=== PATIENT | male | born 1950 | race Caucasian/White ===

== ENCOUNTER → 2018-03-18 07:10 | Outpatient (CLI) | payer MEDICARE, BC, SELFPAY ==
[2018-03-18 10:27] LABS: Alanine Aminotransferase 23 IU/L (21-72); Albumin 3.9 g/dL (3.5-5.0); Albumin Globulin Ratio 1.5 (1.0-2.8); Alkaline Phosphatase 91 U/L (38-126); Aspartate Aminotransferase 20 IU/L (17-59); BUN Creatinine Ratio 17.5 (6-22); Bilirubin Total 1.1 mg/dL (0.2-1.3); Blood Urea Nitrogen 14 mg/dL (9-20); Calcium 9.3 mg/dL (8.4-10.2); Carbon Dioxide 28 mmol/L (22-32); Chloride 104 mmol/L (98-107); Cholesterol 218 mg/dL (140-199); Estimated Glomerular Filt Rate > 60.0 mL/min (>60); Globulin 2.6 g/dL (1.7-4.1); Glucose 94 mg/dL (80-110); HDL Cholesterol 44 mg/dL (40-60); HEMOLYSIS < 15 (0-50); LDL Cholesterol Calculated 147 mg/dL (<100); Potassium 4.1 mmol/L (3.4-5.1); Sodium 143 mmol/L (137-145); Total Protein 6.5 g/dL (6.3-8.2); Triglycerides 137 mg/dL (35-150)
[2018-03-18 10:48] LABS: Prostate Specific Antigen Scrn 0.628 ng/mL (0.1-4.0)
== END ==
PROVIDERS: PCP Family Medicine; Visit Provider Family Medicine
DX: Z12.5 Encounter for screening for malignant neoplasm of prostate (principal); I25.10 Atherosclerotic heart disease of native coronary artery without angina pectoris
CPT/HCPCS: 36415; 80053; 80061; 84153; G0103

== ENCOUNTER 2018-07-21 06:38 | Day surgery (SDC) | payer MEDICARE, BC, SELFPAY ==
--- NOTE | 2018-07-21 | PATH_ITS ---
[facility] Accession Number: [id number] . 01 Material submitted: . PART A: SIGMOID COLON POLYP AT 30CM X2 PART B: CECAL POLYP (COLON) PART C: ASCENDING COLON POLYP PART D: COLON POLYP AT 65CM . 02 Diagnosis: A. Biopsy Sigmoid Colon Polyp at 30 cm: Tubular adenoma involving single biopsy fragment. Single polypoid-shaped fragment of normal appearing colon mucosa consistent with mucosal polypoid redundancy (negative for evidence of neoplasm and/or hyperplasia on multiple sections). . B. Biopsy Cecal Polyp: Tubular adenoma involving all three biopsy fragments. . C. Biopsy Ascending Colon Polyp: Tubular adenoma involving single biopsy fragment. . D. Biopsy Colon Polyp at 65 cm: Polypoid-shaped fragment of normal appearing colon mucosa consistent with mucosal polypoid redundancy. Negative for evidence of neoplasm on multiple histologic sections. MRV/07/23/2018 . 02 Electronically signed: . Horacio Madison MD, Pathologist NPI- [id number] . 01 Gross description: . Part A: SIGMOID COLON POLYP AT 30CM X2: Received in formalin are 2 fragment(s) of kelly, soft tissue measuring 0.5 x 0.3 x 0.2 cm to 0.3 x 0.3 x 0.2 cm submitted entirely in 1 cassette(s) Part B: CECAL POLYP (COLON): Received in formalin are 3 fragment(s) of kelly, soft tissue measuring 0.4 x 0.3 x 0.3 cm to 0.3 x 0.2 x 0.1 cm submitted entirely in 1 cassette(s) Part C: ASCENDING COLON POLYP: Received in formalin are 3 fragment(s) of kelly, soft tissue measuring 0.4 x 0.4 x 0.3 cm to 0.3 x 0.3 x 0.1 cm submitted entirely in 1 cassette(s) Part D: COLON POLYP AT 65CM: Received in formalin is 1 fragment(s) of kelly, soft tissue measuring 0.3 x 0.3 x 0.2 cm submitted entirely in 1 cassette(s) /CKI /CKI . 02 Pathologist provided ICD-10: D12.0 . 02 CPT . 276926, 512829, 564521, 334917 Specimen Comment: A duplicate report has been generated due to demographic updates. Performed at: 01 [facility] [address] [address], [place], [place] [id number] MD Boom Collado MD Phone: [phone] Performed at: [facility] [address] [place] [id number] MD Diego Dillon MD Phone: [phone]
[2018-07-21] MEDS: SODIUM CHLORIDE 0.9% 1,000 ML 100 ML IV (07:18)
[2018-07-21 07:19] VITALS: BP 126/78; PULSE 57; RESP 24; TEMP 36.3; O2SAT 97; BMI 32.5
--- NOTE | 2018-07-21 08:06 | PM.HP.1 ---
History of Present Illness Chief complaint: Colonoscopy; [address] Narrative: Patient is a gentleman whose had polyps removed in the past and 2 sisters with colon cancer. Both her older than he. His been about 7 years since his last colonoscopy and he is here for a colonoscopy. Patient History Family & Social History Social History: household members spouse Tobacco & Substance use: Smoking Status Former smoker alcohol intake current Meds Home Medications Medication Instructions Recorded Confirmed Type aspirin 81 mg PO QDAY #0 01/21/18 03/31/18 History simvastatin 40 mg PO HS #30 tab 01/21/18 03/31/18 Rx varicella-zoster glycoE [id number] 0.5 ml IM ONCE #1 each 03/31/18 03/31/18 Rx adj(PF) 50 mcg/0.5 mL IM susp, kit Allergies Allergy/AdvReac Type Severity Reaction Status Date / Time No Known Allergies Allergy Uncoded 03/31/18 09:12 Review of Systems Review of Systems All systems reviewed & are unremarkable except as noted in HPI and below Cardiovascular Comments: No cardiac symptoms since his last stent. He sees a clinical project coordinator regularly and is told that he is doing fine Exam Vital Signs (past 8 hours): - 07/21/18 07:19 Temperature 97.4 F L Pulse Rate 57 L Respiratory Rate 24 Blood Pressure 126/78 Pulse Oximetry 97 Oxygen Delivery Method Room Air Narrative Exam Narrative: Operative no apparent distress. Eyes are nonicteric. Lungs are clear to auscultation no rales or rhonchi. Heart regular rate and rhythm without murmur gallop. Abdomen is protuberant soft nontender without mass. Alert and oriented x3. Assessment & Plan Plan: Assessment/Plan Narrative: Will proceed to colonoscopy. I have discussed the procedure and the rationale with the patient including risks of bleeding, perforation which would necessitate a major operation, failure to find remove all lesions and the potential to tattoo. They appeared to understand and wished to proceed.
--- NOTE | 2018-07-21 08:08 | PM.PREOP ---
Pre-operative Note Interval Note Pre-op Check: Yes History & Physical exam performed today by Physician Changes: No ASA Class (for procedural sedation): III
[2018-07-21] MEDS: MIDAZOLAM 5 MG/5 ML VIAL IV (08:38)
[2018-07-21] MEDS: fentaNYL 250 MCG/5 ML INJ IV (08:39)
--- NOTE | 2018-07-21 08:50 | PM.OP.ENDO ---
Operative Date/Time/Diagnoses Date of procedure: 07/21/18 Time of procedure: 08:50 Pre-op diagnosis: Screening exam. History of polyps. Family history of colon cancer. Last colonoscopy 7 years ago. Post-op diagnosis: same (Diverticulosis principally of the sigmoid colon, internal hemorrhoids, multiple polyps all small.) Procedure & Clinicians Study performed: Colonoscopy with cold biopsy Same procedure as scheduled: Yes Indications: Screening Surgeon: Brenton Vargas Procedure Notes SCOAP/Timeout: Performed Procedure in detail: The patient was placed in the left lateral decubitus position and underwent IV sedation directed by the surgeon consisting of fentanyl and Versed. Digital exam was unremarkable though I could not feel is prostate well. The scope was inserted and advanced through the rectum into the sigmoid, descending, transverse, and ascending colon. Under did extensive sigmoid diverticulosis coming into the colon and I biopsied a small lesion at approximately 30 cm from the anal verge and removed it. The cecum was reached identified by the ileocecal valve and the appendiceal opening. The ileocecal valve was[] cannulated. The scope was gradually brought out. Additional Polyps were found at cecum, ascending colon and at 65 cm from the anal verge. An additional polyp was found at 20 cm and placed in the 1st container with vial polyp at 30 cm. The scope ultimately was retroflexed in the rectum. The appearance was remarkable for prominent veins and hemorrhoids without ulceration.. The scope was removed and the patient tolerated the procedure well Scope withdrawal time: 14 min Sedation minutes: 29 Findings: diverticulosis (Principal in the sigmoid but scattered elsewhere throughout the colon.), internal hemorrhoids and polyp (Multiple. All under a cm.) Specimen(s): other (Polyps) Complications: none Recommendations: Colonscopy in 5 years Follow up: as needed Disposition: PACU
[2018-07-21 08:53] VITALS: BP 126/74; PULSE 60; RESP 12; TEMP 36.8; O2SAT 99
[2018-07-21 09:01] VITALS: BP 114/69; PULSE 58; RESP 16; O2SAT 94
[2018-07-21 09:06] VITALS: BP 122/78; PULSE 54; RESP 12; O2SAT 96
[2018-07-21 09:10] VITALS: BP 132/70; PULSE 55; RESP 14; TEMP 37.3; O2SAT 96
[2018-07-21 09:20] VITALS: BP 118/76; PULSE 54; RESP 16; TEMP 36.4; O2SAT 97
== END 2018-07-21 09:30 | disposition home or self-care (01) ==
PROVIDERS: PCP Family Medicine; Visit Provider Specialist
PROC: 0DJD8ZZ Inspection of Lower Intestinal Tract, Via Natural or Artificial Opening Endoscopic (ICD-10-PCS; CPT 45378; principal; 2018-07-21 07:45)
DX: Z86.010 Personal history of colon polyps (principal); Z80.0 Family history of malignant neoplasm of digestive organs; K57.30 Diverticulosis of large intestine without perforation or abscess without bleeding; K64.8 Other hemorrhoids; Z87.891 Personal history of nicotine dependence; D12.0 Benign neoplasm of cecum
CPT/HCPCS: 45380; 88305; 99152; 99153; J2250; J3010

== ENCOUNTER → 2019-01-13 06:48 | Outpatient (CLI) | payer MEDICARE, BC, SELFPAY ==
[2019-01-13 08:29] LABS: Add Manual Diff / Slide Review NO; Basophils Absolute Auto 100 /uL (0-100); Basophils Percent Auto 1.3 % (0-2); Eosinophils Absolute Auto 100 /uL (0-450); Eosinophils Percent Auto 2.8 % (2-4); Hematocrit 49.3 % (41-53); Hemoglobin 16.6 g/dL (13.5-17.5); Lymphocytes Absolute Auto 900 /uL (1100-4500); Lymphocytes Percent Auto 20.1 % (25-40); Mean Corpuscular HGB Conc 33.7 % (30-36); Mean Corpuscular Hemoglobin 29.7 PG (26-34); Mean Corpuscular Volume 87.9 fL (80-100); Monocytes Absolute Auto 400 /uL (0-900); Monocytes Percent Auto 8.9 % (3-14); Neutrophils Absolute Auto 3100 /uL (1500-7000); Neutrophils Percent Auto 66.9 % (50-75); Platelet Count 148 X10^3/uL (150-400); Red Blood Cell Count 5.61 X10^6/uL (4.5-5.9); Red Cell Distribution Width 14.8 % (11.6-14.8); White Blood Cell Count 4.6 X10^3/uL (4.5-11.0)
[2019-01-13 08:56] LABS: Alanine Aminotransferase 24 IU/L (21-72); Albumin 4.5 g/dL (3.5-5.0); Albumin Globulin Ratio 1.7 (1.0-2.8); Alkaline Phosphatase 93 U/L (38-126); Amylase 64 U/L (30-110); Aspartate Aminotransferase 22 IU/L (17-59); BUN Creatinine Ratio 17.8 (6-22); Bilirubin Total 1.6 mg/dL (0.2-1.3); Blood Urea Nitrogen 16 mg/dL (9-20); Calcium 9.5 mg/dL (8.4-10.2); Carbon Dioxide 27 mmol/L (22-32); Chloride 107 mmol/L (98-107); Estimated Glomerular Filt Rate > 60.0 mL/min (>60); Globulin 2.6 g/dL (1.7-4.1); Glucose 97 mg/dL (80-110); Lipase 54 U/L (23-300); Potassium 3.9 mmol/L (3.4-5.1); Sodium 142 mmol/L (137-145); Total Protein 7.1 g/dL (6.3-8.2)
[2019-01-13 09:17] LABS: C-Reactive Protein Quant 0.8 mg/dL (<1.0); HEMOLYSIS < 15 (0-50)
== END ==
PROVIDERS: PCP Family Medicine; Visit Provider Family Medicine
DX: R10.32 Left lower quadrant pain (principal)
CPT/HCPCS: 36415; 80053; 82150; 83690; 85025; 86140

== ENCOUNTER → 2019-01-21 10:01 | Outpatient (CLI) | payer MEDICARE, BC, SELFPAY ==
--- NOTE | 2019-01-21 11:12 | DI.CT.S_ITS ---
PROCEDURE: CT ABDOMEN PELVIS W CON INDICATIONS: left lower abdominal pain TECHNIQUE: After the administration of oral and intravenous contrast, 5 mm thick sections acquired from the diaphragms to the symphysis. 5 mm thick coronal and sagittal reformats were performed. For radiation dose reduction, the following was used: automated exposure control, adjustment of mA and/or kV according to patient size. COMPARISON: [facility], CT, ANGIO CHEST ABDOMEN PELVIS, 03/25/2017, 7:00. FINDINGS: Image quality: Excellent. ABDOMEN: Lung bases: Lung bases are clear. Heart size is normal. Moderate hiatal hernia containing stomach. Solid organs: There is mild hepatic steatosis. No focal liver masses. Gallbladder contains multiple small gallstones. Biliary system is non-dilated. Pancreas enhances normally. Spleen is normal in size and enhancement. No adrenal nodules. Kidneys are normal in size and enhancement, without hydronephrosis. Peritoneum and bowel: There is diffuse thickening of the sigmoid wall with multiple sigmoid diverticuli. No evidence acute diverticulitis. The appearance is similar to the prior CT of 03/25/17. Nodes and vessels: No retroperitoneal or mesenteric adenopathy. Aorta and inferior vena cava are normal in caliber. Miscellaneous: No ventral hernias. PELVIS: Genitourinary: Bladder wall thickness is normal. Miscellaneous: Left inguinal hernia containing fat. Bones: No suspicious bony lesions. No vertebral body compression fractures. IMPRESSION: 1. Moderate hiatal hernia. 2. Hepatic steatosis. 3. Gallstones. 4. Extensive sigmoid diverticulosis with a diffusely thickened wall of the sigmoid. Comment: It is noted that the patient has had previous colonoscopy in July,. Dictated by: Kermit Farris M.D. on 01/21/2019 at 13:36 Approved by: Kermit Farris M.D. on 01/21/2019 at 14:03
== END ==
PROVIDERS: PCP Family Medicine; Visit Provider Family Medicine
DX: R10.32 Left lower quadrant pain (principal); K44.9 Diaphragmatic hernia without obstruction or gangrene; K76.0 Fatty (change of) liver, not elsewhere classified; K57.30 Diverticulosis of large intestine without perforation or abscess without bleeding; K40.90 Unilateral inguinal hernia, without obstruction or gangrene, not specified as recurrent; K80.20 Calculus of gallbladder without cholecystitis without obstruction
CPT/HCPCS: 74177; Q9967

== ENCOUNTER → 2019-08-05 10:42 | Outpatient (CLI) | payer MEDICARE, BC, SELFPAY ==
--- NOTE | 2019-08-05 10:43 | DI.US.S_ITS ---
PROCEDURE: US EXTREMITY NONVASC UPPER LT INDICATIONS: LUMPS IN LEFT UPPER ARM TECHNIQUE: Real-time scanning was performed of the area of interest, with image documentation. COMPARISON: None. FINDINGS: In the lateral aspect of the left upper arm level of mid humerus, there is a 7 x 6 x 7 mm hyperechoic nodule within the subcutaneous tissue, correlating with the palpable abnormality. On Doppler ultrasound, there is no vascularity. In the medial aspect of the left upper arm, there is a hypo-to isoechoic nodule measuring 9 x 6 x 7 mm, correlating with the palpable abnormality. On Doppler ultrasound, there is no ascularity. IMPRESSION: 1. A 7 x 6 x 7 mm hyperechoic, avascular subcutaneous nodule in the lateral aspect of the left arm at the level of mid humerus, most likely a lipoma. 2. A 9 x 6 x 7 mm damj-[id number]-rzeajzhxy, avascular nodule in the medial aspect of the left arm level of mid humerus, uncertain etiology. This may represent a fibroma, granuloma or lipoma, or lymph node. If there is rapid growth, MRI with and without contrast is recommended for further evaluation. Otherwise recommend clinical followup and ultrasound followup if clinically indicated. Dictated by: Nieves Steiner M.D. on 08/05/2019 at 14:56 Approved by: Nieves Steiner M.D. on 08/05/2019 at 15:10
== END ==
PROVIDERS: PCP Family Medicine; Visit Provider Nurse Practitioner
DX: R22.32 Localized swelling, mass and lump, left upper limb (principal)
CPT/HCPCS: 76882

== ENCOUNTER → 2019-09-07 09:17 | Outpatient (CLI) | payer MEDICARE, BC, SELFPAY ==
[2019-09-07 11:36] LABS: Alanine Aminotransferase 23 IU/L (<50); Albumin 4.4 g/dL (3.5-5.0); Albumin Globulin Ratio 1.8 (1.0-2.8); Alkaline Phosphatase 86 U/L (38-126); Aspartate Aminotransferase 26 IU/L (17-59); Blood Urea Nitrogen 17 mg/dL (9-20); Calcium 9.7 mg/dL (8.4-10.2); Carbon Dioxide 28 mmol/L (22-32); Chloride 104 mmol/L (98-107); Cholesterol 261 mg/dL (140-199); Estimated Glomerular Filt Rate > 60.0 mL/min (>60); Globulin 2.4 g/dL (1.7-4.1); Glucose 87 mg/dL (80-110); HDL Cholesterol 44 mg/dL (40-60); HEMOLYSIS < 15 (0-50); LDL Cholesterol Calculated 175 mg/dL (<100); Potassium 4.6 mmol/L (3.4-5.1); Sodium 139 mmol/L (137-145); Total Protein 6.8 g/dL (6.3-8.2); Triglycerides 209 mg/dL (35-150)
== END ==
PROVIDERS: PCP Family Medicine; Visit Provider Family Medicine
DX: E78.5 Hyperlipidemia, unspecified (principal); I25.10 Atherosclerotic heart disease of native coronary artery without angina pectoris
CPT/HCPCS: 36415; 80053; 80061

== ENCOUNTER → 2020-08-28 09:44 | Outpatient (CLI) | payer MEDICARE, BC, SELFPAY ==
--- NOTE | 2020-08-28 09:46 | DI.RAD.S_ITS ---
PROCEDURE: XR RIBS RT MIN 3V W CXR 1V INDICATIONS: low t spine on the right side over rib 12 posteriorly TECHNIQUE: 2 views of the right ribs were acquired, along with a single view chest. COMPARISON: None. FINDINGS: Surgical changes and devices: None. Bones and chest wall: No fractures or dislocations. No suspicious bony lesions. Overlying soft tissues appear unremarkable. Lungs and pleura: No pleural effusions or pneumothorax. Lungs appear clear. Mediastinum: Mediastinal contours appear normal. Heart size is normal. A large hiatal hernia appears superimposed on the lower heart. IMPRESSION: No trauma found. Apparent large hiatal hernia superimposed on the lower heart at the chest midline. Dictated by: Markie Amos M.D. on 08/28/2020 at 10:12 Approved by: Markie Amos M.D. on 08/28/2020 at 10:20
--- NOTE | 2020-08-28 09:46 | DI.RAD.S_ITS ---
PROCEDURE: XR THORACIC SPINE 3V INDICATIONS: low t spine on the right side over rib 12 posteriorly TECHNIQUE: 3 views of the thoracic spine were acquired. COMPARISON: None. FINDINGS: Bones: No fractures or dislocations. No suspicious bony lesions. Twelve pairs of ribs are noted, and appear intact where visualized. Soft tissues: No paravertebral stripe thickening. IMPRESSION: No trauma found. Source of current pain is not seen. Mild degenerative disc disease incidentally noted over the lower half of the thoracic spine. Please note that if there is clinical concern for presence of spine infection MR scanning with contrast should be obtained. Dictated by: Markie Amos M.D. on 08/28/2020 at 10:20 Approved by: Markie Amos M.D. on 08/28/2020 at 10:21
== END ==
PROVIDERS: PCP Family Medicine; Referring Provider Physician Assistant; Visit Provider Physician Assistant
DX: M54.5 Low back pain (principal)
CPT/HCPCS: 71101; 72072

== ENCOUNTER → 2020-10-10 07:35 | Outpatient (CLI) | payer MEDICARE, BC, SELFPAY ==
[2020-10-10 09:01] LABS: Add Manual Diff / Slide Review NO; Basophils Absolute Auto 100 /uL (0-100); Eosinophils Absolute Auto 100 /uL (0-450); Eosinophils Percent Auto 2.3 % (2-4); Hemoglobin 15.5 g/dL (13.5-17.5); Lymphocytes Absolute Auto 1000 /uL (1100-4500); Lymphocytes Percent Auto 16.5 % (25-40); Mean Corpuscular HGB Conc 33.6 % (30-36); Mean Corpuscular Hemoglobin 28.5 PG (26-34); Mean Corpuscular Volume 84.9 fL (80-100); Monocytes Absolute Auto 400 /uL (0-900); Monocytes Percent Auto 7.4 % (3-14); Neutrophils Absolute Auto 4300 /uL (1500-7000); Neutrophils Percent Auto 72.8 % (50-75); Platelet Count 122 X10^3/uL (150-400); Red Blood Cell Count 5.42 X10^6/uL (4.5-5.9); Red Cell Distribution Width 16.4 % (11.6-14.8); White Blood Cell Count 5.9 X10^3/uL (4.5-11.0)
[2020-10-10 09:17] LABS: Alanine Aminotransferase 20 IU/L (<50); Albumin 3.9 g/dL (3.5-5.0); Albumin Globulin Ratio 1.9 (1.0-2.8); Alkaline Phosphatase 101 U/L (38-126); Aspartate Aminotransferase 22 IU/L (17-59); BUN Creatinine Ratio 18.4 (6-22); Bilirubin Total 1.2 mg/dL (0.2-1.3); Blood Urea Nitrogen 16 mg/dL (9-20); Calcium 9.2 mg/dL (8.4-10.2); Carbon Dioxide 28 mmol/L (22-32); Chloride 107 mmol/L (98-107); Cholesterol 130 mg/dL (140-199); Estimated Glomerular Filt Rate > 60.0 mL/min (>60); Globulin 2.1 g/dL (1.7-4.1); Glucose 106 mg/dL (80-110); HDL Cholesterol 38 mg/dL (40-60); HEMOLYSIS < 15 (0-50); LDL Cholesterol Calculated 61 mg/dL (<100); Potassium 4.2 mmol/L (3.4-5.1); Sodium 138 mmol/L (137-145); Triglycerides 155 mg/dL (35-150)
[2020-10-10 09:31] LABS: Prostate Specific Antigen Scrn 0.643 ng/mL (0.1-4.0)
== END ==
PROVIDERS: PCP Family Medicine; Referring Provider Family Medicine; Visit Provider Family Medicine
DX: I25.10 Atherosclerotic heart disease of native coronary artery without angina pectoris (principal); Z12.5 Encounter for screening for malignant neoplasm of prostate
CPT/HCPCS: 36415; 80053; 80061; 85025; G0103

== ENCOUNTER → 2020-11-20 11:05 | Outpatient (CLI) | payer MEDICARE, BC, SELFPAY ==
[2020-11-20 11:45] LABS: COVID19 -Nasal RAPID Negative (Negative)
== END ==
PROVIDERS: PCP Family Medicine; Visit Provider Nurse Practitioner
DX: Z20.822 Contact with and (suspected) exposure to COVID-19 (principal); Z01.812 Encounter for preprocedural laboratory examination
CPT/HCPCS: 87635; C9803

== ENCOUNTER 2020-11-21 06:23 | Day surgery (SDC) | payer MEDICARE, BC, SELFPAY ==
[2020-11-21 07:00] VITALS: BP 142/80; PULSE 56; RESP 16; TEMP 36.8; O2SAT 97; BMI 33.2
[2020-11-21] MEDS: PROPARACAINE 0.5% OPHTH SOL 2 DROPS EYE-OP (07:02)
[2020-11-21] MEDS: CATARACT EYE COMPOUND (10 DROPS/SYRINGE) 3 DROPS EYE-OP (07:13)
--- NOTE | 2020-11-21 07:33 | P.OP_ITS ---
Operative Date/Time/Diagnoses Pre-op diagnosis: Nuclear cataract right eye Procedure & Clinicians Procedure: Cataract Surgery Same procedure as scheduled: Yes Surgeon: Rene Carvalho Anesthesia Type: MAC +/- and Sedation Operative Notes Procedure in detail: Patient brought to the operating suite. Tetracaine drops placed in the right eye. The marking instrument was used to farheen the vertical and horizontal meridian. Patient was prepped and draped in sterile manner. Wire lid speculum was placed in the eye. The marking instrument was used to farheen the 10 degree meridian. Betadine drops were placed on the eye. This was irrigated. Lidocaine jelly was placed on the eye. A paracentesis port was created with a side-port blade. 0.1 mL 1% preservative free lidocaine was injected into the anterior chamber. The anterior chamber was deepened with viscoelastic. 2.6 mm keratome was used to create a temporal clear corneal incision. Cystotome and Utrata forceps were used to create continuous tear capsulorrhexis. Balanced salt solution was used to hydro dissect the nucleus. The phacoemulsification handpiece was inserted and the nucleus was removed using the stop and chop technique. The irrigation aspiration handpiece was inserted and the remaining cortex was removed. Anterior chamber was deepened with viscoelastic. An Montiel [id number] intraocular lens with a power of 17.5 was injected into the capsular bag. Irrigation aspiration handpiece was inserted and the remaining viscoelastic was removed. The lens was rotated to the 10 degree m eridian. Incision was hydrated with balanced salt solution and found to be leak free with pressure with Weck-Jody sponges. 0.1 mL Vigamox injected anterior chamber. 0.3 mL Kenalog 10 mg was injected subconjunctivally. Lid speculum was removed. The patient left the operating room in excellent condition. Complications: none Post-operative Condition: stable Disposition: same day surgery
--- NOTE | 2020-11-21 07:33 | PM.PREOP ---
Pre-operative Note Interval Note History & Physical reviewed/Exam performed by Physician: Yes Changes to H&P: No
[2020-11-21] MEDS: CHONDROIDTIN/SOD HYALURONATE 1.05 ML SYRINGE INTRAOCULA (07:54)
[2020-11-21] MEDS: LIDOCAINE JELLY 2% 5 ML 1 APPLIC TOP (07:54)
[2020-11-21] MEDS: MOXIFLOXACIN INJ 5 MG/ML VIAL EYE-OP (07:55)
[2020-11-21] MEDS: TRIAMCINOLONE 50 MG/5 ML VIAL INJ (07:55)
[2020-11-21] MEDS: TETRACAINE 0.5% OPHTH DROPS 4 ML 2 DROPS EYE-OP (07:55)
[2020-11-21] MEDS: PHENYLEPHRINE/LIDOCAINE VIAL (OR) 0.2 ML EYE-OP (07:55)
[2020-11-21] MEDS: BALANCED SALT IRRIG SOLN NO.2 500 ML, EPINEPHrine 1 MG IRR (07:56)
[2020-11-21 08:05] VITALS: BP 112/73; PULSE 54; RESP 16; TEMP 36.2; O2SAT 97
== END 2020-11-21 08:19 | disposition home or self-care (01) ==
PROVIDERS: PCP Family Medicine; Referring Provider Ophthalmology; Visit Provider Ophthalmology
PROC: (CPT 66984; principal; 2020-11-21 07:45)
DX: H25.11 Age-related nuclear cataract, right eye (principal); I25.2 Old myocardial infarction
CPT/HCPCS: 66984; J0171; J2250; J3010; J3301; V2787

== ENCOUNTER → 2020-12-04 15:16 | Outpatient (CLI) | payer MEDICARE, SELFPAY ==
[2020-12-04 16:50] LABS: COVID19 -Nasal RAPID Negative (Negative)
== END ==
PROVIDERS: PCP Family Medicine; Visit Provider Nurse Practitioner
DX: Z01.812 Encounter for preprocedural laboratory examination (principal); Z20.822 Contact with and (suspected) exposure to COVID-19
CPT/HCPCS: 87635; C9803

== ENCOUNTER 2020-12-05 06:51 | Day surgery (SDC) | payer MEDICARE, OTHER, SELFPAY ==
[2020-12-05 07:20] VITALS: BP 148/83; PULSE 56; RESP 18; TEMP 35.8; O2SAT 97; BMI 33.2
[2020-12-05] MEDS: PROPARACAINE 0.5% OPHTH SOL 2 DROPS EYE-OP (07:25)
[2020-12-05] MEDS: CATARACT EYE COMPOUND (10 DROPS/SYRINGE) 3 DROPS EYE-OP (07:33)
--- NOTE | 2020-12-05 08:00 | P.OP_ITS ---
Operative Date/Time/Diagnoses Pre-op diagnosis: Nuclear Cataract Left eye Post-op diagnosis: same Procedure & Clinicians Same procedure as scheduled: Yes Surgeon: Rene Carvalho Anesthesia Type: MAC +/- and Sedation Operative Notes Procedure in detail: Patient brought to the operating suite. Tetracaine drops placed in the left eye. marking instrument was used to farheen vertical and horizontal meridians. Patient was prepped and draped in sterile manner. Wire lid speculum was placed in the eye. Marking instrument was used to farheen 175 degree meridian. Betadine drops were placed on the eye. This was irrigated. Lidocaine jelly was placed on the eye. A paracentesis port was created with a side-port blade. 0.1 mL 1% preservative free lidocaine was injected into the anterior chamber. The anterior chamber was deepened with viscoelastic. 2.6 mm keratome was used to create a temporal clear corneal incision. Cystotome and Utrata forceps were used to create continuous tear capsulorrhexis. Balanced salt solution was used to hydro dissect the nucleus. The phacoemulsification handpiece was inserted and the nucleus was removed using the stop and chop technique. The irrigation aspiration handpiece was inserted and the remaining cortex was removed. Anterior chamber was deepened with viscoelastic. An Montiel [id number] intraocular lens with a power of 17.5 was injected into the capsular bag. Irrigation aspiration handpiece was inserted and the remaining viscoelastic was removed. The lens was rotated to the 175 degree meridian. Incision was hydrated with balanced salt solution and found to be leak free with pressure with Weck- Jody sponges. 0.1 mL Vigamox injected anterior chamber. 0.3 mL Kenalog 10 mg was injected subconjunctivally. Lid speculum was removed. The patient left the operating room in excellent condition. Complications: none Post-operative Condition: stable Disposition: same day surgery
--- NOTE | 2020-12-05 08:00 | PM.PREOP ---
Pre-operative Note Interval Note History & Physical reviewed/Exam performed by Physician: Yes Changes to H&P: No
[2020-12-05] MEDS: LIDOCAINE JELLY 2% 5 ML 1 APPLIC TOP (08:19)
[2020-12-05] MEDS: CHONDROIDTIN/SOD HYALURONATE 1.05 ML SYRINGE INTRAOCULA (08:19)
[2020-12-05] MEDS: MOXIFLOXACIN INJ 5 MG/ML VIAL EYE-OP (08:20)
[2020-12-05] MEDS: PHENYLEPHRINE/LIDOCAINE VIAL (OR) 0.2 ML EYE-OP (08:20)
[2020-12-05] MEDS: BALANCED SALT IRRIG SOLN NO.2 500 ML, EPINEPHrine 1 MG IRR (08:21)
[2020-12-05] MEDS: TRIAMCINOLONE 50 MG/5 ML VIAL INJ (08:21)
[2020-12-05 08:40] VITALS: BP 139/84; PULSE 56; RESP 16; TEMP 36.2; O2SAT 95
== END 2020-12-05 08:41 | disposition home or self-care (01) ==
PROVIDERS: PCP Family Medicine; Referring Provider Family Medicine; Visit Provider Ophthalmology
PROC: (CPT 66984; principal; 2020-12-05 08:15)
DX: H25.12 Age-related nuclear cataract, left eye (principal); I25.2 Old myocardial infarction; E78.5 Hyperlipidemia, unspecified
CPT/HCPCS: 66984; J0171; J2250; J3010; J3301; V2787

== ENCOUNTER → 2021-03-27 06:29 | Outpatient (CLI) | payer MEDICARE, OTHER, SELFPAY ==
--- NOTE | 2021-03-27 | DI.MRI.S_ITS ---
PROCEDURE: MR LUMBAR SPINE WO CON INDICATIONS: Spinal stenosis, lumbar region with neurogenic cla TECHNIQUE: Noncontrast sagittal T1 spin echo and T2 fast echo, sagittal STIR, axial T1 and T2 fast spin echo through the lumbar spine. In cases with scoliosis, additional coronal T2 fast spin echo may be performed. COMPARISON: [facility], CR, XR LUMBAR SPINE WITH OLBIQUES PLUS FLEXION EXTENSION, 03/19/2021, 8:56. FINDINGS: Image quality: Excellent. Alignment and Curvature: There is trace retrolithesis of L1 on L2, L2 on L3, L3 on L4 and L5 on S1. Bone Marrow: Marrow is of normal overall signal. No acute vertebral body compression fractures. Spinal Cord: Conus medullaris terminates at the L1 level. Visualized cord demonstrates normal signal and size. Paraspinous Soft Tissues: No paravertebral masses. Left renal cyst is noted. Discs: Moderate to severe desiccation is present throughout the lumbar spine most severe at L3-4, L5-S1. L1-L2: Minimal disc bulge without spinal stenosis. No foraminal narrowing. Facet and ligamentum flavum hypertrophy is present. L2-L3: Minimal disc bulge without spinal stenosis. Mild to moderate right and mild left foraminal narrowing. Facet and ligamentum flavum hypertrophy is present. L3-L4: Mild disc bulge with minimal canal narrowing. Mild left and severe right foraminal narrowing with particular narrowing and nerve root flattening through the subarticular recess. Facet and ligamentum flavum hypertrophy are present. L4-L5: Mild disc bulge with minimal canal narrowing. Moderate to severe left and mild right foraminal narrowing with facet and ligamentum flavum hypertrophy. L5-S1: Mild disc bulge without spinal stenosis. No foraminal narrowing. Facet and ligamentum flavum hypertrophy are present. IMPRESSION: 1. Multilevel degenerative changes. 2. Multilevel foraminal narrowing most severe at L3-4 and L4-5 secondary to facet/ligamentum flavum arthropathy. Dictated by: Sherry Owen M.D. on 03/27/2021 at 9:19 Approved by: Sherry Owen M.D. on 03/27/2021 at 9:48
== END ==
PROVIDERS: PCP Family Medicine; Referring Provider Physical Medicine & Rehabilitation Pain Medicine; Visit Provider Physical Medicine & Rehabilitation Pain Medicine
DX: M48.062 Spinal stenosis, lumbar region with neurogenic claudication (principal); M47.816 Spondylosis without myelopathy or radiculopathy, lumbar region; M47.817 Spondylosis without myelopathy or radiculopathy, lumbosacral region
CPT/HCPCS: 72148

== ENCOUNTER → 2021-08-09 07:48 | Outpatient (CLI) | payer MEDICARE, OTHER, SELFPAY ==
[2021-08-09 08:45] LABS: Add Manual Diff / Slide Review NO; Basophils Absolute Auto 100 /uL (0-100); Basophils Percent Auto 1.7 % (0-2); Eosinophils Absolute Auto 200 /uL (0-450); Eosinophils Percent Auto 4.2 % (2-4); Hematocrit 45.6 % (41-53); Hemoglobin 15.1 g/dL (13.5-17.5); Lymphocytes Absolute Auto 1200 /uL (1100-4500); Lymphocytes Percent Auto 20.5 % (25-40); Mean Corpuscular HGB Conc 33.2 % (30-36); Mean Corpuscular Hemoglobin 27.8 PG (26-34); Mean Corpuscular Volume 83.6 fL (80-100); Monocytes Absolute Auto 500 /uL (0-900); Monocytes Percent Auto 7.9 % (3-14); Neutrophils Absolute Auto 3800 /uL (1500-7000); Neutrophils Percent Auto 65.7 % (50-75); Platelet Count 139 X10^3/uL (150-400); Red Blood Cell Count 5.45 X10^6/uL (4.5-5.9); Red Cell Distribution Width 16.2 % (11.6-14.8); White Blood Cell Count 5.8 X10^3/uL (4.5-11.0)
[2021-08-09 08:59] LABS: Alanine Aminotransferase 24 IU/L (<50); Albumin 4.2 g/dL (3.5-5.0); Albumin Globulin Ratio 1.8 (1.0-2.8); Alkaline Phosphatase 94 U/L (38-126); Aspartate Aminotransferase 24 IU/L (17-59); BUN Creatinine Ratio 13.6 (6-22); Bilirubin Total 1.3 mg/dL (0.2-1.3); Blood Urea Nitrogen 14 mg/dL (9-20); Calcium 9.3 mg/dL (8.4-10.2); Carbon Dioxide 29 mmol/L (22-32); Chloride 106 mmol/L (98-107); Cholesterol 135 mg/dL (140-199); Estimated Glomerular Filt Rate > 60.0 mL/min (>60); Globulin 2.3 g/dL (1.7-4.1); Glucose 103 mg/dL (80-110); HDL Cholesterol 40 mg/dL (40-60); HEMOLYSIS < 15 (0-50); LDL Cholesterol Calculated 67 mg/dL (<100); Potassium 4.2 mmol/L (3.4-5.1); Sodium 142 mmol/L (137-145); Total Protein 6.5 g/dL (6.3-8.2); Triglycerides 141 mg/dL (35-150)
== END ==
PROVIDERS: PCP Family Medicine; Referring Provider Internal Medicine Cardiovascular Disease; Visit Provider Internal Medicine Cardiovascular Disease
DX: I25.10 Atherosclerotic heart disease of native coronary artery without angina pectoris (principal)
CPT/HCPCS: 36415; 80053; 80061; 85025

== ENCOUNTER → 2021-09-26 07:53 | Outpatient (CLI) | payer MEDICARE, OTHER, SELFPAY ==
[2021-09-26 08:58] LABS: Hemoglobin A1C% w Est Avg Glu 5.5 % (4.0-6.0)
[2021-09-26 09:27] LABS: Alanine Aminotransferase 20 IU/L (<50); Albumin 3.9 g/dL (3.5-5.0); Albumin Globulin Ratio 1.8 (1.0-2.8); Alkaline Phosphatase 91 U/L (38-126); Aspartate Aminotransferase 23 IU/L (17-59); BUN Creatinine Ratio 13.6 (6-22); Blood Urea Nitrogen 16 mg/dL (9-20); Calcium 9.7 mg/dL (8.4-10.2); Carbon Dioxide 30 mmol/L (22-32); Chloride 107 mmol/L (98-107); Estimated Glomerular Filt Rate > 60.0 mL/min (>60); Globulin 2.2 g/dL (1.7-4.1); Glucose 110 mg/dL (80-110); HEMOLYSIS < 15 (0-50); Potassium 4.3 mmol/L (3.4-5.1); Sodium 142 mmol/L (137-145); Total Protein 6.1 g/dL (6.3-8.2)
== END ==
PROVIDERS: PCP Family Medicine; Referring Provider Physician Assistant; Visit Provider Physician Assistant
DX: I25.10 Atherosclerotic heart disease of native coronary artery without angina pectoris (principal); R73.01 Impaired fasting glucose; E66.9 Obesity, unspecified
CPT/HCPCS: 36415; 80053; 83036

== ENCOUNTER → 2021-10-18 08:03 | Outpatient (CLI) | payer MEDICARE, OTHER, SELFPAY ==
[2021-10-18 09:11] LABS: Add Manual Diff / Slide Review NO; Basophils Absolute Auto 100 /uL (0-100); Basophils Percent Auto 1.4 % (0-2); Eosinophils Absolute Auto 300 /uL (0-450); Eosinophils Percent Auto 4.6 % (2-4); Hematocrit 41.2 % (41-53); Hemoglobin 13.4 g/dL (13.5-17.5); Lymphocytes Absolute Auto 1100 /uL (1100-4500); Lymphocytes Percent Auto 17.9 % (25-40); Mean Corpuscular HGB Conc 32.5 % (30-36); Mean Corpuscular Hemoglobin 26.5 PG (26-34); Mean Corpuscular Volume 81.7 fL (80-100); Monocytes Absolute Auto 500 /uL (0-900); Neutrophils Absolute Auto 4000 /uL (1500-7000); Neutrophils Percent Auto 68.1 % (50-75); Platelet Count 157 X10^3/uL (150-400); Red Blood Cell Count 5.05 X10^6/uL (4.5-5.9); Red Cell Distribution Width 15.9 % (11.6-14.8); White Blood Cell Count 5.9 X10^3/uL (4.5-11.0)
== END ==
PROVIDERS: PCP Family Medicine; Referring Provider Physician Assistant; Visit Provider Physician Assistant
DX: I25.10 Atherosclerotic heart disease of native coronary artery without angina pectoris (principal)
CPT/HCPCS: 36415; 85025

== ENCOUNTER → 2022-06-26 07:10 | Outpatient (CLI) | payer MEDICARE, OTHER, SELFPAY ==
[2022-06-26 09:29] LABS: Alanine Aminotransferase 16 IU/L (<50); Albumin 4.2 g/dL (3.5-5.0); Albumin Globulin Ratio 1.8 (1.0-2.8); Alkaline Phosphatase 95 U/L (38-126); Aspartate Aminotransferase 16 IU/L (17-59); BUN Creatinine Ratio 20.2 (6-22); Bilirubin Total 0.9 mg/dL (0.2-1.3); Blood Urea Nitrogen 18 mg/dL (9-20); Calcium 9.7 mg/dL (8.4-10.2); Carbon Dioxide 27 mmol/L (22-32); Chloride 105 mmol/L (98-107); Cholesterol 127 mg/dL (140-199); Estimated Glomerular Filt Rate > 60 mL/min (>60); Globulin 2.3 g/dL (1.7-4.1); Glucose 96 mg/dL (80-110); HDL Cholesterol 55 mg/dL (40-60); HEMOLYSIS < 15 (0-50); LDL Cholesterol Calculated 57 mg/dL (<100); Potassium 4.2 mmol/L (3.4-5.1); Sodium 141 mmol/L (137-145); Total Protein 6.5 g/dL (6.3-8.2); Triglycerides 73 mg/dL (35-150)
== END ==
PROVIDERS: PCP Family Medicine; Referring Provider Internal Medicine Cardiovascular Disease; Visit Provider Internal Medicine Cardiovascular Disease
DX: I25.10 Atherosclerotic heart disease of native coronary artery without angina pectoris (principal)
CPT/HCPCS: 36415; 80053; 80061

== ENCOUNTER → 2022-08-06 12:37 | Outpatient (CLI) | payer MEDICARE, OTHER, SELFPAY ==
[2022-08-06 13:50] LABS: Basophils Absolute Auto 100 /uL (0-100); Eosinophils Absolute Auto 100 /uL (0-450); Hematocrit 37.6 % (41-53); Hemoglobin 11.4 g/dL (13.5-17.5); Lymphocytes Absolute Auto 1000 /uL (1100-4500); Lymphocytes Percent Auto 13.8 % (25-40); Mean Corpuscular HGB Conc 30.3 % (30-36); Monocytes Absolute Auto 500 /uL (0-900); Monocytes Percent Auto 6.8 % (3-14); Neutrophils Absolute Auto 5300 /uL (1500-7000); Neutrophils Percent Auto 76.4 % (50-75); Platelet Count 170 X10^3/uL (150-400); Red Blood Cell Count 5.43 X10^6/uL (4.5-5.9); Red Cell Distribution Width 19.8 % (11.6-14.8); White Blood Cell Count 6.9 X10^3/uL (4.5-11.0)
[2022-08-06 13:54] LABS: Mean Corpuscular Volume 69.4 fL (80-100)
[2022-08-06 13:55] LABS: Add Manual Diff / Slide Review SLIDE REVIEW
[2022-08-06 13:57] LABS: Hemoglobin A1C% w Est Avg Glu 5.5 % (4.0-6.0)
[2022-08-06 14:35] LABS: INR 1.1 (0.9-1.3)
[2022-08-06 14:38] LABS: PTT Partial Thromboplastin Tim 31 SECONDS (26-36)
[2022-08-06 14:40] LABS: Anisocytosis 1+
[2022-08-06 14:41] LABS: Ovalocytes 1+
[2022-08-06 14:42] LABS: Microcytosis 2+
[2022-08-06 14:51] LABS: Alanine Aminotransferase 20 IU/L (<50); Albumin 4.4 g/dL (3.5-5.0); Albumin Globulin Ratio 1.9 (1.0-2.8); Alkaline Phosphatase 104 U/L (38-126); Aspartate Aminotransferase 18 IU/L (17-59); BUN Creatinine Ratio 16.8 (6-22); Blood Urea Nitrogen 16 mg/dL (9-20); Calcium 9.3 mg/dL (8.4-10.2); Carbon Dioxide 26 mmol/L (22-32); Chloride 108 mmol/L (98-107); Estimated Glomerular Filt Rate > 60 mL/min (>60); Globulin 2.3 g/dL (1.7-4.1); Glucose 96 mg/dL (80-110); HEMOLYSIS < 15 (0-50); Sodium 143 mmol/L (137-145); Total Protein 6.7 g/dL (6.3-8.2)
[2022-08-06 16:58] LABS: Ferritin 7 ng/mL (18-464)
[2022-08-06 20:54] LABS: HEMOLYSIS < 15 (0-50); Iron 36 ug/dL (49-181)
[2022-08-06 21:05] LABS: Percent Iron Saturation 8 % (20-50); Total Iron Binding Capacity 444 ug/dL (261-462); Transferrin 360 mg/dL (206-381)
== END ==
PROVIDERS: PCP Family Medicine; Referring Provider Family Medicine; Visit Provider Family Medicine
DX: Z01.818 Encounter for other preprocedural examination (principal); D64.9 Anemia, unspecified
CPT/HCPCS: 36415; 80053; 82728; 83036; 83540; 83550; 85025; 85610; 85730

== ENCOUNTER → 2022-09-06 10:13 | Outpatient (CLI) | payer MEDICARE, OTHER, SELFPAY ==
[2022-09-06 11:59] LABS: Add Manual Diff / Slide Review NO; Basophils Absolute Auto 100 /uL (0-100); Basophils Percent Auto 1.1 % (0-2); Eosinophils Absolute Auto 200 /uL (0-450); Eosinophils Percent Auto 3.3 % (2-4); Hematocrit 37.5 % (41-53); Hemoglobin 11.5 g/dL (13.5-17.5); Lymphocytes Absolute Auto 700 /uL (1100-4500); Lymphocytes Percent Auto 15.3 % (25-40); Mean Corpuscular HGB Conc 30.6 % (30-36); Mean Corpuscular Hemoglobin 21.7 PG (26-34); Mean Corpuscular Volume 70.9 fL (80-100); Monocytes Absolute Auto 300 /uL (0-900); Monocytes Percent Auto 5.9 % (3-14); Neutrophils Absolute Auto 3500 /uL (1500-7000); Neutrophils Percent Auto 74.4 % (50-75); Platelet Count 133 X10^3/uL (150-400); Red Blood Cell Count 5.28 X10^6/uL (4.5-5.9); Red Cell Distribution Width 22.4 % (11.6-14.8); White Blood Cell Count 4.7 X10^3/uL (4.5-11.0)
[2022-09-06 12:34] LABS: Anisocytosis 1+; Ovalocytes 1+; Poikilocytosis 1+
[2022-09-06 12:40] LABS: C-Reactive Protein Quant 0.8 mg/dL (<1.0)
[2022-09-06 13:57] LABS: Neutrophils Absolute Manual 3666 /uL (3000-5900); Total Cells Counted 100
== END ==
PROVIDERS: PCP Family Medicine; Referring Provider Family Medicine; Visit Provider Family Medicine
DX: R53.83 Other fatigue (principal)
CPT/HCPCS: 36415; 85007; 85025; 86140

== ENCOUNTER → 2022-09-09 12:36 | Outpatient (CLI) | payer MEDICARE, OTHER, SELFPAY ==
[2022-09-09 17:34] LABS: TSH w/ Reflex to FT4 1.49 uIU/mL (0.47-4.68)
== END ==
PROVIDERS: PCP Family Medicine; Referring Provider Family Medicine; Visit Provider Family Medicine
DX: R68.89 Other general symptoms and signs (principal); D64.9 Anemia, unspecified
CPT/HCPCS: 36415; 84443

== ENCOUNTER 2022-10-11 06:43 | Day surgery (SDC) | payer MEDICARE, OTHER, SELFPAY ==
[2022-10-11] VITALS (7 sets, daily range): BP systolic 84–132; BP diastolic 51–73; PULSE 56–68; RESP 14–22; TEMP 36.3–36.7; O2SAT 94–98; BMI 31.0
--- NOTE | 2022-10-11 | PATH_ITS ---
[facility] Accession Number: [id number] . 01 Material submitted: . PART A: cecum - RECAL POLYP PART B: rectum - RECTAL POLYP . 01 Diagnosis: A. Rectum, Polyp, Biopsy: Tubular adenoma. . B. Rectum, Polyp, Biopsy: Hyperplastic polyp. [facility] 10/14/2022 1146 Local . 01 Electronically signed: . Aleena Mccormack MD, Pathologist NPI- [id number] . 01 Gross description: . Part A: RECAL POLYP: Received in formalin are 2 fragment(s) of kelly, soft tissue measuring 0.5 x 0.1 x 0.1 cm to 0.2 x 0.2 x 0.1 cm submitted entirely in 1 cassette(s) Part B: RECTAL POLYP: Received in formalin are 2 fragment(s) of kelly, soft tissue measuring 0.3 x 0.2 x 0.1 cm to 0.3 x 0.1 x 0.1 cm submitted entirely in 1 cassette(s) /CPE 10/12/2022 0907 Local . 01 Pathologist provided ICD-10: D12.8 . 01 CPT . 010981, 284234 Specimen Comment: A courtesy copy of this report has been sent to [facility]ology Performed at: 01 [facility] [address], [place], [place] [id number] MD Boom Collado MD Phone: [phone]
[2022-10-11] MEDS: LACTATED RINGERS 1,000 ML 42 ML IV (07:18)
--- NOTE | 2022-10-11 07:43 | PM.PREOP ---
Pre-operative Note COVID-19 COVID-19 status: Negative Interval Note History & Physical reviewed/Exam performed by Physician: Yes Changes to H&P: No
--- NOTE | 2022-10-11 13:03 | P.OP.COLON_ITS ---
Operative Date/Time/Diagnoses Pre-op diagnosis: Screening for colon cancer Post-op diagnosis: same Procedure & Clinicians Study performed: Colonoscopy and biopsy Same procedure as scheduled: Yes Indications: Screening, anemia. Surgeon: Zeina Glasgow Procedure Notes Procedure in detail: Patient was taken to the endoscopy suite and placed in a left lateral decubitus position. A time-out was performed. Conscious sedation was provided by an anesthesia provider. Digital rectal exam was performed there were no masses or strictures. The colonoscope was introduced into the anal canal and advanced through to the cecum. A photograph was taken of the appendiceal orifice the bowel prep was very good [place] bowel prep score of 3. The scope was withdrawn for a total withdrawal time of 20 minutes. Two polyps were seen and biopsied. There was 1 in the cecal area which was removed and biopsied with forceps and a there were a few very small and hyperplastic appearing in the rectal area which was again biopsied with forceps. There were large number of diverticula throughout the sigmoid colon. There is a family history of colon cancer and likely recommendation will be for a 5 year follow-up exam. Final pathology will be reviewed. Specimen(s): other (1. Cecal polyp 2. Rectal polyp)
== END 2022-10-11 09:10 | disposition home or self-care (01) ==
PROVIDERS: Surgery; PCP Family Medicine; Referring Provider Surgery; Visit Provider Surgery
PROC: 0DJD8ZZ Inspection of Lower Intestinal Tract, Via Natural or Artificial Opening Endoscopic (ICD-10-PCS; CPT 45378; principal; 2022-10-11 07:45)
DX: D50.9 Iron deficiency anemia, unspecified (principal); Z80.0 Family history of malignant neoplasm of digestive organs; Z86.010 Personal history of colon polyps; K57.30 Diverticulosis of large intestine without perforation or abscess without bleeding; D12.8 Benign neoplasm of rectum
CPT/HCPCS: 45380; J2704

== ENCOUNTER → 2022-10-15 14:23 | Outpatient (CLI) | payer MEDICARE, OTHER, SELFPAY ==
[2022-10-15 15:42] LABS: Add Manual Diff / Slide Review NO; Basophils Absolute Auto 100 /uL (0-100); Basophils Percent Auto 1.2 % (0-2); Eosinophils Absolute Auto 200 /uL (0-450); Eosinophils Percent Auto 3.1 % (2-4); Hematocrit 39.6 % (41-53); Hemoglobin 12.6 g/dL (13.5-17.5); Lymphocytes Absolute Auto 1000 /uL (1100-4500); Lymphocytes Percent Auto 15.4 % (25-40); Mean Corpuscular HGB Conc 31.8 % (30-36); Mean Corpuscular Volume 78.5 fL (80-100); Monocytes Absolute Auto 500 /uL (0-900); Monocytes Percent Auto 8.3 % (3-14); Neutrophils Absolute Auto 4700 /uL (1500-7000); Platelet Count 162 X10^3/uL (150-400); Red Blood Cell Count 5.05 X10^6/uL (4.5-5.9); Red Cell Distribution Width 23.6 % (11.6-14.8); White Blood Cell Count 6.5 X10^3/uL (4.5-11.0)
[2022-10-15 15:55] LABS: Anisocytosis 2+; Microcytosis 1+; Ovalocytes 1+; Poikilocytosis 1+
[2022-10-15 15:56] LABS: Alanine Aminotransferase 16 IU/L (<50); Albumin Globulin Ratio 1.7 (1.0-2.8); Alkaline Phosphatase 96 U/L (38-126); Aspartate Aminotransferase 19 IU/L (17-59); BUN Creatinine Ratio 15.1 (6-22); Bilirubin Total 0.7 mg/dL (0.2-1.3); Blood Urea Nitrogen 14 mg/dL (9-20); Calcium 9.1 mg/dL (8.4-10.2); Carbon Dioxide 28 mmol/L (22-32); Chloride 107 mmol/L (98-107); Estimated Glomerular Filt Rate > 60 mL/min (>60); Globulin 2.4 g/dL (1.7-4.1); Glucose 91 mg/dL (80-110); HEMOLYSIS < 15 (0-50); Potassium 4.3 mmol/L (3.4-5.1); Sodium 142 mmol/L (137-145); Total Protein 6.4 g/dL (6.3-8.2)
== END ==
PROVIDERS: PCP Family Medicine; Referring Provider Family Medicine; Visit Provider Family Medicine
DX: D64.9 Anemia, unspecified (principal)
CPT/HCPCS: 36415; 80053; 85025

== ENCOUNTER → 2023-01-06 07:57 | Outpatient (CLI) | payer MEDICARE, OTHER, SELFPAY ==
[2023-01-06 09:16] LABS: Add Manual Diff / Slide Review NO; Basophils Absolute Auto 100 /uL (0-100); Basophils Percent Auto 1.2 % (0-2); Eosinophils Absolute Auto 200 /uL (0-450); Eosinophils Percent Auto 3.1 % (2-4); Hematocrit 45.8 % (41-53); Lymphocytes Absolute Auto 1000 /uL (1100-4500); Lymphocytes Percent Auto 18.5 % (25-40); Mean Corpuscular HGB Conc 32.8 % (30-36); Mean Corpuscular Hemoglobin 28.5 PG (26-34); Mean Corpuscular Volume 86.9 fL (80-100); Monocytes Absolute Auto 400 /uL (0-900); Monocytes Percent Auto 8.1 % (3-14); Neutrophils Absolute Auto 3800 /uL (1500-7000); Neutrophils Percent Auto 69.1 % (50-75); Platelet Count 132 X10^3/uL (150-400); Red Blood Cell Count 5.28 X10^6/uL (4.5-5.9); Red Cell Distribution Width 19.8 % (11.6-14.8); White Blood Cell Count 5.5 X10^3/uL (4.5-11.0)
[2023-01-06 09:51] LABS: Alanine Aminotransferase 24 IU/L (<50); Albumin 4.2 g/dL (3.5-5.0); Alkaline Phosphatase 87 U/L (38-126); Aspartate Aminotransferase 23 IU/L (17-59); BUN Creatinine Ratio 15.9 (6-22); Blood Urea Nitrogen 14 mg/dL (9-20); Calcium 9.5 mg/dL (8.4-10.2); Carbon Dioxide 29 mmol/L (22-32); Chloride 104 mmol/L (98-107); Estimated Glomerular Filt Rate > 60 mL/min (>60); Globulin 2.1 g/dL (1.7-4.1); Glucose 94 mg/dL (80-110); HEMOLYSIS < 15 (0-50); Sodium 141 mmol/L (137-145); Total Protein 6.3 g/dL (6.3-8.2)
== END ==
PROVIDERS: PCP Family Medicine; Referring Provider Internal Medicine Cardiovascular Disease; Visit Provider Internal Medicine Cardiovascular Disease
DX: I25.10 Atherosclerotic heart disease of native coronary artery without angina pectoris (principal)
CPT/HCPCS: 36415; 80053; 85025

== ENCOUNTER → 2023-01-29 07:33 | Outpatient (CLI) | payer MEDICARE, OTHER, SELFPAY ==
[2023-01-29 10:40] LABS: Prostate Specific Antigen Scrn 0.818 ng/mL (0.1-4.0)
== END ==
PROVIDERS: PCP Family Medicine; Referring Provider Family Medicine; Visit Provider Family Medicine
DX: Z12.5 Encounter for screening for malignant neoplasm of prostate (principal)
CPT/HCPCS: 36415; G0103

== ENCOUNTER → 2023-02-03 14:22 | Outpatient (CLI) | payer MEDICARE, OTHER, SELFPAY ==
--- NOTE | 2023-02-03 14:24 | DI.US.S_ITS ---
PROCEDURE: US ABD AORTA ANEURYSM SCREEN INDICATIONS: FORMER SMOKER TECHNIQUE: Real time scanning was performed of the aorta and iliac arteries, with image documentation. COMPARISON: None. FINDINGS: Aorta: Proximal aortic is not well seen. Mid-aorta measures 2.4 cm. Distal aortic diameter is 2.6 cm. Iliac arteries: Right common iliac artery measures 1.9 cm. Left common iliac artery measures 1.7 cm. Trace amount of atherosclerotic plaques are noted in bilateral proximal iliac arteries and distal abdominal aorta. IMPRESSION: Mild atherosclerotic disease in abdominal aorta and bilateral iliac arteries. No abdominal aortic aneurysm. Slight ectasias of distal abdominal aorta as above. Dictated by: Nahun Miranda M.D. on 02/03/2023 at 16:11 Approved by: Nahun Miranda M.D. on 02/03/2023 at 16:11
== END ==
PROVIDERS: PCP Family Medicine; Referring Provider Family Medicine; Visit Provider Family Medicine
DX: I70.0 Atherosclerosis of aorta (principal); Z13.6 Encounter for screening for cardiovascular disorders; I70.203 Unspecified atherosclerosis of native arteries of extremities, bilateral legs; Z87.891 Personal history of nicotine dependence
CPT/HCPCS: 76706

== ENCOUNTER → 2023-11-16 10:36 | Outpatient (CLI) | payer MEDICARE, OTHER, SELFPAY ==
--- NOTE | 2023-11-16 10:38 | DI.CT.S_ITS ---
PROCEDURE: CT CHEST WO CON INDICATIONS: chest pain/discomfort TECHNIQUE: Noncontrast 5 mm thick sections acquired from the pulmonary apices to the posterior costophrenic angles. 1 mm lung window, 5 mm thick coronal and sagittal and 7 mm axial MIP reformats were then acquired. For radiation dose reduction, the following was used: automated exposure control, adjustment of mA and/or kV according to patient size. COMPARISON: None. FINDINGS: Image quality: Diagnostic. Lower Neck: No enlarged lymph nodes. Thyroid: No thyroid nodules which require sonographic follow up, per consensus guidelines. Axillae: No enlarged lymph nodes. Chest Wall: Unremarkable. Bones: No acute fractures. No aggressive appearing lytic or blastic osseous lesions. Mild multilevel degenerative changes of the spine. Lungs and Pleura: No pneumothorax or pleural effusions. No suspicious pulmonary nodule or consolidation. A few scattered subcentimeter benign calcified granulomas. Moderate apical predominant centrilobular and paraseptal emphysema. Patent central airways. Heart: Heart size is normal. No pericardial effusion. Moderate to severe right coronary and mild to moderate LAD and left circumflex coronary calcification. Thoracic Vessels: The aorta and pulmonary arteries demonstrate normal size. Mild calcification of the thoracic aorta. Mediastinum and Brandy: No enlarged lymph nodes. Esophagus: No wall thickening. Large hiatal hernia. Upper Abdomen: Visualized upper abdomen solid organs and bowel loops demonstrate no acute findings. Cholelithiasis without acute cholecystitis. Mild calcification of the abdominal aorta and splenic vasculature. Partially visualized upper pole renal simple cyst. IMPRESSION: 1. No suspicious pulmonary nodule or consolidation. If patient meets criteria, consider annual low-dose chest CT for lung cancer screening. 2. Moderate emphysema. 3. Moderate to severe right coronary and mild to moderate LAD and left circumflex coronary calcification. 4. Large hiatal hernia. 5. Cholelithiasis without acute cholecystitis. Dictated by: Allie Garvin M.D. on 11/16/2023 at 15:05 Approved by: Allie Garvin M.D. on 11/16/2023 at 15:09
== END ==
PROVIDERS: PCP Family Medicine; Referring Provider Family Medicine; Visit Provider Family Medicine
DX: R07.89 Other chest pain (principal); R06.02 Shortness of breath; R53.82 Chronic fatigue, unspecified; J43.2 Centrilobular emphysema; I25.10 Atherosclerotic heart disease of native coronary artery without angina pectoris; K44.9 Diaphragmatic hernia without obstruction or gangrene; K80.20 Calculus of gallbladder without cholecystitis without obstruction
CPT/HCPCS: 71250

== ENCOUNTER → 2023-12-01 08:08 | Outpatient (CLI) | payer MEDICARE, OTHER, SELFPAY ==
[2023-12-01 08:40] LABS: Add Manual Diff / Slide Review NO; Basophils Absolute Auto 100 /uL (0-100); Basophils Percent Auto 1.2 % (0-2); Eosinophils Absolute Auto 200 /uL (0-450); Eosinophils Percent Auto 3.4 % (2-4); Hematocrit 48.9 % (41-53); Hemoglobin 16.6 g/dL (13.5-17.5); Lymphocytes Absolute Auto 900 /uL (1100-4500); Mean Corpuscular HGB Conc 33.9 % (30-36); Mean Corpuscular Hemoglobin 30.9 PG (26-34); Mean Corpuscular Volume 91.1 fL (80-100); Monocytes Absolute Auto 500 /uL (0-900); Monocytes Percent Auto 8.6 % (3-14); Neutrophils Absolute Auto 3800 /uL (1500-7000); Neutrophils Percent Auto 69.8 % (50-75); Platelet Count 140 X10^3/uL (150-400); Red Blood Cell Count 5.37 X10^6/uL (4.5-5.9); Red Cell Distribution Width 13.9 % (11.6-14.8); White Blood Cell Count 5.4 X10^3/uL (4.5-11.0)
[2023-12-01 08:50] LABS: Alanine Aminotransferase 21 IU/L (<50); Albumin Globulin Ratio 1.7 (1.0-2.8); Alkaline Phosphatase 86 U/L (38-126); Aspartate Aminotransferase 21 IU/L (17-59); BUN Creatinine Ratio 19.8 (6-22); Bilirubin Total 1.1 mg/dL (0.2-1.3); Blood Urea Nitrogen 19 mg/dL (9-20); Calcium 9.4 mg/dL (8.4-10.2); Carbon Dioxide 29 mmol/L (22-32); Chloride 106 mmol/L (98-107); Cholesterol 164 mg/dL (140-199); Estimated Glomerular Filt Rate > 60 mL/min (>60); Globulin 2.4 g/dL (1.7-4.1); Glucose 102 mg/dL (80-110); HDL Cholesterol 41 mg/dL (40-60); HEMOLYSIS < 15 (0-50); LDL Cholesterol Calculated 79 mg/dL (<100); Sodium 141 mmol/L (137-145); Total Protein 6.4 g/dL (6.3-8.2); Triglycerides 222 mg/dL (35-150)
[2023-12-01 09:19] LABS: Thyroid Stimulating Hormone 2.17 uIU/mL (0.47-4.68)
== END ==
PROVIDERS: PCP Family Medicine; Referring Provider Family Medicine; Visit Provider Family Medicine
DX: R53.82 Chronic fatigue, unspecified (principal); E66.9 Obesity, unspecified; D50.8 Other iron deficiency anemias; K57.90 Diverticulosis of intestine, part unspecified, without perforation or abscess without bleeding; I25.10 Atherosclerotic heart disease of native coronary artery without angina pectoris; Z13.6 Encounter for screening for cardiovascular disorders; Z79.899 Other long term (current) drug therapy
CPT/HCPCS: 36415; 80053; 80061; 84443; 85025

== ENCOUNTER → 2023-12-16 08:13 | Outpatient (CLI) | payer MEDICARE, OTHER, SELFPAY | PROVIDERS: PCP Family Medicine; Referring Provider Internal Medicine Critical Care Medicine; Visit Provider Internal Medicine Critical Care Medicine | DX: R53.83 Other fatigue (principal); Z87.891 Personal history of nicotine dependence; J98.8 Other specified respiratory disorders | CPT/HCPCS: 94060; 94726; 94729 ==

== ENCOUNTER → 2024-04-25 10:29 | Outpatient (CLI) | payer MEDICARE, OTHER, SELFPAY ==
--- NOTE | 2024-04-25 10:31 | DI.MRI.S_ITS ---
PROCEDURE: MR LUMBAR SPINE WO CON INDICATIONS: lumbar pain/injury TECHNIQUE: Noncontrast sagittal T1 spin echo and T2 fast echo, sagittal STIR, and T2 fast spin echo through the lumbar spine. In cases with scoliosis, additional coronal T2 fast spin echo may be performed. COMPARISON: [facility], MR, MR LUMBAR SPINE WO CON, 03/27/2021, 6:41. FINDINGS: Image quality: Excellent. Alignment and Curvature: Slight leftward curvature of the lumbar spine, centered at L3-4. Bone Marrow: Mild edema in the superior endplate of L3.. No acute vertebral body compression fractures. Spinal Cord: Conus medullaris terminates at the L1 level. Visualized cord demonstrates normal signal and size. Paraspinous Soft Tissues: No paravertebral masses. T12-L1: Disc desiccation. L1-L2: Disc desiccation. L2-L3: Broad-based disc bulge, disc desiccation, mild facet effusions, mild ligamentum flavum hypertrophy. Mild spinal canal narrowing. Upwi-xp-[id number] right and left neural foraminal narrowing. Possible annular fissure. L3-L4: Right foraminal disc protrusion, ligamentum flavum hypertrophy, small left facet effusion. Severe right and [id number]-[id number] left neural foraminal narrowing. L4-L5: Broad-based disc bulge, facet hypertrophy. Moderate right and moderate to severe left neural foraminal narrowing. L5-S1: Bony fusion anteriorly. Facet hypertrophy. IMPRESSION: Multilevel degenerative disc disease and facet arthrosis, with slight progression from prior. Of note: Foraminal disc protrusion at the right side L3-4, causing severe right neural foraminal narrowing. Moderate right and moderate to severe left neural foraminal narrowing at L4-5. Dictated by: Kaleb Moon M.D. on 04/26/2024 at 10:24 Approved by: Kaleb Moon M.D. on 04/26/2024 at 10:39
== END ==
PROVIDERS: PCP Family Medicine; Referring Provider Family Medicine; Visit Provider Family Medicine
DX: M47.816 Spondylosis without myelopathy or radiculopathy, lumbar region (principal); S34.109A Unspecified injury to unspecified level of lumbar spinal cord, initial encounter; M51.36 Other intervertebral disc degeneration, lumbar region; M51.26 Other intervertebral disc displacement, lumbar region; M48.061 Spinal stenosis, lumbar region without neurogenic claudication; M47.817 Spondylosis without myelopathy or radiculopathy, lumbosacral region; M43.27 Fusion of spine, lumbosacral region; X58.XXXA Exposure to other specified factors, initial encounter
CPT/HCPCS: 72148

== ENCOUNTER → 2024-10-04 14:25 | Outpatient (CLI) | payer MEDICARE, OTHER, SELFPAY ==
[2024-10-04 15:52] LABS: Influenza A - CEPHEID Flu A NEGATIVE (NEGATIVE); Influenza B - CEPHEID Flu B NEGATIVE (NEGATIVE); Respiratory Syncytial Virus Negative (Negative)
[2024-10-04 15:53] LABS: COVID-19 CEPHEID 4-PLEX PCR Negative (Negative)
== END ==
PROVIDERS: PCP Family Medicine; Visit Provider Nurse Practitioner Family
DX: R05.1 Acute cough (principal)
CPT/HCPCS: 0241U

== ENCOUNTER → 2024-10-04 14:34 | Outpatient (CLI) | payer MEDICARE, OTHER, SELFPAY ==
--- NOTE | 2024-10-04 14:36 | DI.RAD.S_ITS ---
PROCEDURE: XR CHEST 2V INDICATIONS: Cough TECHNIQUE: 2 views of the chest were acquired. COMPARISON: [facility], , CHEST 1 VIEW, 03/25/2017, 6:54. FINDINGS: Surgical changes and devices: None. Lungs and pleura: Lungs are clear. No pleural effusions or pneumothorax. Mediastinum: Large hiatal hernia. Mediastinal contours are normal. Heart size is normal. Bones and chest wall: No suspicious bony abnormalities. Soft tissues appear unremarkable. IMPRESSION: No acute cardiopulmonary abnormality is seen. Dictated by: Huber Gaspar M.D. on 10/04/2024 at 15:09 Approved by: Huber Gaspar M.D. on 10/04/2024 at 15:11
== END ==
PROVIDERS: PCP Family Medicine; Referring Provider Nurse Practitioner Family; Visit Provider Nurse Practitioner Family
DX: R05.1 Acute cough (principal); K44.9 Diaphragmatic hernia without obstruction or gangrene
CPT/HCPCS: 0241U; 71046

== ENCOUNTER → 2024-12-16 12:12 | Outpatient (CLI) | payer MEDICARE, OTHER, SELFPAY ==
--- NOTE | 2024-12-16 12:15 | DI.MRI.S_ITS ---
PROCEDURE: MR HEAD/BRAIN WO CON INDICATIONS: concern for TIA TECHNIQUE: Non-contrast axial T1 spin echo, axial T2 fast spin echo, sagittal and axial FLAIR, coronal T2 fast spin echo, axial gradient echo, axial diffusion and ADC through the brain. COMPARISON: None. FINDINGS: Image quality: Excellent. CSF spaces: Ventricles appear symmetric in size and shape. Basal cisterns are patent. No extra-axial fluid collections. Brain: No intracranial bleeds or mass effects. There is cerebral volume loss for age. There are periventricular and deep white matter chronic small vessel ischemic changes. Brainstem appears normal. Diffusion-weighted images show no acute infarct. No chronic ischemic insults. Normal intravascular flow voids are present. Skull and face: Calvarial bone marrow is normal in signal. Orbits are normal. Sinuses: Sinuses and mastoids are clear. IMPRESSION: 1. No acute infarction. No acute intracranial bleed, midline shift or mass effect. 2. Age related volume loss and mild white matter small vessel chronic ischemic changes. Dictated by: Nahun Miranda M.D. on 12/16/2024 at 13:30 Approved by: Nahun Miranda M.D. on 12/16/2024 at 13:31
== END ==
PROVIDERS: PCP Family Medicine; Referring Provider Family Medicine; Visit Provider Family Medicine
DX: R41.0 Disorientation, unspecified (principal); R53.83 Other fatigue; E66.9 Obesity, unspecified; R53.1 Weakness; R26.89 Other abnormalities of gait and mobility
CPT/HCPCS: 70551

== ENCOUNTER 2025-01-17 08:39 | Emergency (ER) | payer MEDICARE, OTHER, SELFPAY ==
[2025-01-17] VITALS (18 sets, daily range): BP systolic 119–168; BP diastolic 65–92; PULSE 50–68; RESP 13–31; TEMP 36.7; O2SAT 92–98; BMI 30.2
--- NOTE | 2025-01-17 08:55 | DI.CT.S_ITS ---
PROCEDURE: CT HEAD/BRAIN WO CON INDICATIONS: ? TIa, had dizzy, weak,disoriented episode, resolved. TECHNIQUE: Noncontrast 4.5 mm thick angled axial sections acquired from the foramen magnum to the vertex, with coronal and sagittal reformats. For radiation dose reduction, the following was used: automated exposure control, adjustment of mA and/or kV according to patient size. COMPARISON: None. FINDINGS: Image quality: Diagnostic. CSF spaces: Basal cisterns are patent. No extra-axial fluid collections. The ventricles are symmetric in size and shape. Brain: No intracranial bleeds or masses. There is cerebral volume loss for age, with resultant ventricular and sulcal prominence. There are periventricular and deep white matter chronic small vessel ischemic changes. There is intracranial internal carotid artery atherosclerosis. Skull and face: Calvarium and visualized facial bones appear intact, without suspicious lesions. Sinuses: Visualized sinuses and mastoids are clear. IMPRESSION: No acute intracranial pathology. Dictated by: Kermit Farris M.D. on 01/17/2025 at 9:51 Approved by: Kermit Farris M.D. on 01/17/2025 at 9:52
--- NOTE | 2025-01-17 08:56 | DI.CT.S_ITS ---
PROCEDURE: CT ANGIO HEAD AND NECK INDICATIONS: ? TIa, had dizzy, weak,disoriented episode, resolved. TECHNIQUE: After the administration of intravenous contrast, 1 mm thick sections acquired from the aortic arch through the [place] of [place]. 3-dimensional egzqibo-qkdmlfcrl-bentvkhcge (MIP) and/or volume rendering reformats were acquired of the central intracranial vasculature and neck separately. For radiation dose reduction, the following was used: automated exposure control, adjustment of mA and/or kV according to patient size. COMPARISON: [facility], CT, CT CHEST WO CON, 11/16/2023, 10:45. [facility], CT, CT HEAD/BRAIN WO CON, 01/17/2025, 9:31. [facility], MR, MR HEAD/BRAIN WO CON, 12/16/2024, 12:27. FINDINGS: Image quality: Diagnostic. BRAIN: CSF spaces: Ventricles are normal in size and shape. Basal cisterns are patent. No extra-axial fluid collections. Brain: No significant abnormality of the brain can be seen. Skull and face: Calvarium and facial bones appear intact, without suspicious lesions. Orbits appear normal. Sinuses: Sinuses and mastoids are clear. HEAD CT ANGIOGRAPHY: Anterior circulation: Intracranial internal carotid arteries are normal in size and flow. The flow within the paired anterior cerebral arteries is normal and symmetric. The flow within the middle cerebral arteries is normal and symmetric. The anterior communicating artery is seen. No aneurysms are seen. Posterior circulation: Visualized portions of the vertebral arteries demonstrate normal caliber, and join to form a normal appearing basilar artery. Flow within the posterior cerebral arteries is normal and symmetric. No aneurysms are seen. NECK CT ANGIOGRAPHY: Carotid system: The great vessels demonstrate a conventional anatomy as they arise from the aortic arch. The origins of the common carotid arteries appear patent. The common carotid arteries demonstrate normal caliber and courses. The bifurcation regions are both widely patent. The internal carotid arteries demonstrate normal calibers and courses. Posterior circulation: The origins of the vertebral arteries both appear widely patent. The more superior extracranial portions of both vertebral arteries also demonstrate normal courses and calibers. They join to form a normal appearing basilar artery. Soft tissues: Visualized neck soft tissues demonstrate a submucosal mildly hyperdense oval masslike density present in the right lateral aspect upper thoracic esophagus measuring 2.2 x 1.8 x 1.8 cm. Reference coronal image 132 of series 5 and axial image 290 of series 4. There is moderate biapical emphysematous change. Bones: No suspicious bony lesions. Visualized cervical spine appears normally aligned. IMPRESSION: No significant intracranial arterial abnormality is seen. No significant abnormality is seen within the arteries of the neck. Submucosal mass, upper thoracic esophagus, to the right of midline. Moderate centrilobular emphysema. Comment: Recommend nonemergent upper endoscopy. Any quantitative measurements of stenosis were performed using NASCET criteria. Dictated by: Kermit Farris M.D. on 01/17/2025 at 9:52 Approved by: Kermit Farris M.D. on 01/17/2025 at 9:57
--- NOTE | 2025-01-17 08:56 | EKG_ITS ---
[facility] [address] [place] [address] Test Date: 2025-01-17 Pat Name: Sahrif Manning Department: Room: Gender: Male [employer]: HAN : 1950 Requested By: Order Number: [id number] Reading MD: Dashawn Howard MD Measurements Intervals [place] Rate: 61 P: 1 KS: 148 QRS: 21 QRSD: 92 T: 83 QT: 426 QTc: 428 Interpretive Statements Normal sinus rhythm Low voltage QRS ST & T wave abnormality, consider anterior ischemia Electronically Signed On 01-17-2025 11:44:19 PDT by Dashawn Howard MD
--- NOTE | 2025-01-17 08:58 | ED_ITS ---
HPI - General Adult General Chief complaint: Dizziness Stated complaint: Weak, Confused, Disoriented possible TIA per Time Seen by Provider: 01/17/25 08:44 Source: patient, RN notes reviewed and old records reviewed Mode of arrival: Ambulatory Limitations: no limitations History of Present Illness HPI narrative: 74-year-old male history of coronary artery disease with cardiac stents, GERD, hypertension, dyslipidemia, COPD on aspirin 81 mg daily presents with complaint of feeling dizzy, weak and confused few minutes at a time it happened 3 times yesterday patient states he had a similar episode this morning at 6:30 a.m.. was with him for some of the she states he was sort of squints his face has a headache but he states no headaches. She states he has some word-finding issues but no slurred speech no facial droop. Patient denies any headaches, he denies any vision changes. No numbness tingling or weakness that he was appreciated. He has felt cold but no fevers or chills. Has chronic dyspnea from his COPD but states not worsened from normal, no chest pain or pressure. No nausea or vomiting. No issues with bowel movements, no dysuria urgency or frequency. Patient states and similar episodes last month had an MRIs and outpatient with his primary care which was negative. He continues to take medications for COPD, GERD, hypertension, dyslipidemia has had cardiac stents x3 had a heart catheterization about a year ago which was negative with clear coronaries. Has had prior back surgery. No known drug allergies. No tobacco has 1-2 alcoholic drinks daily, uses marijuana edibles daily for sleep, no other recreational drugs. Dr. Weinstein is his primary care physician, Dr. Rendon is his handle lathe operator. Patient does note his blood pressure has been slowly moving upwards was typically 120s over 60s but recently has been 140s over 70s states yesterday it was 180/100. Notes that he did have an EGD a month ago so found to have inflammation and was started on pantoprazole in his fluoxetine was incrased as well in the past month. Related Data Home Medications Medication Instructions Recorded Confirmed aspirin 81 mg tablet,delayed 81 mg PO DAILY 09/03/21 12/16/24 release (Adult Low Dose Aspirin) cetirizine 10 mg tablet (Zyrtec) 10 mg PO DAILY PRN Allergy Symptoms 12/03/21 12/16/24 nitroglycerin 0.4 mg sublingual 0.4 mg sublingual Q5-15M PRN Chest 12/03/21 12/16/24 tablet Pain multivitamin 1 tab PO DAILY 11/28/22 12/16/24 ranolazine 500 mg tablet,extended 500 mg PO BID 08/04/23 12/16/24 release,12 hr pantoprazole 40 mg tablet,delayed 40 mg PO DAILY 12/08/24 12/16/24 release Previous Rx's Medication Instructions Recorded atorvastatin 40 mg tablet 40 mg PO BEDTIME #90 tabs 02/02/21 isosorbide dinitrate 20 mg tablet 20 mg PO BID #180 tabs 12/08/23 lisinopril 5 mg tablet 5 mg PO DAILY #90 tabs 12/08/23 ondansetron 4 mg disintegrating 4 mg PO TID PRN nausea and 12/08/23 tablet vomiting #30 tabs albuterol sulfate 90 mcg/actuation 2 puff inhalation Q6H PRN 01/23/24 aerosol inhaler (Ventolin HFA) shortness of breath or wheezing #6.7 grams hydrocodone 5 mg-acetaminophen 325 1 tab PO Q8H PRN pain #15 tabs 04/22/24 mg tablet tiotropium 2.5 mcg-olodaterol 2.5 2 puff inhalation DAILY #4 grams 12/08/24 mcg/actuation mist for inhalation (Stiolto Respimat) fluoxetine 20 mg capsule 20 mg PO DAILY #90 caps 01/05/25 clopidogrel 75 mg tablet (Plavix) 75 mg PO DAILY #20 tabs 01/17/25 Allergies Allergy/AdvReac Type Severity Reaction Status Date / Time No Known Drug Allergies Allergy Verified 12/16/24 07:24 Review of Systems Review of Systems ROS Unobtainable: All systems reviewed & are unremarkable except as noted in HPI and below Patient History Medical History Fatigue Hiatal hernia Iron deficiency anemia Lumbar spinal stenosis Obesity (BMI 30-39.9) Insomnia Melanoma (~10/2018) Vision disorder Chicken pox Diverticular disease Coronary artery disease (~2004) Surgical History Hx of tonsillectomy H/O hernia repair S/P angioplasty Ankle pain (~2009) Colon polyps Family History Father No problems noted. Mother No problems noted. Sister No problems noted. Social History marital status: household members: spouse lives independently: Yes occupational status: previously employed Smoking Status: Never smoker alcohol intake: current substance use type: does not use Smoking Status: Never smoker alcohol intake frequency: 0-2 drinks per day Exam Narrative Exam Narrative: GEN: well nourished, well appearing male, alert and oriented x 3, patient appears to be in mild distress. HEENT: Atraumatic, pupils are equal round reactive to light, extraocular movements are intact, nares are clear, TMs are clear with no fluid, there is no conjunctival pallor. Throat is clear without any exudates, erythema, tonsillar enlargement or uvular deviation, no facial droop. HEART: Regular rate and rhythm without murmur, clicks, rubs. No carotid bruits, pulses are equal in upper and lower extremities LUNGS:Lungs clear to auscultation, no wheezes, rales, crackles, chest moves symmetrically ABD:bowel sounds normal, soft, non-tender, no guarding, rebound, rigidity, no masses noted, no hepatosplenomegaly :No CVA tenderness MSCL: Non-tender, no muscle atrophy, muscles strength 5/5 upper and lower extremities, full range of motion, normal gait NEURO:CN 2-12 intact, sensation normal, reflexes 2/4 upper and lower extremities. finger nose finger test normal, heel james test normal, no dysarthria. Initial Vital Signs Initial Vital Signs: Vital Signs Temperature 98.1 F 01/17/25 08:49 Pulse Rate 68 01/17/25 08:49 Respiratory Rate 18 01/17/25 08:49 Blood Pressure 168/92 H 01/17/25 08:49 Pulse Oximetry 98 01/17/25 08:49 Oxygen Delivery Method Room Air 01/17/25 08:49 Scores NIH Stroke Scale Level of Conciousness: Alert, keenly responsive Ask month/age: Answers both questions correctly. Open/close eyes, close hand: Performs both tasks correctly Best gaze horizontal: Normal Visual rodarte: No visual loss Facial palsy: Normal symetrical movement Left arm drift: No drift for full 10 sec Right arm drift: No drift for full 10 sec Left leg drift: No drift for full 5 sec Right leg drift: No drift for full 5 sec Limb ataxia: Absent Sensory on face/arms/legs: Normal, no sensory loss Best language: No aphasia, normal Dysarthria: Normal Extinction or inattention: No abnormality Total NIH Stroke scale score: 0 Course Orders Ordered: ED Orders 01/17/25 08:55 CT head/brain wo con Stat 01/17/25 08:56 CT angio head and neck Stat EKG-12 Lead Stat 01/17/25 09:00 Complete Blood Count AUTO DIFF Stat Comprehensive Metabolic Panel Stat Ethanol (ETOH) Stat PTT Partial Thromboplastin Maged Stat Prothrombin Time INR Stat Troponin & CK Cardiac Panel Stat 01/17/25 09:42 Ictotest Urine Stat Urinalysis and Microscopic Stat Urine Drug Screen, Rapid Stat Discontinued Medications Aspirin (Aspirin 81 Mg Chew Tab) 324 mg PO NOW ONE Stop: 01/17/25 10:16 Last Admin: 01/17/25 11:14 Dose: 324 mg Documented By: COOPER Clopidogrel Bisulfate (Clopidogrel 75 Mg Tablet) 75 mg PO NOW ONE Stop: 01/17/25 11:22 Last Admin: 01/17/25 11:35 Dose: 75 mg Documented By: COOPER Vital Signs Vital signs: Vital Signs - 8 hr 01/17/25 08:49 01/17/25 09:01 01/17/25 09:15 Temperature 98.1 F Pulse Rate 68 63 62 Pulse Rate [Orthostatic Lying] Pulse Rate [Orthostatic Sitting] Pulse Rate [Orthostatic Standing] Respiratory Rate 18 17 23 Blood Pressure 168/92 H Blood Pressure [Orthostatic Lying] Blood Pressure [Orthostatic Sitting] Blood Pressure [Orthostatic Standing] Pulse Oximetry 98 97 94 Oxygen Delivery Method Room Air 01/17/25 09:15 01/17/25 09:39 01/17/25 09:41 Temperature Pulse Rate 59 L Pulse Rate [Orthostatic Lying] Pulse Rate [Orthostatic Sitting] Pulse Rate [Orthostatic Standing] Respiratory Rate 14 15 Blood Pressure 119/73 Blood Pressure [Orthostatic Lying] Blood Pressure [Orthostatic Sitting] Blood Pressure [Orthostatic Standing] Pulse Oximetry 92 96 Oxygen Delivery Method 01/17/25 09:41 01/17/25 09:46 01/17/25 09:46 Temperature Pulse Rate 55 L Pulse Rate [Orthostatic Lying] Pulse Rate [Orthostatic Sitting] Pulse Rate [Orthostatic Standing] Respiratory Rate 15 Blood Pressure 151/73 H 129/65 Blood Pressure [Orthostatic Lying] Blood Pressure [Orthostatic Sitting] Blood Pressure [Orthostatic Standing] Pulse Oximetry 97 Oxygen Delivery Method 01/17/25 10:00 01/17/25 10:00 01/17/25 10:15 Temperature Pulse Rate 56 L 55 L Pulse Rate [Orthostatic Lying] Pulse Rate [Orthostatic Sitting] Pulse Rate [Orthostatic Standing] Respiratory Rate 18 16 Blood Pressure 134/66 Blood Pressure [Orthostatic Lying] Blood Pressure [Orthostatic Sitting] Blood Pressure [Orthostatic Standing] Pulse Oximetry 97 96 Oxygen Delivery Method 01/17/25 10:15 01/17/25 10:30 01/17/25 10:31 Temperature Pulse Rate 57 L 56 L Pulse Rate [Orthostatic Lying] Pulse Rate [Orthostatic Sitting] Pulse Rate [Orthostatic Standing] Respiratory Rate 19 18 Blood Pressure 127/72 Blood Pressure [Orthostatic Lying] Blood Pressure [Orthostatic Sitting] Blood Pressure [Orthostatic Standing] Pulse Oximetry 98 96 Oxygen Delivery Method 01/17/25 10:31 01/17/25 10:45 01/17/25 10:45 Temperature Pulse Rate 54 L Pulse Rate [Orthostatic Lying] Pulse Rate [Orthostatic Sitting] Pulse Rate [Orthostatic Standing] Respiratory Rate 17 Blood Pressure 156/78 H 122/82 Blood Pressure [Orthostatic Lying] Blood Pressure [Orthostatic Sitting] Blood Pressure [Orthostatic Standing] Pulse Oximetry 96 Oxygen Delivery Method 01/17/25 11:00 01/17/25 11:01 01/17/25 11:01 Temperature Pulse Rate 51 L 50 L Pulse Rate [Orthostatic Lying] Pulse Rate [Orthostatic Sitting] Pulse Rate [Orthostatic Standing] Respiratory Rate 13 16 Blood Pressure 157/85 H Blood Pressure [Orthostatic Lying] Blood Pressure [Orthostatic Sitting] Blood Pressure [Orthostatic Standing] Pulse Oximetry 94 95 Oxygen Delivery Method 01/17/25 11:04 01/17/25 11:04 01/17/25 11:06 Temperature Pulse Rate 66 61 Pulse Rate [Orthostatic Lying] Pulse Rate [Orthostatic Sitting] Pulse Rate [Orthostatic Standing] Respiratory Rate 27 H 19 Blood Pressure 150/81 H Blood Pressure [Orthostatic Lying] Blood Pressure [Orthostatic Sitting] Blood Pressure [Orthostatic Standing] Pulse Oximetry 97 97 Oxygen Delivery Method 01/17/25 11:06 01/17/25 11:08 01/17/25 11:08 Temperature Pulse Rate 64 Pulse Rate [Orthostatic Lying] Pulse Rate [Orthostatic Sitting] Pulse Rate [Orthostatic Standing] Respiratory Rate 31 H Blood Pressure 143/68 H 141/70 H Blood Pressure [Orthostatic Lying] Blood Pressure [Orthostatic Sitting] Blood Pressure [Orthostatic Standing] Pulse Oximetry 97 Oxygen Delivery Method 01/17/25 11:09 01/17/25 11:16 01/17/25 11:16 Temperature Pulse Rate 57 L Pulse Rate [Orthostatic Lying] 56 L Pulse Rate [Orthostatic Sitting] 63 Pulse Rate [Orthostatic Standing] 67 Respiratory Rate 20 Blood Pressure 135/74 Blood Pressure [Orthostatic Lying] 150/81 H Blood Pressure [Orthostatic Sitting] 143/68 H Blood Pressure [Orthostatic Standing] 141/70 H Pulse Oximetry 98 Oxygen Delivery Method Medical Decision Making Lab Data 01/17/25 09:00 01/17/25 09:00 Labs: Lab Results 01/17/25 01/17/25 01/17/25 Range/Units 09:00 09:42 09:42 WBC 7.7 (4.5-11.0) X10^3/uL RBC 5.51 (4.5-5.9) X10^6/uL Hgb 16.0 (13.5-17.5) g/dL Hct 47.6 (41-53) % MCV 86.4 (80-100) fL MCH 29.0 (26-34) PG MCHC 33.6 (30-36) % RDW 15.7 H (11.6-14.8) % Plt Count 152 (150-400) X10^3/uL Neut % (Auto) 80.9 H (50-75) % Lymph % (Auto) 10.9 L (25-40) % Simpson % (Auto) 6.5 (3-14) % Eos % (Auto) 1.2 L (2-4) % Baso % (Auto) 0.5 (0-2) % Neut # (Auto) 6200 (8913-0232) /uL Lymph # (Auto) 800 L (3973-8663) /uL Simpson # (Auto) 500 (0-900) /uL Eos # (Auto) 100 (0-450) /uL Baso # (Auto) 0 (0-100) /uL PT 12.4 (9.4-12.5) SECONDS INR 1.1 (0.9-1.3) APTT 35 (25.1-36.5) SECONDS Sodium 140 (137-145) mmol/L Potassium 3.6 (3.4-5.1) mmol/L Chloride 109 H (98-107) mmol/L Carbon Dioxide 20 L (22-32) mmol/L BUN 15 (9-20) mg/dL Creatinine 0.92 (0.66-1.25) mg/dL Estimated GFR > 60 (>60) mL/min BUN/Creatinine Ratio 16.3 (6-22) Glucose 115 H (80-110) mg/dL Calcium 9.8 (8.4-10.2) mg/dL Total Bilirubin 1.9 H (0.2-1.3) mg/dL AST 24 (17-59) IU/L ALT 20 (<50) IU/L Alkaline Phosphatase 96 (38-126) U/L Total Creatine Kinase 38 L (55-170) U/L Troponin I < 0.012 (0.01-0.034) ng/mL Total Protein 7.0 (6.3-8.2) g/dL Albumin 4.6 (3.5-5.0) g/dL Globulin 2.4 (1.7-4.1) g/dL Albumin/Globulin Ratio 1.9 (1.0-2.8) Urine Color Yellow Urine Appearance Clear Urine pH 5.5 Normal (4.5-8.0) Ur Specific [place] >=1.030 H (1.000-1.035) Urine Protein Trace H (Negative) Urine Glucose (UA) Negative (Negative) g/dL Urine Ketones Negative (NEGATIVE) Urine Occult Blood Negative (Negative) Urine Nitrate Negative (Negative) Urine Bilirubin 1+ H (NEGATIVE) Ur Bilirubin Confirm Negative (Negative) Urine Urobilinogen 0.2 (0.2) E.U./dL Ur Leukocyte Esterase Negative (NEGATIVE) Urine RBC None seen (0-5/HPF) Urine WBC None seen (0-5/HPF) Ur Squamous Epith Cells 0-1 /hpf (0-5/HPF) Urine Bacteria None seen (None) Urine Mucus 1+ H (Negative) Ur Culture Indicated? Cult not indicated Vol Urine Centrifuged 10ml (spun) U Opiates 300ng/mL cut Negative (Negative) Ur Oxycodone Screen Negative (Negative) Urine Methadone Screen Negative (Negative) Ur Barbiturates Screen Negative (Negative) U Tricyclic Antidepress Negative (Negative) Ur Phencyclidine Scrn Negative (Negative) Ur Amphetamines Screen Negative (Negative) U Methamphetamines Scrn Negative (Negative) Ur MDMA Scrn (Ecstasy) Negative (Negative) U Benzodiazepines Scrn Negative (Negative) Urine Cocaine Screen Negative (Negative) U Marijuana (THC) Screen Positive H (Negative) Urine Specific [place] Normal (Normal) Ethyl Alcohol < 10 ( - 10) mg/dL Ur Creatinine Normal (Normal) Point of Care Testing Glucose POC 107 Point of care testing: Point of Care Testing Glucose POC 107 ECG Data Attestation: I personally reviewed and interpreted this ECG as follows: Interpretation: Sinus rhythm rate of 61 [place] 148 QRS of 92 QTC of 428, no acute ST elevation T- waves inverted in lateral leads V1 through V6. Patient has prior from 08/06/2022 shows sinus rhythm has some nonspecific change. MDM Narrative Medical decision making narrative: 74-year-old male with complaint of weakness confusion possibly some expressive aphasia has been intermittent with the episodes of month ago, 3 episodes yesterday and episode early this morning. Patient's NIH is 0 still occasionally has some word-finding but passes his exam without issue. Would not be a candidate for TNK. EKG shows sinus rhythm Labs show normal white count, hemoglobin and platelets of 152 patient has had thrombocytopenia in the past. Coags are negative, chloride 109 CO2 is 20 sodium and potassium are normal, BUN and creatinine are appropriate glucose is 115 calcium is 9.8 bilirubin is 1.9 AST ALT normal with a alk-phos of 38. Troponins less than 0.012. Urine shows trace protein 1+ bilirubin +mucus. UDS positive for marijuana negative for alcohol. Head CT shows no acute change CT head and neck angio shows no significant intracranial abnormalities of the head or neck submucosal mass upper thoracic esophagus to the right of midline moderate centrilobular emphysema recommend nonemergent upper endoscopy. Patient given aspirin 324mg. Spoke with patient he had upper endoscopy in the past year but discussed should have repeat regarding possible submucosal mass upper thoracic esophagus. Discussed with hospitalist Dr. Daniel, he did review chart was reviewed he notes patient has a MR in the past month has had echo recently, has had risk factors and workup already performed as an outpatient recently. Asked for orthostatics if negative discharge home on dual antiplatelet with aspirin 81 mg continuing daily and Plavix 75 mg x 21 days. If positive to re-contact. Orthostatics patient has a 10 point change in blood pressure as his only change. Heart rate dropped. Discussed with the patient he prefers to return home we will have dual antiplatelet we will give 1st dose here. Patient has had issues with anemia in the past when he was on Plavix and follows regularly with Hematology. He was follow up with Dr. Bergman next Friday, a week from now. He has outpatient labs to be drawn tomorrow. Discussed risks versus benefits with the patient we will have him follow up shortly with Oncology and primary care with close monitoring but feel the risks outweigh benefits at this time. Also reviewed patient's CT imaging changes he had upper endoscopy in November in his actually scheduled to have a repeat in May. Discussed to follow up with his physician regarding that report see if it needs to be moved up earlier. Also spoke with Dr. Suarez patients primary care physician to help facilitate follow up. Spoke with Dr. Weinstein, few patient's findings from today follow up plan to initiate dual antiplatelet. She will have office reach out to get him in shortly. Discharge Plan Departure Patient Disposition: Home Clinical Impression: TIA (transient ischemic attack), Subepithelial esophageal mass Activity Restrictions/Additional Instructions: Follow up with your physician and your import manager for rechecked. I suspect you maybe having TIA events although the majority of your workups already occurred. Your imaging incidentally found what appears to be a submucosal mass of the upper thoracic esophagus that is about 2.2 x 1. 8 x 1.8 cm I recommend follow up for upper endoscopy if you have not had one in the last several months. This time it is recommended you continue your aspirin 81 mg daily And then add Plavix 75 mg daily times 21 days. Prescription was sent to [facility] in [place] Please return for recurrent episodes, severe headaches, new numbness tingling or weakness, facial droop, difficulty with speech, passing out, new chest pain or shortness of breath or other new or concerning changes. Prescriptions: New clopidogrel [Plavix] 75 mg tablet 75 mg PO DAILY Qty: 20 0RF No Action cetirizine [Zyrtec] 10 mg tablet 10 mg PO DAILY PRN (Reason: Allergy Symptoms) nitroglycerin 0.4 mg tablet, sublingual 0.4 mg sublingual Q5-15M PRN (Reason: Chest Pain) Rx Instructions: do not exceed 3 doses per episode aspirin [Adult Low Dose Aspirin] 81 mg tablet,delayed release (DR/EC) 81 mg PO DAILY atorvastatin 40 mg tablet 40 mg PO BEDTIME Qty: 90 3RF fluoxetine 20 mg capsule 20 mg PO DAILY Qty: 90 0RF hydrocodone-acetaminophen 5-325 mg tablet 1 tab PO Q8H PRN (Reason: pain) Qty: 15 0RF ranolazine 500 mg tablet extended release 12 hr 500 mg PO BID ondansetron 4 mg tablet,disintegrating 4 mg PO TID PRN (Reason: nausea and vomiting) Qty: 30 1RF lisinopril 5 mg tablet 5 mg PO DAILY Qty: 90 1RF isosorbide dinitrate 20 mg tablet 20 mg PO BID Qty: 180 1RF pantoprazole 40 mg tablet,delayed release (DR/EC) 40 mg PO DAILY Stiolto Respimat 2.5-2.5 mcg/actuation mist 2 puff inhalation DAILY Qty: 4 3RF multivitamin Tablet 1 tab PO DAILY albuterol sulfate [Ventolin HFA] 90 mcg/actuation HFA aerosol inhaler 2 puff inhalation Q6H PRN (Reason: shortness of breath or wheezing) Qty: 6.7 11RF Referrals: Kathryn Weinstein DO [Primary Care Provider] - Stand Alone Forms: Patient Portal/API/Survey
[2025-01-17 09:08] LABS: Add Manual Diff / Slide Review NO; Basophils Absolute Auto 0 /uL (0-100); Basophils Percent Auto 0.5 % (0-2); Eosinophils Absolute Auto 100 /uL (0-450); Eosinophils Percent Auto 1.2 % (2-4); Hematocrit 47.6 % (41-53); Lymphocytes Absolute Auto 800 /uL (1100-4500); Lymphocytes Percent Auto 10.9 % (25-40); Mean Corpuscular HGB Conc 33.6 % (30-36); Mean Corpuscular Volume 86.4 fL (80-100); Monocytes Absolute Auto 500 /uL (0-900); Monocytes Percent Auto 6.5 % (3-14); Neutrophils Absolute Auto 6200 /uL (1500-7000); Neutrophils Percent Auto 80.9 % (50-75); Platelet Count 152 X10^3/uL (150-400); Red Blood Cell Count 5.51 X10^6/uL (4.5-5.9); Red Cell Distribution Width 15.7 % (11.6-14.8); White Blood Cell Count 7.7 X10^3/uL (4.5-11.0)
[2025-01-17 09:15] LABS: INR 1.1 (0.9-1.3); Prothrombin Time 12.4 SECONDS (9.4-12.5)
[2025-01-17 09:17] LABS: PTT Partial Thromboplastin Tim 35 SECONDS (25.1-36.5)
[2025-01-17 09:19] LABS: Alanine Aminotransferase 20 IU/L (<50); Albumin 4.6 g/dL (3.5-5.0); Albumin Globulin Ratio 1.9 (1.0-2.8); Alkaline Phosphatase 96 U/L (38-126); Aspartate Aminotransferase 24 IU/L (17-59); BUN Creatinine Ratio 16.3 (6-22); Bilirubin Total 1.9 mg/dL (0.2-1.3); Blood Urea Nitrogen 15 mg/dL (9-20); Calcium 9.8 mg/dL (8.4-10.2); Carbon Dioxide 20 mmol/L (22-32); Chloride 109 mmol/L (98-107); Creatine Kinase 38 U/L (55-170); Estimated Glomerular Filt Rate > 60 mL/min (>60); Ethanol (ETOH) < 10 mg/dL; Globulin 2.4 g/dL (1.7-4.1); Glucose 115 mg/dL (80-110); HEMOLYSIS 16 (0-50); Potassium 3.6 mmol/L (3.4-5.1); Sodium 140 mmol/L (137-145)
[2025-01-17 09:30] LABS: Troponin I < 0.012 ng/mL (0.01-0.034)
[2025-01-17 09:47] LABS: Appearance Urine UA CLEAR; Bilirubin Urine UA 1+ (NEGATIVE); Color Urine UA YELLOW; Glucose Urine UA NEGATIVE (Negative); Ketones Urine UA NEGATIVE (NEGATIVE); Leukocyte Esterase Urine UA NEGATIVE (NEGATIVE); Nitrite Urine UA NEGATIVE (Negative); Occult Blood Urine UA NEGATIVE (Negative); Protein Urine UA TRACE (Negative); Specific Gravity Urine UA >=1.030 (1.000-1.035); Urobilinogen Urine UA 0.2 E.U./dL (0.2); pH Urine UA 5.5 (4.5-8.0)
[2025-01-17 09:50] LABS: Ictotest Urine Negative (Negative)
[2025-01-17 09:51] LABS: Urine Volume 10mL (spun)
[2025-01-17 09:52] LABS: Bacteria Urine None Seen; Culture Indicated Urine Cult Not Indicated; Mucus Urine 1+ (Negative); RBC Urine None Seen (0-5/HPF); Squamous Epithelial Cell Urine 0-1 /HPF (0-5/HPF); Ur Creatinine Normal (Normal); Ur Specific Gravity Normal (Normal); Urine pH Normal (Normal); WBC Urine None Seen (0-5/HPF)
[2025-01-17 09:53] LABS: Urine Amphetamines Negative (Negative); Urine Barbiturates Negative (Negative); Urine Benzodiazepines Negative (Negative); Urine Cocaine Negative (Negative); Urine MDMA Negative (Negative); Urine Methadone Negative (Negative); Urine Methamphetamines Negative (Negative); Urine Opiates Negative (Negative); Urine Oxycodone Negative (Negative); Urine Phencyclidine Negative (Negative); Urine THC Positive (Negative); Urine Tricyclic Antidepressant Negative (Negative)
--- NOTE | 2025-01-17 10:39 | PM.CALLCOV.1 ---
Call Coverage Note Note Date of Patient Contact: 01/17/25 Narrative of Care Provided: 74 M with extensive cardiac history presenting with episodes of aphasia, medicine asked to evaluate for admission for possible TIA. He had similar episode approximately a month ago, had negative MRI at that time and prior TTE from [facility] hospitalization shows no PFO in 2021. If patient's orthostatic vitals are positive, can admit for further therapy and orthostasis symptoms. However, given chronicity of symptoms and reassuring evaluation in the emergency room with no fever, leukocytosis, or significant biochemical abnormalities patient can be discharged home if orthostatics are negative. He also has had a recent stroke workup with MRI approximately a month ago and has had outpatient PT which is continued for his hip. Recommend addition of plavix for 21 days for possible TIA.
[2025-01-17] MEDS: ASPIRIN 81 MG CHEW TAB 324 MG PO (11:14)
[2025-01-17] MEDS: CLOPIDOGREL 75 MG TABLET PO (11:35)
== END 2025-01-17 11:41 | disposition home or self-care (01) ==
PROVIDERS: Emergency Provider Emergency Medicine; PCP Family Medicine
DX: G45.9 Transient cerebral ischemic attack, unspecified (principal); K22.89 Other specified disease of esophagus; I10 Essential (primary) hypertension
CPT/HCPCS: 36415; 70450; 70496; 70498; 80053; 80305; 80320; 81001; 82550; 82962; 84484; 85025; 85610; 85730; 93005; 93010; 99284; 99285; Q9967

== ENCOUNTER 2025-01-19 08:58 | Emergency (ER) | payer MEDICARE, OTHER, SELFPAY ==
[2025-01-19 09:03] VITALS: O2SAT 98
[2025-01-19 09:04] VITALS: BP 149/85; PULSE 59; O2SAT 98
--- NOTE | 2025-01-19 09:07 | ED_ITS ---
HPI - Neuro Symptoms/Deficit General Chief Complaint: Neuro Symptoms/Deficit Stated Complaint: Possible Stroke Time Seen by Provider: 01/19/25 09:02 History of Present Illness HPI Narrative: 74-year-old male past medical history of hypertension, CAD, GERD, hyperlipidemia, COPD not requiring supplemental oxygen at baseline presents to the emergency department from home for evaluation of possible stroke-like symptoms. According to the patient as well as the he has been having these sensations on and off for approximately 1 month. States that he has been having headaches as well as numbness/tingling sensation to the right side of his face, according to the patient and they were just seen here recently for the same, has also followed up with their primary care doctor and had an MRI that did not show any acute findings. Patient was told that everything was normal in regards to his imaging and was started on aspirin Plavix high-dose statin. Has been compliant with all of these. He states that approximately 30 minutes ago he started feeling a right facial droop that has resolved. Here upon immediate evaluation patient with a NIH of 1 due to decreased sensation/numbness to the right side of the face. Stroke alert was called immediately. He is not complaining of any other symptoms at this time. Related Data Home Medications Medication Instructions Recorded Confirmed aspirin 81 mg tablet,delayed 81 mg PO DAILY 09/03/21 12/16/24 release (Adult Low Dose Aspirin) cetirizine 10 mg tablet (Zyrtec) 10 mg PO DAILY PRN Allergy Symptoms 12/03/21 12/16/24 nitroglycerin 0.4 mg sublingual 0.4 mg sublingual Q5-15M PRN Chest 12/03/21 12/16/24 tablet Pain multivitamin 1 tab PO DAILY 11/28/22 12/16/24 ranolazine 500 mg tablet,extended 500 mg PO BID 08/04/23 12/16/24 release,12 hr pantoprazole 40 mg tablet,delayed 40 mg PO DAILY 12/08/24 12/16/24 release Previous Rx's Medication Instructions Recorded atorvastatin 40 mg tablet 40 mg PO BEDTIME #90 tabs 02/02/21 isosorbide dinitrate 20 mg tablet 20 mg PO BID #180 tabs 12/08/23 lisinopril 5 mg tablet 5 mg PO DAILY #90 tabs 12/08/23 ondansetron 4 mg disintegrating 4 mg PO TID PRN nausea and 12/08/23 tablet vomiting #30 tabs albuterol sulfate 90 mcg/actuation 2 puff inhalation Q6H PRN 01/23/24 aerosol inhaler (Ventolin HFA) shortness of breath or wheezing #6.7 grams hydrocodone 5 mg-acetaminophen 325 1 tab PO Q8H PRN pain #15 tabs 04/22/24 mg tablet tiotropium 2.5 mcg-olodaterol 2.5 2 puff inhalation DAILY #4 grams 12/08/24 mcg/actuation mist for inhalation (Stiolto Respimat) fluoxetine 20 mg capsule 20 mg PO DAILY #90 caps 01/05/25 clopidogrel 75 mg tablet (Plavix) 75 mg PO DAILY #20 tabs 01/17/25 Allergies Allergy/AdvReac Type Severity Reaction Status Date / Time No Known Drug Allergies Allergy Verified 12/16/24 07:24 Review of Systems Review of Systems Narrative: General: Denies fever, chills, weight loss HEENT: Denies headache, eye drainage, eye irritation, head trauma, sore throat, voice change Cardiovascular: Denies any chest pain, palpitations, tachycardia Respiratory: Denies any shortness of breath, cough, wheeze, stridor GI/: Denies any abdominal pain, nausea, vomiting, diarrhea, bright red blood per rectum, melanotic stools, urinary frequency, urinary retention, dysuria, hematuria MSK: Denies any joint pain, muscle pains, swelling Skin: Denies any rashes, lesions, discoloration Neuro: Positive headache, right facial droop/numbness/tingling, Denies any lightheadedness, dizziness, fainting, weakness Psych: Denies SI/HI Patient History Medical History Fatigue Hiatal hernia Iron deficiency anemia Lumbar spinal stenosis Obesity (BMI 30-39.9) Insomnia Melanoma (~10/2018) Vision disorder Chicken pox Diverticular disease Coronary artery disease (~2004) Surgical History Hx of tonsillectomy H/O hernia repair S/P angioplasty Ankle pain (~2009) Colon polyps Family History Father No problems noted. Mother No problems noted. Sister No problems noted. Social History marital status: household members: spouse lives independently: Yes occupational status: previously employed alcohol intake: current substance use type: does not use alcohol intake frequency: 0-2 drinks per day Exam Narrative Exam Narrative: General: Cooperative, well-developed, not in acute distress HEENT: Normocephalic, atraumatic, PERRLA, normal sclera, eyelids normal Neck: Active full range of motion, atraumatic Chest: Normal to inspection, negative crepitus, no overlying erythema ecchymosis Respiratory: Normal respiratory effort, not in acute respiratory distress, clear to auscultation bilaterally negative cough, wheeze, tachypnea, rhonchi, rales Cardiology: Regular rate rhythm negative gallop, murmur, rubs GI/: No tenderness to palpation, soft, non rigid, normal to inspection, exam deferred MSK: Full active range of motion in all 4 extremities, atraumatic, no tenderness to palpation of any bony prominences Skin: No rashes or lesions noted Neuro: NIH of 1 for decreased sensation to the right face, Alert awake oriented x3, moves all 4 extremities spontaneously, cranial nerves intact, able to answer all questions appropriately follows commands appropriately Psych: Cooperative, negative suicidal or homicidal ideations Initial Vital Signs Initial Vital Signs: Vital Signs Pulse Oximetry 98 01/19/25 09:03 Scores NIH Stroke Scale Level of Conciousness: Alert, keenly responsive Ask month/age: Answers both questions correctly. Open/close eyes, close hand: Performs both tasks correctly Best gaze horizontal: Normal Visual rodarte: No visual loss Facial palsy: Normal symetrical movement Left arm drift: No drift for full 10 sec Right arm drift: No drift for full 10 sec Left leg drift: No drift for full 5 sec Right leg drift: No drift for full 5 sec Limb ataxia: Absent Sensory on face/arms/legs: Mild to moderate sensory loss, can tell touch (Decreased sensation to right side of face ) Best language: No aphasia, normal Dysarthria: Normal Extinction or inattention: No abnormality Total NIH Stroke scale score: 1 Course Orders Ordered: ED Orders 01/19/25 09:[address] angio head and neck Stat Complete Blood Count AUTO DIFF Stat Comprehensive Metabolic Panel Stat Ethanol (ETOH) Stat PTT Partial Thromboplastin Maged Stat Prothrombin Time INR Stat Troponin & CK Cardiac Panel Stat Urine Drug Screen, Rapid Stat EKG-12 Lead Stat 01/19/25 09:09 CXR [XR chest 1V] Stat Discontinued Medications Lorazepam (Lorazepam 2 Mg/Ml Inj) 0.5 mg IV NOW ONE Stop: 01/19/25 09:10 Last Admin: 01/19/25 09:22 Dose: 0.5 mg Documented By: CTS Vital Signs Vital signs: Vital Signs - 8 hr 01/19/25 09:03 01/19/25 09:04 01/19/25 09:04 Temperature Pulse Rate 59 L Respiratory Rate Blood Pressure 149/85 H Pulse Oximetry 98 98 Oxygen Delivery Method 01/19/25 09:08 01/19/25 09:25 01/19/25 09:25 Temperature 97.8 F Pulse Rate 63 55 L Respiratory Rate 24 15 Blood Pressure 149/85 H 159/74 H Pulse Oximetry 98 99 Oxygen Delivery Method Room Air 01/19/25 09:30 01/19/25 09:30 01/19/25 10:00 Temperature Pulse Rate 59 L 55 L Respiratory Rate 16 16 Blood Pressure 130/74 Pulse Oximetry 92 91 Oxygen Delivery Method 01/19/25 10:00 Temperature Pulse Rate Respiratory Rate Blood Pressure 118/76 Pulse Oximetry Oxygen Delivery Method MDM - Neuro Symptoms/Deficit Lab Data 01/19/25 09:08 01/19/25 09:08 Labs: Lab Results 01/19/25 Range/Units 09:08 WBC 7.5 (4.5-11.0) X10^3/uL RBC 5.57 (4.5-5.9) X10^6/uL Hgb 16.1 (13.5-17.5) g/dL Hct 48.1 (41-53) % MCV 86.4 (80-100) fL MCH 28.9 (26-34) PG MCHC 33.5 (30-36) % RDW 16.0 H (11.6-14.8) % Plt Count 172 (150-400) X10^3/uL Neut % (Auto) 75.9 H (50-75) % Lymph % (Auto) 13.2 L (25-40) % Pine % (Auto) 7.8 (3-14) % Eos % (Auto) 2.3 (2-4) % Baso % (Auto) 0.8 (0-2) % Neut # (Auto) 5700 (2715-1412) /uL Lymph # (Auto) 1000 L (8564-4247) /uL Pine # (Auto) 600 (0-900) /uL Eos # (Auto) 200 (0-450) /uL Baso # (Auto) 100 (0-100) /uL PT 12.2 (9.4-12.5) SECONDS INR 1.1 (0.9-1.3) APTT 33 (25.1-36.5) SECONDS Sodium 141 (137-145) mmol/L Potassium 3.6 (3.4-5.1) mmol/L Chloride 106 (98-107) mmol/L Carbon Dioxide 25 (22-32) mmol/L BUN 15 (9-20) mg/dL Creatinine 1.11 (0.66-1.25) mg/dL Estimated GFR > 60 (>60) mL/min BUN/Creatinine Ratio 13.5 (6-22) Glucose 112 H (80-110) mg/dL Calcium 10.1 (8.4-10.2) mg/dL Total Bilirubin 1.5 H (0.2-1.3) mg/dL AST 24 (17-59) IU/L ALT 20 (<50) IU/L Alkaline Phosphatase 90 (38-126) U/L Total Creatine Kinase 35 L (55-170) U/L Troponin I < 0.012 (0.01-0.034) ng/mL Total Protein 7.2 (6.3-8.2) g/dL Albumin 4.7 (3.5-5.0) g/dL Globulin 2.5 (1.7-4.1) g/dL Albumin/Globulin Ratio 1.9 (1.0-2.8) Ethyl Alcohol < 10 ( - 10) mg/dL Point of Care Testing Glucose POC 106 Imaging Data Chest x-ray: Radiologist's Impression: [address] [address] XRay Report Signed Patient: Sharif Manning MR#: [id number] : 1950 Acct:[id number] Age/Sex: 74 / M Date of Service: 01/19/25 Loc: ED Accession Number: [id number] Procedure: XR chest 1V Ordering Provider: Cristino Camejo D.O. PROCEDURE: XR CHEST 1V INDICATIONS: stroke alert TECHNIQUE: One view of the chest was acquired. COMPARISON: [facility], CR, XR CHEST 2V, 10/04/2024, 14:36. FINDINGS: Surgical changes and devices: None. Lungs and pleura: Diffuse interstitial prominence. No pleural effusions or pneumothorax. Mediastinum: Mediastinal contours appear normal. Cardiomegaly. Moderate hiatal hernia. Bones and chest wall: No suspicious bony lesions. Overlying soft tissues appear unremarkable. IMPRESSION: Cardiomegaly, moderate hiatal hernia, diffuse interstitial prominence. CT scan - head: Radiologist's Impression: [place] [address] CT Scan Report Signed Patient: Sharif Manning MR#: [id number] : 1950 Acct:[id number] Age/Sex: 74 / M Date of Service: 01/19/25 Loc: ED Accession Number: [id number] Procedure: CT Stroke Ordering Provider: Cristino Camejo D.O. PROCEDURE: CT STROKE INDICATIONS: right facial numbness TECHNIQUE: Noncontrast 4.5 mm thick angled axial sections acquired from the foramen magnum to the vertex, with coronal reformats. For radiation dose reduction, the following was used: automated exposure control, adjustment of mA and/or kV according to patient size. COMPARISON: None. FINDINGS: Image quality: Diagnostic. CSF spaces: Basal cisterns are patent. No extra-axial fluid collections. The ventricles are symmetric in size and shape. Brain: No intracranial bleeds or masses. There is cerebral volume loss for age, with resultant ventricular and sulcal prominence. There are periventricular and deep white matter chronic small vessel ischemic changes. There is intracranial internal carotid artery atherosclerosis. Skull and face: Calvarium and visualized facial bones appear intact, without suspicious lesions. Sinuses: Visualized sinuses and mastoids are clear. IMPRESSION: No acute intracranial pathology. Comment: Findings were discussed with Dr. Salazar on 01/19/2025 at 0922 hours This study fulfills neurological imaging criteria for inclusion or exclusion of acute stroke therapies based on available published neurological guidelines. CTA - brain/neck: Radiologist's Impression: [address] [address] [address] Scan Report Signed Patient: Sharif Manning MR#: [id number] : 1950 Acct:[id number] Age/Sex: 74 / M Date of Service: 01/19/25 Loc: ED Accession Number: [id number] Procedure: CT angio head and neck Ordering Provider: Cristino Camejo D.O. PROCEDURE: CT ANGIO HEAD AND NECK INDICATIONS: right facial numbness TECHNIQUE: After the administration of intravenous contrast, 1 mm thick sections acquired from the aortic arch through the [place]. 3-dimensional kvuiltw-dalfabzks-ysvmovbozx (MIP) and/or volume rendering reformats were acquired of the central intracranial vasculature and neck separately. For radiation dose reduction, the following was used: automated exposure control, adjustment of mA and/or kV according to patient size. COMPARISON: [facility], CT, CT ANGIO HEAD AND NECK, 01/17/2025, 9:31. FINDINGS: Image quality: Diagnostic. BRAIN: CSF spaces: Ventricles are normal in size and shape. Basal cisterns are patent. No extra-axial fluid collections. Brain: No significant abnormality of the brain can be seen. Skull and face: Calvarium and facial bones appear intact, without suspicious lesions. Orbits appear normal. Sinuses: Sinuses and mastoids are clear. HEAD CT ANGIOGRAPHY: Anterior circulation: Intracranial internal carotid arteries are normal in size and flow. The flow within the paired anterior cerebral arteries is normal and symmetric. The flow within the middle cerebral arteries is normal and symmetric. The anterior communicating artery is seen. No aneurysms are seen. Posterior circulation: Visualized portions of the vertebral arteries demonstrate normal caliber, and join to form a normal appearing basilar artery. Flow within the posterior cerebral arteries is normal and symmetric. No aneurysms are seen. NECK CT ANGIOGRAPHY: Carotid system: The great vessels demonstrate a conventional anatomy as they arise from the aortic arch. The origins of the common carotid arteries appear patent. The common carotid arteries demonstrate normal caliber and courses. The bifurcation regions are both widely patent. The internal carotid arteries demonstrate normal calibers and courses. Posterior circulation: The origins of the vertebral arteries both appear widely patent. The more superior extracranial portions of both vertebral arteries also demonstrate normal courses and calibers. They join to form a normal appearing basilar artery. Soft tissues: Visualized neck soft tissues demonstrate no suspicious abnormalities. Again noted is a submucosal mass in the upper thoracic esophagus, to the right of midline. Moderate centrilobular emphysema. Bones: No suspicious bony lesions. Visualized cervical spine appears normally aligned. IMPRESSION: No significant intracranial arterial abnormality is seen. No significant abnormality is seen within the arteries of the neck. Submucosal mass, upper thoracic esophagus, to the right of midline. Moderate centrilobular emphysema. Comment: Recommend nonemergent upper endoscopy. ECG Data Interpretation: EKG interpreted ED physician sinus bradycardia 56 beats per minute QTC [address] changes no STEMI MDM Narrative Medical decision making narrative: 74-year-old male with a history of hypertension COPD not requiring supplemental oxygen at baseline, CAD, TIA, comes into the ED for evaluation of possible stroke-like symptoms. According to the patient as well as the patient's he has been having these symptoms intermittent and ongoing for the past month, has been seen here recently for similar symptoms, he states that he also had an outpatient MRI which was normal. States that he is on aspirin Plavix statin. He states that 30 minutes prior to arrival he felt like his right side of his face was drooping, however on evaluation patient without any facial droop, NIH of 1 secondary to decreased sensation to the right face, stroke alert was called immediately. Patient's lab work without any leukocytosis, troponin negative, EKG nonischemic in nature, CT head CTA head and neck without any acute intracranial abnormalities, chest x-ray without any acute cardiopulmonary abnormalities. Review of records does show patient had an MRI on 12/16/2024 that did not show any acute infarcts, intracranial bleed, midline shift or mass effect, patient also had CT head CTA head and neck on 01/17/2025 without any acute stroke mass bleed, however was found to have an incidental submucosal mass to the upper thoracic esophagus right of midline 1023: Patient re-evaluated, patient now calmer after administration of 0.5 mg Ativan, he states that all his symptoms have resolved, he has NIH of 0, his CT scan is unchanged from 2 days ago. He states that he does have an appointment with a caramel candy maker helper due to the fact that there discussion of possibly starting the patient on a blood thinner given his multiple episodes of possible TIAs however he has a history of anemia on blood thinners therefore they are currently only on dapt therapy. He also has an appointment with his primary care doctor next week. Patient feels comfortable going home following up with his scheduled primary care doctor and specialists. Patient was again informed of the incidental submucosal mass of the upper thoracic esophagus. He is not having any difficulty swallowing or breathing. He was given strict return precautions he verbalized understanding of this and agrees to being discharged home with outpatient follow up Discharge Plan Departure Patient Disposition: Home Clinical Impression: Right facial numbness Instructions: DI for Transient Ischemic Attack Activity Restrictions/Additional Instructions: Please follow up with the primary care doctor and your caramel candy maker helper for your scheduled appointments Please read the discharge instructions sheet carefully and bring all papers to all doctor follow-up visits, as it may contain information that your doctor may want to see. Disease processes change and evolve, if your symptoms worsen or if you develop any new symptoms that are concerning to you please return for evaluation. Your evaluation today does not show any evidence of any life- threatening/serious illnesses requiring admission to the hospital or surgery. Please follow-up with your doctor for re-evaluation in approximately 1 day. Seek immediate medical attention for any worrisome symptoms. *If you do not have a primary care provider please contact the [facility] Resource line at [phone]. They will ask some questions about your medical history and help get you set up with a doctor in the community. Prescriptions: No Action cetirizine [Zyrtec] 10 mg tablet 10 mg PO DAILY PRN (Reason: Allergy Symptoms) nitroglycerin 0.4 mg tablet, sublingual 0.4 mg sublingual Q5-15M PRN (Reason: Chest Pain) Rx Instructions: do not exceed 3 doses per episode aspirin [Adult Low Dose Aspirin] 81 mg tablet,delayed release (DR/EC) 81 mg PO DAILY atorvastatin 40 mg tablet 40 mg PO BEDTIME Qty: 90 3RF fluoxetine 20 mg capsule 20 mg PO DAILY Qty: 90 0RF hydrocodone-acetaminophen 5-325 mg tablet 1 tab PO Q8H PRN (Reason: pain) Qty: 15 0RF ranolazine 500 mg tablet extended release 12 hr 500 mg PO BID ondansetron 4 mg tablet,disintegrating 4 mg PO TID PRN (Reason: nausea and vomiting) Qty: 30 1RF lisinopril 5 mg tablet 5 mg PO DAILY Qty: 90 1RF isosorbide dinitrate 20 mg tablet 20 mg PO BID Qty: 180 1RF pantoprazole 40 mg tablet,delayed release (DR/EC) 40 mg PO DAILY Stiolto Respimat 2.5-2.5 mcg/actuation mist 2 puff inhalation DAILY Qty: 4 3RF clopidogrel [Plavix] 75 mg tablet 75 mg PO DAILY Qty: 20 0RF multivitamin Tablet 1 tab PO DAILY albuterol sulfate [Ventolin HFA] 90 mcg/actuation HFA aerosol inhaler 2 puff inhalation Q6H PRN (Reason: shortness of breath or wheezing) Qty: 6.7 11RF Referrals: Kathryn Weinstein DO [Primary Care Provider] - Stand Alone Forms: Patient Portal/API/Survey
[2025-01-19 09:08] VITALS: BP 149/85; PULSE 63; RESP 24; TEMP 36.6; O2SAT 98
--- NOTE | 2025-01-19 09:08 | EKG_ITS ---
[address] [address] Test Date: 2025-01-19 Pat Name: Sharif Manning Department: Room: Gender: Male Investor Relations Associate: SUSAN : 1950 Requested By: Order Number: [id number] Reading MD: Dashawn Howard MD Measurements Intervals [place] Rate: 56 P: 63 WI: 158 QRS: 8 QRSD: 90 T: 0 QT: 464 QTc: 447 Interpretive Statements Sinus bradycardia Low voltage QRS T wave abnormality, consider lateral ischemia Electronically Signed On 01-19-2025 11:03:14 PDT by Dashawn Howard MD
--- NOTE | 2025-01-19 09:09 | DI.RAD.S_ITS ---
PROCEDURE: XR CHEST 1V INDICATIONS: stroke alert TECHNIQUE: One view of the chest was acquired. COMPARISON: [facility], CR, XR CHEST 2V, 10/04/2024, 14:36. FINDINGS: Surgical changes and devices: None. Lungs and pleura: Diffuse interstitial prominence. No pleural effusions or pneumothorax. Mediastinum: Mediastinal contours appear normal. Cardiomegaly. Moderate hiatal hernia. Bones and chest wall: No suspicious bony lesions. Overlying soft tissues appear unremarkable. IMPRESSION: Cardiomegaly, moderate hiatal hernia, diffuse interstitial prominence. Dictated by: Kermit Farris M.D. on 01/19/2025 at 9:49 Approved by: Kermit Farris M.D. on 01/19/2025 at 9:50
[2025-01-19 09:16] LABS: Add Manual Diff / Slide Review NO; Basophils Absolute Auto 100 /uL (0-100); Basophils Percent Auto 0.8 % (0-2); Eosinophils Absolute Auto 200 /uL (0-450); Eosinophils Percent Auto 2.3 % (2-4); Hematocrit 48.1 % (41-53); Hemoglobin 16.1 g/dL (13.5-17.5); Lymphocytes Absolute Auto 1000 /uL (1100-4500); Lymphocytes Percent Auto 13.2 % (25-40); Mean Corpuscular HGB Conc 33.5 % (30-36); Mean Corpuscular Hemoglobin 28.9 PG (26-34); Mean Corpuscular Volume 86.4 fL (80-100); Monocytes Absolute Auto 600 /uL (0-900); Monocytes Percent Auto 7.8 % (3-14); Neutrophils Absolute Auto 5700 /uL (1500-7000); Neutrophils Percent Auto 75.9 % (50-75); Platelet Count 172 X10^3/uL (150-400); Red Blood Cell Count 5.57 X10^6/uL (4.5-5.9); White Blood Cell Count 7.5 X10^3/uL (4.5-11.0)
[2025-01-19] MEDS: LORazepam 2 MG/ML INJ 0.5 MG IV (09:22)
[2025-01-19 09:24] LABS: INR 1.1 (0.9-1.3); Prothrombin Time 12.2 SECONDS (9.4-12.5)
[2025-01-19 09:25] VITALS: BP 159/74; PULSE 55; RESP 15; O2SAT 99
[2025-01-19 09:26] LABS: PTT Partial Thromboplastin Tim 33 SECONDS (25.1-36.5)
[2025-01-19 09:27] LABS: Alanine Aminotransferase 20 IU/L (<50); Albumin 4.7 g/dL (3.5-5.0); Albumin Globulin Ratio 1.9 (1.0-2.8); Alkaline Phosphatase 90 U/L (38-126); Aspartate Aminotransferase 24 IU/L (17-59); BUN Creatinine Ratio 13.5 (6-22); Bilirubin Total 1.5 mg/dL (0.2-1.3); Blood Urea Nitrogen 15 mg/dL (9-20); Calcium 10.1 mg/dL (8.4-10.2); Carbon Dioxide 25 mmol/L (22-32); Chloride 106 mmol/L (98-107); Creatine Kinase 35 U/L (55-170); Estimated Glomerular Filt Rate > 60 mL/min (>60); Ethanol (ETOH) < 10 mg/dL; Globulin 2.5 g/dL (1.7-4.1); Glucose 112 mg/dL (80-110); HEMOLYSIS < 15 (0-50); Potassium 3.6 mmol/L (3.4-5.1); Sodium 141 mmol/L (137-145); Total Protein 7.2 g/dL (6.3-8.2)
[2025-01-19 09:30] VITALS: BP 130/74; PULSE 59; RESP 16; O2SAT 92
[2025-01-19 09:39] LABS: Troponin I < 0.012 ng/mL (0.01-0.034)
[2025-01-19 10:00] VITALS: BP 118/76; PULSE 55; RESP 16; O2SAT 91
== END 2025-01-19 10:50 | disposition home or self-care (01) ==
PROVIDERS: Emergency Provider Student in an Organized Health Care Education/Training Program; PCP Family Medicine
DX: R20.0 Anesthesia of skin (principal); R29.701 NIHSS score 1
CPT/HCPCS: 36415; 70450; 70496; 70498; 71045; 80053; 80320; 82550; 82962; 84484; 85025; 85610; 85730; 93005; 96374; 99284; J2060; Q9967

== ENCOUNTER 2025-04-07 17:04 | Inpatient (IN) | payer MEDICARE, OTHER, SELFPAY ==
[2025-04-07] VITALS (19 sets, daily range): BP systolic 100–150; BP diastolic 55–83; PULSE 62–81; RESP 11–23; TEMP 36.7; O2SAT 85–100; BMI 32.0
--- NOTE | 2025-04-07 17:14 | DI.CT.S_ITS ---
PROCEDURE: CT HEAD/BRAIN WO CON INDICATIONS: seizure TECHNIQUE: Noncontrast 4.5 mm thick angled axial sections acquired from the foramen magnum to the vertex, with coronal and sagittal reformats. For radiation dose reduction, the following was used: automated exposure control, adjustment of mA and/or kV according to patient size. COMPARISON: [facility], CT, CT HEAD/BRAIN WO CON, 01/17/2025, 9:31. [facility], CT, CT STROKE, 01/19/2025, 9:14. FINDINGS: Image quality: Diagnostic. CSF spaces: Basal cisterns are patent. No extra-axial fluid collections. The ventricles are symmetric in size and shape. Brain: No intracranial bleeds or mass effect. There is cerebral volume loss, with resultant ventricular and sulcal prominence. There are periventricular and deep white matter chronic small vessel ischemic changes. There is intracranial internal carotid artery atherosclerosis. Skull and face: Calvarium and visualized facial bones appear intact, without suspicious lesions. Sinuses: Visualized sinuses and mastoids are clear. IMPRESSION: No acute intracranial pathology. Dictated by: Huber Gaspar M.D. on 04/07/2025 at 17:36 Approved by: Huber Gaspar M.D. on 04/07/2025 at 17:37
--- NOTE | 2025-04-07 17:14 | EKG_ITS ---
[address] [address] Test Date: 2025-04-07 Pat Name: Sharif Manning Department: Room: Gender: Male Hospital Account Manager: RAYMOND : 1950 Requested By: Order Number: [id number] Reading MD: Dashawn Howard MD Measurements Intervals [place] Rate: 74 P: -22 RI: 188 QRS: -9 QRSD: 98 T: 3 QT: 464 QTc: 515 Interpretive Statements Normal sinus rhythm Low voltage QRS Nonspecific T wave abnormality Electronically Signed On 04-09-2025 7:53:39 PDT by Dashawn Howard MD
--- NOTE | 2025-04-07 17:14 | DI.RAD.S_ITS ---
PROCEDURE: XR CHEST 1V INDICATIONS: Chest Pain TECHNIQUE: One view of the chest was acquired. COMPARISON: [facility], CR, XR CHEST 1V, 01/19/2025, 9:05. [facility], CR, XR CHEST 2V, 10/04/2024, 14:36. FINDINGS: Surgical changes and devices: None. Lungs and pleura: Lungs are clear. No pleural effusions or pneumothorax. Mediastinum: Moderate hiatal hernia is redemonstrated. Mediastinal contours appear normal. Heart size is enlarged, stable. Bones and chest wall: No suspicious bony lesions. Overlying soft tissues appear unremarkable. IMPRESSION: No acute cardiopulmonary abnormality is seen. Dictated by: Huber Gaspar M.D. on 04/07/2025 at 17:37 Approved by: Huber Gaspar M.D. on 04/07/2025 at 17:38
[2025-04-07 17:24] LABS: Add Manual Diff / Slide Review NO; Hematocrit 50.2 % (41-53); Hemoglobin 16.5 g/dL (13.5-17.5); Lymphocytes Absolute Auto 1000 /uL (1100-4500); Mean Corpuscular HGB Conc 32.9 % (30-36); Mean Corpuscular Hemoglobin 28.9 PG (26-34); Mean Corpuscular Volume 87.8 fL (80-100); Platelet Count 157 X10^3/uL (150-400)
[2025-04-07 17:31] LABS: INR 1.0 (0.9-1.3); Prothrombin Time 11.4 SECONDS (9.4-12.5)
[2025-04-07 17:33] LABS: PTT Partial Thromboplastin Tim 32 SECONDS (25.1-36.5)
[2025-04-07 17:36] LABS: Alanine Aminotransferase 32 IU/L (<50); Albumin 4.7 g/dL (3.5-5.0); Albumin Globulin Ratio 1.7 (1.0-2.8); Alkaline Phosphatase 106 U/L (38-126); Blood Urea Nitrogen 13 mg/dL (9-20); Calcium 9.8 mg/dL (8.4-10.2); Carbon Dioxide 11 mmol/L (22-32); Chloride 109 mmol/L (98-107); Creatine Kinase 56 U/L (55-170); Estimated Glomerular Filt Rate > 60 mL/min (>60); Globulin 2.8 g/dL (1.7-4.1); Glucose 130 mg/dL (70-99); HEMOLYSIS 15 (0-50); Lipase 91 U/L (23-300); Magnesium 1.9 mg/dL (1.6-2.3); Potassium 3.6 mmol/L (3.4-5.1); Sodium 141 mmol/L (137-145); Total Protein 7.5 g/dL (6.3-8.2)
[2025-04-07 17:48] LABS: NT-proBNP (BNP-Adult 18+) 855 pg/mL (<450); Troponin I < 0.012 ng/mL (0.01-0.034)
--- NOTE | 2025-04-07 17:51 | PC.NURSE ---
pt's monitor showed hypoxia at 84% on RA. On arrival to the room the patient appeared to be apneic and was startled and took a deep breathe. He was placed on 3 liters NC and his o2 dropped down to 77% momentarily and then came back up to 97% on 3L NC. He was asked if he has sleep apnea and he could not tell me.
--- NOTE | 2025-04-07 18:02 | ED.SEIZURE ---
HPI - Seizure General Chief Complaint: Seizure Stated Complaint: Seizure/AMS/Unresponsive Time Seen by Provider: 04/07/25 18:02 Source: EMS Mode of arrival: EMS History of Present Illness HPI Narrative: 74-year-old male with history of CAD status post remote stenting, recurrent syncopal episodes December [address] head and CTA vessels workup then later outpatient on MRI brain, leading to ambulatory media monitor, question of whether or not he has atrial fibrillation, longer term loop recorder placed just yesterday by local [facility] office Dr. Lo. Recent new Trilegy medication last week. Today woke up feeling unwell, no nausea or vomiting, about 3:00 p.m. While lying on recliner was noted by to have tonic-clonic shaking upper and lower extremities both sides full body shaking lasting about 5 minutes. had been passing to and from the room, did not see the start of his shaking episode, unclear if there was focal seizure and secondary generalization, versus generalized shaking at onset. Also timing of onset of symptoms unclear at the time prefer discovery of the shaking episode. She called 911, shaking stopped prior to EMS arrival, no interventions during transport. Patient does not take antiseizure medications, no established seizure disorder in the past. Related Data Home Medications ?Medication ?Instructions ?Recorded ?Confirmed aspirin 81 mg tablet,delayed 81 mg PO DAILY 09/03/21 04/06/25 release (Adult Low Dose Aspirin) cetirizine 10 mg tablet (Zyrtec) 10 mg PO DAILY PRN Allergy Symptoms 12/03/21 04/06/25 nitroglycerin 0.4 mg sublingual 0.4 mg sublingual Q5-15M PRN Chest 12/03/21 04/06/25 tablet Pain multivitamin 1 tab PO DAILY 11/28/22 04/06/25 ranolazine 500 mg tablet,extended 500 mg PO BID 08/04/23 04/06/25 release,12 hr pantoprazole 40 mg tablet,delayed 40 mg PO DAILY 12/08/24 04/06/25 release Previous Rx's ?Medication ?Instructions ?Recorded atorvastatin 40 mg tablet 40 mg PO BEDTIME #90 tabs 02/02/21 isosorbide dinitrate 20 mg tablet 20 mg PO BID #180 tabs 12/08/23 lisinopril 5 mg tablet 5 mg PO DAILY #90 tabs 12/08/23 ondansetron 4 mg disintegrating 4 mg PO TID PRN nausea and 12/08/23 tablet vomiting #30 tabs hydrocodone 5 mg-acetaminophen 325 1 tab PO Q8H PRN pain #15 tabs 04/22/24 mg tablet clopidogrel 75 mg tablet (Plavix) 75 mg PO DAILY #90 tabs 02/14/25 fluticasone fur. 100 mcg-umeclid 1 inh inhalation DAILY #90 ea 02/15/25 62.5 mcg-vilant 25 mcg inhalat.powder (Trelegy Ellipta) fluoxetine 10 mg capsule 10 mg PO DAILY #90 caps 03/08/25 buspirone 5 mg tablet 5 mg PO .nightly PRN insomnia #30 04/06/25 tabs Allergies Allergy/AdvReac Type Severity Reaction Status Date / Time No Known Drug Allergies Allergy Verified 04/06/25 07:19 Patient History Medical History (Updated 04/07/25 @ 20:50 by Danial Lay MD) Heart attack (04/09/05) Fatigue Hiatal hernia Iron deficiency anemia Lumbar spinal stenosis Obesity (BMI 30-39.9) Insomnia Melanoma (~10/2018) Vision disorder Chicken pox Diverticular disease Coronary artery disease (~2004) Surgical History Hx of tonsillectomy H/O hernia repair S/P angioplasty Ankle pain (~2009) Colon polyps Family History Father No problems noted. Mother No problems noted. Sister No problems noted. Social History marital status: household members: spouse lives independently: Yes occupational status: previously employed Smoking Status: Current every day smoker alcohol intake: current substance use type: does not use alcohol intake frequency: 0-2 drinks per day Exam Narrative Exam Narrative: GENERAL: Well-developed patient, in mild distress. HEAD: Atraumatic. Normocephalic. EYES: Pupils equal round and reactive. Extraocular motions intact. No scleral icterus. No injection or drainage. ENT: Nose without bleeding, purulent drainage. Throat without erythema, tonsillar hypertrophy or exudate. Airway patent. NECK: Trachea midline. Non tender CARDIOVASCULAR: Regular rate and rhythm without murmurs, gallops, or rubs. RESPIRATORY: Clear to auscultation. Breath sounds equal bilaterally. No wheezes, rales, or rhonchi. GASTROINTESTINAL: Abdomen soft, non-tender, nondistended. EXTREMITIES: No edema or joint tenderness. BACK: Nontender without deformity or crepitance. No flank tenderness. NEURO: AOx3. Motor functions grossly nonfocal. SKIN: No rash or erythema of visible areas Initial Vital Signs Initial Vital Signs: Vital Signs Temperature 98.0 F 04/07/25 17:06 Pulse Rate 81 04/07/25 17:06 Respiratory Rate 19 04/07/25 17:06 Blood Pressure 150/83 H 04/07/25 17:06 Pulse Oximetry 95 04/07/25 17:06 Oxygen Delivery Method Room Air 04/07/25 17:06 Course Orders Ordered: ED Orders 04/07/25 21:30 Consult to Occupational Therapy Evaluate & Treat Consult to Physical Therapy Evaluate & Treat 04/07/25 21:31 Troponin I Stat 04/07/25 21:32 Consult to Speech Therapy Evaluate & Treat 04/08/25 04:00 Basic Metabolic Panel DAILY Complete Blood Count AUTO DIFF DAILY Acetaminophen (Acetaminophen 325 Mg Tablet) 650 mg PO Q6H PRN PRN Reason: Fever/Mild Pain (1-3) Albuterol/Ipratropium (Albuterol/Ipratropium 3 Ml Ampul) 3 ml INH RTQ4HR PRN PRN Reason: Shortness Of Breath Aspirin (Aspirin Ec 81 Mg Tablet) 81 mg PO DAILY [facility] Atorvastatin Calcium (Atorvastatin 20 Mg Tablet) 40 mg PO BEDTIME [facility] Last Admin: 04/08/25 02:59 Dose: Not Given Documented By: MAYRA Clopidogrel Bisulfate (Clopidogrel 75 Mg Tablet) 75 mg PO DAILY [facility] Diazepam (Diazepam 10 Mg/2 Ml Syringe) 5 mg IV Q4H PRN PRN Reason: Sedation Enoxaparin Sodium (Enoxaparin 40 Mg/0.4 Ml Syringe) 40 mg SUBCUT DAILY [facility] Sodium Chloride (Normal Saline 0.9%) 1,000 mls @ 100 mls/hr IV CONT [facility] Last Admin: 04/08/25 00:35 Dose: 100 mls/hr Documented By: MAYRA Lorazepam (Lorazepam 2 Mg/Ml Inj) 2 mg IV Q4HR PRN PRN Reason: Seizures Naloxone HCl (Naloxone 0.4 Mg/Ml Vial) 0.2 mg IV Q2MIN PRN PRN Reason: Opiate Reversal Ondansetron HCl (Ondansetron 4 Mg/2 Ml Inj) 4 mg IV Q8HR PRN PRN Reason: Nausea And Vomiting Last Admin: 04/08/25 00:41 Dose: 4 mg Documented By: MAYRA Pantoprazole Sodium (Pantoprazole Dr 40 Mg Tablet) 40 mg PO DAILY [facility] Ranolazine (Ranolazine 500 Mg Tab.Er.12h) 500 mg PO BID ISABEL Discontinued Medications Albuterol (Albuterol 2.5 Mg/3 Ml Neb (Adult)) 2.5 mg INH NOW ONE Stop: 04/07/25 18:40 Last Admin: 04/07/25 18:47 Dose: 2.5 mg Documented By: LESA Aspirin (Aspirin 81 Mg Chew Tab) 324 mg PO NOW ONE Stop: 04/07/25 17:15 Last Admin: 04/07/25 18:51 Dose: Not Given Documented By: YANIRA Diphenhydramine HCl (Diphenhydramine 25 Mg Tablet) 25 mg PO NOW ONE Stop: 04/08/25 02:24 Last Admin: 04/08/25 02:59 Dose: 25 mg Documented By: MAYRA Levetiracetam 2,000 mg/ Sodium (Chloride) 120 mls @ 480 mls/hr IV NOW ONE Stop: 04/07/25 18:23 Last Infusion: 04/07/25 20:08 Dose: Infused Documented By: Admin: 04/07/25 18:38 Dose: 480 mls/hr Documented By: YANIRA Potassium Chloride (Potassium Chloride 20 Meq/15 Ml Udc) 40 meq PO NOW ONE Stop: 04/07/25 20:51 Last Admin: 04/07/25 20:56 Dose: 40 meq Documented By: YANIRA Vital Signs Vital signs: Vital Signs - 8 hr 04/07/25 21:30 04/07/25 21:30 04/07/25 22:00 Pulse Rate 70 Respiratory Rate 18 Blood Pressure 133/71 135/78 Pulse Oximetry 96 04/07/25 22:00 Pulse Rate 70 Respiratory Rate 22 Blood Pressure Pulse Oximetry 92 MDM - Seizure Lab Data Attestation: I reviewed the patient's lab results. Lab results narrative: White blood cell count 17240, hemoglobin 16.5, platelets adequate. Glucose 130. BUN and creatinine normal renal function. Serum CO2 11 decreased, consistent with recent seizure activity. Sodium 141, potassium 3.6 normal range. VBG shows pH 7.43 normal. T bili 1.5 slight elevation, other liver functions normal. Lipase normal. BNP 855 elevated. Troponin negative/unmeasurable. 04/08/25 04:00 04/07/25 19:33 Labs: Lab Results 04/07/25 04/07/25 04/07/25 Range/Units 17:15 18:11 19:33 WBC 11.1 H (4.5-11.0) X10^3/uL RBC 5.71 (4.5-5.9) X10^6/uL Hgb 16.5 (13.5-17.5) g/dL Hct 50.2 (41-53) % MCV 87.8 (80-100) fL MCH 28.9 (26-34) PG MCHC 32.9 (30-36) % RDW 16.4 H (11.6-14.8) % Plt Count 157 (150-400) X10^3/uL Neut % (Auto) 85.1 H (50-75) % Lymph % (Auto) 8.7 L (25-40) % [place] % (Auto) 5.2 (3-14) % Eos % (Auto) 0.3 L (2-4) % Baso % (Auto) 0.7 (0-2) % Neut # (Auto) 9500 H (5585-6006) /uL Lymph # (Auto) 1000 L (7331-0819) /uL [place] # (Auto) 600 (0-900) /uL Eos # (Auto) 0 (0-450) /uL Baso # (Auto) 100 (0-100) /uL PT 11.4 (9.4-12.5) SECONDS INR 1.0 (0.9-1.3) APTT 32 (25.1-36.5) SECONDS VBG pH 7.43 (7.33-7.43) VBG pCO2 26.6 L (45-50) mmHg VBG pO2 29 L (35-45) mmHg VBG HCO3 18 L (24-28) mmol/L VBG Total CO2 17 L (24-29) mmol/L VBG O2 Saturation 58 L (70-75) % VBG Base Excess -4.6 L (0-4) mmol/L FiO2 % 21.0 % % Sodium 141 139 (137-145) mmol/L Potassium 3.6 3.2 L (3.4-5.1) mmol/L Chloride 109 H 108 H (98-107) mmol/L Carbon Dioxide 11 L 20 L (22-32) mmol/L BUN 13 14 (9-20) mg/dL Creatinine 0.90 0.91 (0.66-1.25) mg/dL Estimated GFR > 60 > 60 (>60) mL/min BUN/Creatinine Ratio 14.4 15.4 (6-22) Glucose 130 H 108 H (70-99) mg/dL Calcium 9.8 9.5 (8.4-10.2) mg/dL Magnesium 1.9 (1.6-2.3) mg/dL Total Bilirubin 1.5 H (0.2-1.3) mg/dL AST 35 (17-59) IU/L ALT 32 (<50) IU/L Alkaline Phosphatase 106 (38-126) U/L Total Creatine Kinase 56 (55-170) U/L Troponin I < 0.012 0.022 (0.01-0.034) ng/mL NT-Pro-B Natriuret Pep 855 H (<450) pg/mL Total Protein 7.5 (6.3-8.2) g/dL Albumin 4.7 (3.5-5.0) g/dL Globulin 2.8 (1.7-4.1) g/dL Albumin/Globulin Ratio 1.7 (1.0-2.8) Lipase 91 (23-300) U/L 04/07/25 Range/Units 21:31 WBC (4.5-11.0) X10^3/uL RBC (4.5-5.9) X10^6/uL Hgb (13.5-17.5) g/dL Hct (41-53) % MCV (80-100) fL MCH (26-34) PG MCHC (30-36) % RDW (11.6-14.8) % Plt Count (150-400) X10^3/uL Neut % (Auto) (50-75) % Lymph % (Auto) (25-40) % [place] % (Auto) (3-14) % Eos % (Auto) (2-4) % Baso % (Auto) (0-2) % Neut # (Auto) (9581-1229) /uL Lymph # (Auto) (6172-5944) /uL [place] # (Auto) (0-900) /uL Eos # (Auto) (0-450) /uL Baso # (Auto) (0-100) /uL PT (9.4-12.5) SECONDS INR (0.9-1.3) APTT (25.1-36.5) SECONDS VBG pH (7.33-7.43) VBG pCO2 (45-50) mmHg VBG pO2 (35-45) mmHg VBG HCO3 (24-28) mmol/L VBG Total CO2 (24-29) mmol/L VBG O2 Saturation (70-75) % VBG Base Excess (0-4) mmol/L FiO2 % % Sodium (137-145) mmol/L Potassium (3.4-5.1) mmol/L Chloride (98-107) mmol/L Carbon Dioxide (22-32) mmol/L BUN (9-20) mg/dL Creatinine (0.66-1.25) mg/dL Estimated GFR (>60) mL/min BUN/Creatinine Ratio (6-22) Glucose (70-99) mg/dL Calcium (8.4-10.2) mg/dL Magnesium (1.6-2.3) mg/dL Total Bilirubin (0.2-1.3) mg/dL AST (17-59) IU/L ALT (<50) IU/L Alkaline Phosphatase (38-126) U/L Total Creatine Kinase (55-170) U/L Troponin I 0.037 H (0.01-0.034) ng/mL NT-Pro-B Natriuret Pep (<450) pg/mL Total Protein (6.3-8.2) g/dL Albumin (3.5-5.0) g/dL Globulin (1.7-4.1) g/dL Albumin/Globulin Ratio (1.0-2.8) Lipase (23-300) U/L Imaging Data CT scan - head: Radiologist's Impression: Close Chest X-Ray (Signed) Huber Gaspar - 04/07/[address] (Signed) Huber Gaspar - 04/07/25 Launch?Image [address] [address] [address] Scan Report Signed Patient: Sharif Manning MR#: [id number] : 1950 Acct:[id number] Age/Sex: 74 / M Date of Service: 04/07/25 Loc: ED Accession Number: [id number] Procedure: CT head/brain wo con Ordering Provider: Oli Allred MD PROCEDURE: CT HEAD/BRAIN WO CON INDICATIONS: seizure TECHNIQUE: Noncontrast 4.5 mm thick angled axial sections acquired from the foramen magnum to the vertex, with coronal and sagittal reformats. For radiation dose reduction, the following was used: automated exposure control, adjustment of mA and/or kV according to patient size. COMPARISON: [facility], CT, CT HEAD/BRAIN WO CON, 01/17/2025, 9:31. [facility], CT, CT STROKE, 01/19/2025, 9:14. FINDINGS: Image quality: Diagnostic. CSF spaces: Basal cisterns are patent. No extra-axial fluid collections. The ventricles are symmetric in size and shape. Brain: No intracranial bleeds or mass effect. There is cerebral volume loss, with resultant ventricular and sulcal prominence. There are periventricular and deep white matter chronic small vessel ischemic changes. There is intracranial internal carotid artery atherosclerosis. Skull and face: Calvarium and visualized facial bones appear intact, without suspicious lesions. Sinuses: Visualized sinuses and mastoids are clear. IMPRESSION: No acute intracranial pathology. Dictated by: Huber Gaspar M.D. on 04/07/2025 at 17:36 Approved by: Huber Gaspar M.D. on 04/07/2025 at 17:37 Chest x-ray: Radiologist's Impression: [address] [address] XRay Report Signed Patient: Sharif Manning MR#: [id number] : 1950 Acct:[id number] Age/Sex: 74 / M Date of Service: 04/07/25 Loc: ED Accession Number: [id number] Procedure: XR chest 1V Ordering Provider: Oli Allred MD PROCEDURE: XR CHEST 1V INDICATIONS: Chest Pain TECHNIQUE: One view of the chest was acquired. COMPARISON: [facility], CR, XR CHEST 1V, 01/19/2025, 9:05. [facility], CR, XR CHEST 2V, 10/04/2024, 14:36. FINDINGS: Surgical changes and devices: None. Lungs and pleura: Lungs are clear. No pleural effusions or pneumothorax. Mediastinum: Moderate hiatal hernia is redemonstrated. Mediastinal contours appear normal. Heart size is enlarged, stable. Bones and chest wall: No suspicious bony lesions. Overlying soft tissues appear unremarkable. IMPRESSION: No acute cardiopulmonary abnormality is seen. Dictated by: Huber Gaspar M.D. on 04/07/2025 at 17:37 Approved by: Huber Gaspar M.D. on 04/07/2025 at 17:38 CTA chest PE protocol: Radiologist's Impression: [place] [address] CT Scan Report Signed Patient: Sharif Manning MR#: [id number] : 1950 Acct:[id number] Age/Sex: 74 / M Date of Service: 04/07/25 Loc: ED Accession Number: [id number] Procedure: CT angio chest PE protocol Ordering Provider: Danial Lay MD PROCEDURE: CT ANGIO CHEST PE PROTOCOL INDICATIONS: tachypnea TECHNIQUE: After the administration of intravenous contrast, 2 mm thick sections acquired from the pulmonary apices to the posterior costophrenic angles. 3-dimensional maximum intensity projection (MIP) coronal and sagittal reformats were then acquired through the thorax. For radiation dose reduction, the following was used: automated exposure control, adjustment of mA and/or kV according to patient size. COMPARISON: CT chest 11/16/2023. FINDINGS: Image quality: Diagnostic. Pulmonary arteries: Pulmonary arteries are normal in size, and demonstrate no intraluminal filling defects to suggest central pulmonary embolism. Lower Neck: No enlarged lymph nodes. Thyroid: No thyroid nodules which require sonographic follow up, per consensus guidelines. Axillae: No enlarged lymph nodes. Chest Wall: Unremarkable. Bones: Unremarkable. Lungs and Pleura: No pneumothorax or pleural effusions. No consolidation or suspicious nodules. A few scattered calcified granulomas. Moderate paraseptal and centrilobular emphysema. Bibasilar atelectasis Heart: Heart size is normal. No pericardial effusion. Triple-vessel coronary artery calcifications. Thoracic Vessels: No aortic aneurysm. Mediastinum and Brandy: No enlarged lymph nodes. Esophagus: No wall thickening. Large hiatal hernia. Upper Abdomen: Visualized upper abdomen solid organs and bowel loops appear normal. IMPRESSION: No pulmonary embolus. No acute cardiopulmonary process. Large hiatal hernia. Approved by: Tracy Rey M.D.,Ph.D. on 04/07/2025 at 20:56 CT scan - abdomen/pelvis: Radiologist's Impression: [address] [address] [address] Scan Report Signed Patient: Sharif Manning MR#: [id number] : 1950 Acct:[id number] Age/Sex: 74 / M Date of Service: 04/07/25 Loc: ED Accession Number: [id number] Procedure: CT abdomen pelvis w con Ordering Provider: Danial Lay MD PROCEDURE: CT ABDOMEN PELVIS W CON INDICATIONS: tachypnea TECHNIQUE: After the administration of intravenous contrast, axial sections acquired from the lung bases to the pubic symphysis. Coronal and sagittal reformats were performed. For radiation dose reduction, the following was used: automated exposure control, adjustment of mA and/or kV according to patient size. COMPARISON: Same-day CT chest PE angiogram 04/07/2025. FINDINGS: Image quality: Diagnostic. Lower Chest: Please see separately dictated concurrently obtained CT chest PE ABDOMEN: Liver: No solid mass. Gallbladder: Cholelithiasis. No wall thickening or pericholecystic fluid. Biliary ducts: No biliary dilation. Pancreas: No ductal dilation. Spleen: Size is within normal limits. Adrenal Glands: No adrenal nodules. Kidneys and Ureters: No hydronephrosis. No solid mass. No complex renal cystic lesion which requires follow up. Large bilateral simple renal cysts. Stomach and Bowel: Normal colonic caliber, without significant wall thickening. Normal caliber appendix. Colonic diverticulosis without acute inflammation. Peritoneum: No abnormal intraperitoneal fluid. No free air. Ventral Wall: No significant ventral hernia. Abdominal Nodes: No retroperitoneal or mesenteric adenopathy by size criteria. Vessels: Aorta and inferior vena cava are normal in size. Aorto bi iliac atherosclerotic calcifications. PELVIS: Pelvic Organs: Prostatomegaly. Bladder: No bladder wall thickening, accounting for underdistention. Pelvic Nodes: No enlarged lymph nodes. Miscellaneous: Small fat containing bilateral inguinal hernias are seen. Bones: No aggressive osseous abnormality. IMPRESSION: 1. Cholelithiasis without CT evidence of acute cholecystitis. 2. Diverticulosis without CT evidence of acute diverticulitis. 3. Prostatomegaly. Approved by: Tracy Rey M.D.,Ph.D. on 04/07/2025 at 21:01 ECG Data Attestation: I personally reviewed and interpreted this ECG as follows: Interpretation: 1719, normal sinus rhythm with rate of 74, no obvious ST segment elevation or depression changes. NC 188, QRS 98, QTC 515. MDM Narrative Medical decision making narrative: 74-year-old male with recurrent syncopal episodes December 2024, prompting workup including CT head and CT angiogram vessels, had outpatient MRI of the brain, more recently wearing ambulatory media monitor, question of whether or not he has intermittent AFib, taking Plavix/aspirin only as blood thinner medications, yesterday had permanent media monitor implant intending to wear this for the next 1 year. Today felt weak this morning, 3:00 p.m. had witnessed shaking arms legs body, possible seizure, lasting multiple minutes, with confusion thereafter, arrival by EMS without interventions during transport. Persisting confusion. CT head ordered from triage. Screening labs show decreased serum carbon dioxide 11, consistent with recent seizure. VBG pH normal. EKG sinus rhythm, no obvious ischemic changes. CT head no acute changes, see radiology report. Chest x-ray no aspiration or acute changes, see radiology report. Mildly low sats, some tachypnea while awake, nebulized albuterol, no significant change. CTA chest with IV only CT abdomen and pelvis imaging ordered. 2099, CTA chest. No pulmonary embolus. Large hiatal hernia noted. No acute changes. See radiology report. 2109, CT abdomen and pelvis. No acute changes. Cholelithiasis without cholecystitis. Diverticulosis without diverticulitis. See radiology report. Interval repeat troponin along with repeat BMP pending. IV Keppra load completed, no seizure activity while here in the emergency department. On 2 L oxygen, no response to nebulized bronchodilator, consider admission. Repeat basic metabolic panel shows improvement of serum CO2 20. Interval decreased potassium 3.2, likely some dilution from previous value after IV fluids, oral potassium repletion given. 2129, discussed with Dr Wilson, requests consult with Neuro, will consult [facility]. Send images. 2149, case discussed with [facility] intake nurse, await call back from Neurology. 2214, case discussed with [facility] Neurology on-call Dr. Paiz, agrees with IV Keppra load for now, feels the patient can be managed here, understands hypoxia concern for further evaluation, negative for aspiration on imaging, negative for PE end gross fluid overload. Recommends patient have MRI brain without contrast and with contrast in the morning. Can give oral Keppra 500 mg in the morning. If MRI negative then with first-time seizure patient might not necessarily need further Keppra for discharge. If MRI can not be obtained tomorrow then she recommends patient be continued on Keppra as an outpatient, and have outpatient EEG evaluation. ED LIQUEFACTION SUPERVISOR contacted diagnostic geospatial technologist on-call, MRI should be available tomorrow on April. Will update hospitalist as to above neurology phone consult recommendations. Case discussed with hopsitalist Dr. Wilson who accepts patient for admission. Critical Care Time Critical Care Time Critical Care Time: Yes Total Critical Care Time: 35 Attestation: The high probability of a clinically significant, sudden or life threatening deterioration of the [cardiopulmonary, neurologic, metabolic] system(s) required my full and direct attention, intervention and personal management. The aggregate critical care time was [35] minutes. This time is in addition to time spent performing reported procedures but includes the following: [x] Data Review and interpretation [x] Patient assessment and monitoring of vital signs [x] Documentation [x] Medication orders and management Discharge Plan Departure Patient Disposition: Admitted as Observation Clinical Impression: Seizure, Tachypnea, Hypokalemia Admit Date/Time: 04/07/25 22:30 Admit Provider: Marcelo Wilson
[2025-04-07 18:16] LABS: Base Excess VBG -4.6 mmol/L (0-4); HCO3 VBG 18 mmol/L (24-28); Oxygen Saturation VBG 58 % (70-75); PCO2 VBG 26.6 mmHg (45-50); PO2 VBG 29 mmHg (35-45); Total CO2 VBG 17 mmol/L (24-29); pH VBG 7.43 (7.33-7.43)
[2025-04-07] MEDS: ALBUTEROL 2.5 MG/3 ML NEB (ADULT) INH (18:47)
--- NOTE | 2025-04-07 19:20 | DI.CT.S_ITS ---
PROCEDURE: CT ANGIO CHEST PE PROTOCOL INDICATIONS: tachypnea TECHNIQUE: After the administration of intravenous contrast, 2 mm thick sections acquired from the pulmonary apices to the posterior costophrenic angles. 3-dimensional maximum intensity projection (MIP) coronal and sagittal reformats were then acquired through the thorax. For radiation dose reduction, the following was used: automated exposure control, adjustment of mA and/or kV according to patient size. COMPARISON: CT chest 11/16/2023. FINDINGS: Image quality: Diagnostic. Pulmonary arteries: Pulmonary arteries are normal in size, and demonstrate no intraluminal filling defects to suggest central pulmonary embolism. Lower Neck: No enlarged lymph nodes. Thyroid: No thyroid nodules which require sonographic follow up, per consensus guidelines. Axillae: No enlarged lymph nodes. Chest Wall: Unremarkable. Bones: Unremarkable. Lungs and Pleura: No pneumothorax or pleural effusions. No consolidation or suspicious nodules. A few scattered calcified granulomas. Moderate paraseptal and centrilobular emphysema. Bibasilar atelectasis Heart: Heart size is normal. No pericardial effusion. Triple-vessel coronary artery calcifications. Thoracic Vessels: No aortic aneurysm. Mediastinum and Brandy: No enlarged lymph nodes. Esophagus: No wall thickening. Large hiatal hernia. Upper Abdomen: Visualized upper abdomen solid organs and bowel loops appear normal. IMPRESSION: No pulmonary embolus. No acute cardiopulmonary process. Large hiatal hernia. Approved by: Tracy Rey M.D.,Ph.D. on 04/07/2025 at 20:56
--- NOTE | 2025-04-07 19:21 | DI.CT.S_ITS ---
PROCEDURE: CT ABDOMEN PELVIS W CON INDICATIONS: tachypnea TECHNIQUE: After the administration of intravenous contrast, axial sections acquired from the lung bases to the pubic symphysis. Coronal and sagittal reformats were performed. For radiation dose reduction, the following was used: automated exposure control, adjustment of mA and/or kV according to patient size. COMPARISON: Same-day CT chest PE angiogram 04/07/2025. FINDINGS: Image quality: Diagnostic. Lower Chest: Please see separately dictated concurrently obtained CT chest PE ABDOMEN: Liver: No solid mass. Gallbladder: Cholelithiasis. No wall thickening or pericholecystic fluid. Biliary ducts: No biliary dilation. Pancreas: No ductal dilation. Spleen: Size is within normal limits. Adrenal Glands: No adrenal nodules. Kidneys and Ureters: No hydronephrosis. No solid mass. No complex renal cystic lesion which requires follow up. Large bilateral simple renal cysts. Stomach and Bowel: Normal colonic caliber, without significant wall thickening. Normal caliber appendix. Colonic diverticulosis without acute inflammation. Peritoneum: No abnormal intraperitoneal fluid. No free air. Ventral Wall: No significant ventral hernia. Abdominal Nodes: No retroperitoneal or mesenteric adenopathy by size criteria. Vessels: Aorta and inferior vena cava are normal in size. Aorto bi iliac atherosclerotic calcifications. PELVIS: Pelvic Organs: Prostatomegaly. Bladder: No bladder wall thickening, accounting for underdistention. Pelvic Nodes: No enlarged lymph nodes. Miscellaneous: Small fat containing bilateral inguinal hernias are seen. Bones: No aggressive osseous abnormality. IMPRESSION: 1. Cholelithiasis without CT evidence of acute cholecystitis. 2. Diverticulosis without CT evidence of acute diverticulitis. 3. Prostatomegaly. Approved by: Tracy Rey M.D.,Ph.D. on 04/07/2025 at 21:01
[2025-04-07 19:50] LABS: Blood Urea Nitrogen 14 mg/dL (9-20); Calcium 9.5 mg/dL (8.4-10.2); Carbon Dioxide 20 mmol/L (22-32); Chloride 108 mmol/L (98-107); Estimated Glomerular Filt Rate > 60 mL/min (>60); Glucose 108 mg/dL (70-99); HEMOLYSIS < 15 (0-50); Potassium 3.2 mmol/L (3.4-5.1); Sodium 139 mmol/L (137-145)
[2025-04-07 20:02] LABS: Troponin I 0.022 ng/mL (0.01-0.034)
[2025-04-07] MEDS: POTASSIUM CHLORIDE 20 MEQ/15 ML UDC 40 MEQ PO (20:56)
--- NOTE | 2025-04-07 21:45 | PC.NURSE ---
assisted pt to stand at bedside to use urinal, stood at curtain curtain to provide privacy,
[2025-04-07 22:02] LABS: Troponin I 0.037 ng/mL (0.01-0.034)
--- NOTE | 2025-04-07 23:36 | P.HP_ITS ---
History of Present Illness History of Present Illness Chief complaint: Seizure/AMS/Unresponsive Narrative: 74-year-old male with past medical history of coronary disease status post stents, hyperlipidemia, hypertension, GERD and depression presents with seizure. Of note the patient still has some mild confusion and unable to give a reliable history. Per the patient's , who is at the bedside, the patient has been having recurrent syncopal episodes since December 2024. The patient did have extensive outpatient workup including echocardiogram, CT head and neck, brain MRI ambulatory library monitor and a recent long-term loop recorder that was placed yesterday by a local ecommerce marketing manager Dr. Lo. Today, the patient woke up feeling unwell and around 3 PM while in the recliner the patient saw that the patient had a tonic-clonic seizure. Per report the patient never had prior history of seizure activity. Prior to arriving to our ER at the seizure/shaking stopped on its own. There is no report of any focal weakness though there was some confusion postictal. Otherwise there is no report of any recent fever, chills, nausea, vomiting, diarrhea, chest pain, palpitation or shortness of breath. In our emergency room, the patient was seen dynamically stable. However the patient did require 2 L of oxygen per nasal cannula. Chest x-ray and CT angio of the chest shows no signs of PE pneumonia or PE respectively. Labs were relatively benign except for a potassium of 3.2. Troponin were negative x 2. BNP 855. Again EKG shows no signs of arrhythmia or signs of acute ischemia. CT head without contrast also was negative. Patient was nonfocal on exam but was somewhat confused and only was oriented to self and place but not the date. The patient did have a loading dose of Keppra 2 g IV. Neurology was consulted over the phone and recommended that we admit the patient for observation overnight and to monitor for any recurrent seizure activity. Also to obtain brain MRI in the morning. [facility] Medical History (Updated 04/07/25 @ 20:50 by Danial Lay MD) Heart attack (04/09/05) Fatigue Hiatal hernia Iron deficiency anemia Lumbar spinal stenosis Obesity (BMI 30-39.9) Insomnia Melanoma (~10/2018) Vision disorder Chicken pox Diverticular disease Coronary artery disease (~2004) Surgical History Hx of tonsillectomy H/O hernia repair S/P angioplasty Ankle pain (~2009) Colon polyps Family History Father No problems noted. Mother No problems noted. Sister No problems noted. Social History marital status: household members: spouse lives independently: Yes occupational status: previously employed alcohol intake: current substance use type: does not use Meds Home Medications and Allergies Home Medications ?Medication ?Instructions ?Recorded ?Confirmed ?Type atorvastatin 40 mg tablet 40 mg PO BEDTIME #90 tabs 04/06/25 Rx aspirin 81 mg tablet,delayed 81 mg PO DAILY 09/03/21 0 04/06/25 History release (Adult Low Dose Aspirin) cetirizine 10 mg tablet (Zyrtec) 10 mg PO DAILY PRN Al lergy Symptoms 12/03/21 04/06/25 History nitroglycerin 0.4 mg sublingual 0.4 mg sublingual Q5-1 5M PRN Chest 12/03/21 04/06/25 History tablet Pain multivitamin 1 tab PO DAILY 11/28/22 07/11/30 History ranolazine 500 mg tablet,extended 500 mg PO BID 04/06/25 History release,12 hr isosorbide dinitrate 20 mg tablet 20 mg PO BID #180 ta bs 12/08/23 04/06/25 Rx lisinopril 5 mg tablet 5 mg PO DAILY #90 tabs 12/0704/06/25 Rx ondansetron 4 mg disintegrating 4 mg PO TID PRN nausea and 12/08/23 04/06/25 Rx tablet vomiting #30 tabs hydrocodone 5 mg-acetaminophen 325 1 tab PO Q8H PRN pa in #15 tabs 04/22/24 04/06/25 Rx mg tablet pantoprazole 40 mg tablet,delayed 40 mg PO DAILY 12/0804/06/25 History release clopidogrel 75 mg tablet (Plavix) 75 mg PO DAILY #90 t abs 02/14/25 04/06/25 Rx fluticasone fur. 100 mcg-umeclid 1 inh inhalation SIDDHARTHA Y #90 ea 02/15/25 04/06/25 Rx 62.5 mcg-vilant 25 mcg inhalat.powder (Trelegy Ellipta) fluoxetine 10 mg capsule 10 mg PO DAILY #90 caps 12/2804/06/25 Rx buspirone 5 mg tablet 5 mg PO .nightly PRN insomni a #30 04/06/25 04/06/25 Rx tabs Allergies Allergy/AdvReac Type Severity Reaction Status Date / Time No Known Drug Allergies Allergy Verified 04/06/25 07:19 Review of Systems Review of Systems ROS: Yes All systems reviewed with the patient and are negative except as otherwise documented Exam Vital Signs (past 8 hours): - 04/07/25 17:06 04/07/25 17:10 04/07/25 17:10 Temperature 98.0 F Pulse Rate 81 81 Respiratory Rate 19 23 Blood Pressure 150/83 H 150/83 H Pulse Oximetry 95 95 Oxygen Delivery Method Room Air Oxygen Flow Rate 04/07/25 17:32 04/07/25 17:33 04/07/25 17:33 Temperature Pulse Rate 72 70 Respiratory Rate 23 Blood Pressure 143/77 H Pulse Oximetry 99 99 Oxygen Delivery Method Oxygen Flow Rate 04/07/25 18:00 04/07/25 18:00 04/07/25 18:30 Temperature Pulse Rate 70 67 Respiratory Rate 20 11 L Blood Pressure 146/79 H Pulse Oximetry 99 85 L Oxygen Delivery Method Oxygen Flow Rate 04/07/25 18:30 04/07/25 18:48 04/07/25 18:57 Temperature Pulse Rate 62 Respiratory Rate 20 Blood Pressure 145/72 H Pulse Oximetry 100 95 Oxygen Delivery Method Nasal Cannula Room Air Oxygen Flow Rate 2 04/07/25 19:00 04/07/25 19:00 04/07/25 19:30 Temperature Pulse Rate 63 70 Respiratory Rate 14 20 Blood Pressure 131/72 Pulse Oximetry 92 96 Oxygen Delivery Method Oxygen Flow Rate 04/07/25 19:30 04/07/25 20:16 04/07/25 20:30 Temperature Pulse Rate Respiratory Rate Blood Pressure 133/78 141/70 H Pulse Oximetry 100 Oxygen Delivery Method Oxygen Flow Rate 04/07/25 20:30 04/07/25 20:30 04/07/25 21:00 Temperature Pulse Rate 65 65 66 Respiratory Rate 16 16 22 Blood Pressure Pulse Oximetry 98 98 99 Oxygen Delivery Method Oxygen Flow Rate 04/07/25 21:00 04/07/25 21:30 04/07/25 21:30 Temperature Pulse Rate 70 Respiratory Rate 18 Blood Pressure 150/75 H 133/71 Pulse Oximetry 96 Oxygen Delivery Method Oxygen Flow Rate 04/07/25 22:00 04/07/25 22:00 04/07/25 22:31 Temperature Pulse Rate 70 Respiratory Rate 22 Blood Pressure 135/78 100/55 L Pulse Oximetry 92 Oxygen Delivery Method Oxygen Flow Rate 04/07/25 22:31 04/07/25 23:00 04/07/25 23:00 Temperature Pulse Rate 69 62 Respiratory Rate 17 11 L Blood Pressure 130/69 Pulse Oximetry 95 97 Oxygen Delivery Method Oxygen Flow Rate Oxygen Delivery Method Room Air Oxygen Flow Rate 2 Narrative Exam Narrative: Physical Exam: GENERAL: The patient is not in any acute distressed. Awake and alert. HEENT: Nonicteric sclerae, PERRLA, EOMI. Oropharynx clear. Moist mucous membranes. Conjunctivae appear well perfused. HEART: Regular rate and rhythm without murmurs. No lower extremities edema. LUNGS: Clear to auscultation bilaterally. No wheezing, crackles or rhonchi ABDOMEN: Soft, positive bowel sounds, nontender. SKIN: No rash, no excessive bruising, petechiae, or purpura. NEUROLOGIC: AxO x 2. Cranial nerves II-XII intact without motor/sensory deficit. Objective Labs 04/07/25 17:15 04/07/25 19:33 Labs: Laboratory Results - last 24 hr 04/07/25 04/07/25 04/07/25 17:15 18:11 19:33 WBC 11.1 H RBC 5.71 Hgb 16.5 Hct 50.2 MCV 87.8 MCH 28.9 MCHC 32.9 RDW 16.4 H Plt Count 157 Neut % (Auto) 85.1 H Lymph % (Auto) 8.7 L [place] % (Auto) 5.2 Eos % (Auto) 0.3 L Baso % (Auto) 0.7 Neut # (Auto) 9500 H Lymph # (Auto) 1000 L [place] # (Auto) 600 Eos # (Auto) 0 Baso # (Auto) 100 PT 11.4 INR 1.0 APTT 32 VBG pH 7.43 VBG pCO2 26.6 L VBG pO2 29 L VBG HCO3 18 L VBG Total CO2 17 L VBG O2 Saturation 58 L VBG Base Excess -4.6 L FiO2 % 21.0 % Sodium 141 139 Potassium 3.6 3.2 L Chloride 109 H 108 H Carbon Dioxide 11 L 20 L BUN 13 14 Creatinine 0.90 0.91 Estimated GFR > 60 > 60 BUN/Creatinine Ratio 14.4 15.4 Glucose 130 H 108 H Calcium 9.8 9.5 Magnesium 1.9 Total Bilirubin 1.5 H AST 35 ALT 32 Alkaline Phosphatase 106 Total Creatine Kinase 56 Troponin I < 0.012 0.022 NT-Pro-B Natriuret Pep 855 H Total Protein 7.5 Albumin 4.7 Globulin 2.8 Albumin/Globulin Ratio 1.7 Lipase 91 04/07/25 21:31 WBC RBC Hgb Hct MCV MCH MCHC RDW Plt Count Neut % (Auto) Lymph % (Auto) [place] % (Auto) Eos % (Auto) Baso % (Auto) Neut # (Auto) Lymph # (Auto) [place] # (Auto) Eos # (Auto) Baso # (Auto) PT INR APTT VBG pH VBG pCO2 VBG pO2 VBG HCO3 VBG Total CO2 VBG O2 Saturation VBG Base Excess FiO2 % Sodium Potassium Chloride Carbon Dioxide BUN Creatinine Estimated GFR BUN/Creatinine Ratio Glucose Calcium Magnesium Total Bilirubin AST ALT Alkaline Phosphatase Total Creatine Kinase Troponin I 0.037 H NT-Pro-B Natriuret Pep Total Protein Albumin Globulin Albumin/Globulin Ratio Lipase Assessment & Plan Assessment & Plan narrative: First episodes of seizure. Admit the patient to medical telemetry under observation. Of note it was reported that the patient had a tonic-clonic seizure. The patient also had a history since December 2024 of recurrence syncope. However extensive cardiac and neuro workup as outpatient as described by H&P are negative so far. Patient had a loading dose of Keppra IV 2 g in the ER. There is no recurrent episode of seizure while in the ER. Patient is nonfocal on exam. Neurology was called by her ER physician who recommend that we can safely admit the patient here and to monitor patient for recurrent signs of seizure overnight. Recommend to get a brain MRI in the morning. Will need to follow-up with neurology postdischarge. Continue to monitor neurostatus with seizure precautions. Recurrent syncope. As discussed above. Extensive workup has been negative so far. Patient currently has a cardiac event loop recorder placed yesterday. Will continue to monitor. Patient syncope could be related to seizure rather than cardiac but it is unclear at this time. Mild hypokalemia. potassium 3.2. Replace and monitor. Coronary Artery disease. Again troponins been negative x 2. Will continue to monitor for now. Resume home cardiac medication. Postictal confusion. Will monitor patient mental status. Patient has no sign of infection. CT head is negative. Patient confusion is improving per the patient's who was at the bedside. Hyperlipidemia. Resume home statin. Hypertension. Monitor blood pressure and resume home medication accordingly. Depression. Resume home antidepressant once medication is reconciled morning. DVT prophylaxis SCDs due to observational status. CODE STATUS full code. Disposition likely home in 1 to 2 days - As the provider of this telehealth evaluation, requested by the patient's evaluating physician, I attest that I introduced myself to the patient, provided my credentials and determined that telemedicine via a real-time, 2 way interactive audio and video platform is an appropriate and effective means of providing this service. - I reviewed the patient's chart and had a discussion with the member of the patient's treatment team. - The patient and I mutually agreed with continuation of this evaluation via telemedicine. The patient consented for the telemedicine evaluation. - This virtual encounter was taken place from [place] by Dr. Marcelo Wilson. The patient was evaluated at [facility]. The encounter was approximately 35 minutes. The nurse was present during the entire time of the encounter and was able to move the stethoscope in appropriate directions. Time-Based Coding :: [TOTAL MINUTES] spent with patient and on the chart (including review of chart, obtaining history, exam, reviewing outside data, placing orders, documenting exam and treatment plan, and counseling patient) on [DATE].
[2025-04-08] VITALS (11 sets, daily range): BP systolic 117–164; BP diastolic 67–91; PULSE 55–86; RESP 12–21; TEMP 36.2–36.6; O2SAT 95–99; BMI 30.6
[2025-04-08] MEDS: SODIUM CHLORIDE 0.9% 1,000 ML 100 ML IV (00:35)
[2025-04-08] MEDS: ONDANSETRON 4 MG/2 ML INJ IV (00:41)
[2025-04-08] MEDS: diphenhydrAMINE 25 MG TABLET PO (02:59)
[2025-04-08 03:35] LABS: MRSA (Nasal) PCR NOT DETECTED (Not Detect)
[2025-04-08 04:41] LABS: Add Manual Diff / Slide Review NO; Hematocrit 47.1 % (41-53); Hemoglobin 15.9 g/dL (13.5-17.5); Lymphocytes Absolute Auto 800 /uL (1100-4500); Mean Corpuscular HGB Conc 33.7 % (30-36); Mean Corpuscular Hemoglobin 29.1 PG (26-34); Mean Corpuscular Volume 86.3 fL (80-100); Platelet Count 145 X10^3/uL (150-400)
[2025-04-08 04:52] LABS: Blood Urea Nitrogen 12 mg/dL (9-20); Calcium 9.2 mg/dL (8.4-10.2); Carbon Dioxide 24 mmol/L (22-32); Chloride 108 mmol/L (98-107); Estimated Glomerular Filt Rate > 60 mL/min (>60); Glucose 108 mg/dL (70-99); HEMOLYSIS < 15 (0-50); Potassium 3.9 mmol/L (3.4-5.1); Sodium 140 mmol/L (137-145)
--- NOTE | 2025-04-08 05:20 | PC.WOUNDPHOT ---
Image of mid-chest dressing with bruising inferior.
--- NOTE | 2025-04-08 06:15 | DI.MRI.S_ITS ---
PROCEDURE: MR HEAD/BRAIN WO CON INDICATIONS: seizure TECHNIQUE: Noncontrast axial T1 spin echo, axial T2 fast spin echo, sagittal and axial FLAIR, coronal T2 fast spin echo, axial gradient echo, axial diffusion and ADC through the brain. COMPARISON: [facility], MR, MR HEAD/BRAIN WO CON, 12/16/2024, 12:27. FINDINGS: Image quality: Diagnostic CSF spaces: Basal cisterns are patent. Lateral ventricles are symmetric. Volume: Volume loss. Periventricular white matter signal abnormality most commonly seen with small vessel disease. These findings are mild Brain: No significant parenchymal edema. On diffusion images, there is no acute restriction. On susceptibility images, no acute hemorrhage. On coronal images, symmetric appearance of the medial temporal lobes. No asymmetric temporal horn dilation Craniofacial structures: Lens replacements. IMPRESSION: No acute restriction to indicate infarct, or hematoma. No significant parenchymal edema on this noncontrast study. Dictated by: Feroz Wakefield M.D. on 04/09/2025 at 9:16 Approved by: Feroz Wakefield M.D. on 04/09/2025 at 9:19
[2025-04-08 06:47] LABS: Creatine Kinase 103 U/L (55-170)
[2025-04-08 07:00] LABS: Troponin I 0.043 ng/mL (0.01-0.034)
--- NOTE | 2025-04-08 07:59 | P.PN_ITS ---
Subjective Subjective Interval history: Summary: Patient was a 74-year-old male with a history of CAD, stenting, hyperlipidemia, hypertension, GERD, and depression. He presented with a seizure. The patient also has a recent history of recurrent syncopal episodes over the past several months with a outpatient workup including echo, CT imaging of the brain am, MRI of the brain, and a electronic device monitor as well as a recent implant of a long-term loop recorder. Case was discussed with [facility], IV Keppra was given. MRI of the brain was ordered. S: He was doing well this morning except he can not recall the last 3 days. He was somewhat anxious and tearful. He denies a headache, or numbness weakness of arms or legs. No arrhythmia overnight. Exam Vital Signs (past 8 hours): - 04/08/25 00:00 04/08/25 00:00 04/08/25 00:37 Pulse Rate 62 85 Respiratory Rate 12 Blood Pressure 132/68 Pulse Oximetry 96 98 Oxygen Delivery Method Oxygen Flow Rate 04/08/25 00:38 04/08/25 00:38 04/08/25 00:57 Pulse Rate 86 Respiratory Rate Blood Pressure 164/91 H Pulse Oximetry 97 Oxygen Delivery Method Room Air Oxygen Flow Rate 04/08/25 01:00 04/08/25 01:00 04/08/25 01:30 Pulse Rate 61 62 Respiratory Rate 16 13 Blood Pressure 132/69 Pulse Oximetry 95 95 Oxygen Delivery Method Oxygen Flow Rate 04/08/25 01:50 Pulse Rate Respiratory Rate Blood Pressure Pulse Oximetry 97 Oxygen Delivery Method Nasal Cannula Oxygen Flow Rate 1 Oxygen Delivery Method Nasal Cannula Oxygen Flow Rate 1 Narrative Exam Narrative: NAD, alert and oriented. Fluent speech. Lungs are clear, normal rate and effort. Heart is regular, no murmur gallop or rub. Abdomen is soft, non distended. Extremities are free of edema. Objective ECG Impression: Intervals [place] Rate: 74 P: -22 [place]: 188 QRS: -9 QRSD: 98 T: 3 QT: 464 QTc: 515 Interpretive Statements Normal sinus rhythm Low voltage QRS Nonspecific T wave abnormality Imaging Multiple studies:: Radiologist's impression: Abdomen pelvis CT: 1. Cholelithiasis without CT evidence of acute cholecystitis. 2. Diverticulosis without CT evidence of acute diverticulitis. 3. Prostatomegaly. Chest CTA: No pulmonary embolus. No acute cardiopulmonary process. Large hiatal hernia. Head CT: No acute intracranial pathology. Chest x-ray: No acute cardiopulmonary abnormality is seen. Labs 04/08/25 04:00 04/08/25 04:00 Labs: Laboratory Results - last 24 hr 04/07/25 04/07/25 04/07/25 17:15 18:11 19:33 WBC 11.1 H RBC 5.71 Hgb 16.5 Hct 50.2 MCV 87.8 MCH 28.9 MCHC 32.9 RDW 16.4 H Plt Count 157 Neut % (Auto) 85.1 H Lymph % (Auto) 8.7 L [place] % (Auto) 5.2 Eos % (Auto) 0.3 L Baso % (Auto) 0.7 Neut # (Auto) 9500 H Lymph # (Auto) 1000 L [place] # (Auto) 600 Eos # (Auto) 0 Baso # (Auto) 100 PT 11.4 INR 1.0 APTT 32 VBG pH 7.43 VBG pCO2 26.6 L VBG pO2 29 L VBG HCO3 18 L VBG Total CO2 17 L VBG O2 Saturation 58 L VBG Base Excess -4.6 L FiO2 % 21.0 % Sodium 141 139 Potassium 3.6 3.2 L Chloride 109 H 108 H Carbon Dioxide 11 L 20 L BUN 13 14 Creatinine 0.90 0.91 Estimated GFR > 60 > 60 BUN/Creatinine Ratio 14.4 15.4 Glucose 130 H 108 H Calcium 9.8 9.5 Magnesium 1.9 Total Bilirubin 1.5 H AST 35 ALT 32 Alkaline Phosphatase 106 Total Creatine Kinase 56 Troponin I < 0.012 0.022 NT-Pro-B Natriuret Pep 855 H Total Protein 7.5 Albumin 4.7 Globulin 2.8 Albumin/Globulin Ratio 1.7 Lipase 91 Nasal Screen MRSA (PCR) 04/07/25 04/08/25 04/08/25 21:31 00:44 04:00 WBC 10.6 RBC 5.46 Hgb 15.9 Hct 47.1 MCV 86.3 MCH 29.1 MCHC 33.7 RDW 16.9 H Plt Count 145 L Neut % (Auto) 84.6 H Lymph % (Auto) 7.4 L [place] % (Auto) 7.5 Eos % (Auto) 0.3 L Baso % (Auto) 0.2 Neut # (Auto) 9000 H Lymph # (Auto) 800 L [place] # (Auto) 800 Eos # (Auto) 0 Baso # (Auto) 0 PT INR APTT VBG pH VBG pCO2 VBG pO2 VBG HCO3 VBG Total CO2 VBG O2 Saturation VBG Base Excess FiO2 % Sodium 140 Potassium 3.9 Chloride 108 H Carbon Dioxide 24 BUN 12 Creatinine 0.95 Estimated GFR > 60 BUN/Creatinine Ratio 12.6 Glucose 108 H Calcium 9.2 Magnesium Total Bilirubin AST ALT Alkaline Phosphatase Total Creatine Kinase 103 Troponin I 0.037 H 0.043 H NT-Pro-B Natriuret Pep Total Protein Albumin Globulin Albumin/Globulin Ratio Lipase Nasal Screen MRSA (PCR) Not detected [facility] Medical History Heart attack (04/09/05) Fatigue Hiatal hernia Iron deficiency anemia Lumbar spinal stenosis Obesity (BMI 30-39.9) Insomnia Melanoma (~10/2018) Vision disorder Chicken pox Diverticular disease Coronary artery disease (~2004) Surgical History Hx of tonsillectomy H/O hernia repair S/P angioplasty Ankle pain (~2009) Colon polyps Family History Father No problems noted. Mother No problems noted. Sister No problems noted. Social History marital status: household members: spouse lives independently: Yes occupational status: previously employed Smoking Status: Current every day smoker alcohol intake: current substance use type: does not use Assessment & Plan Assessment & Plan narrative: 1. Possible first episodes of seizure. It was reported that the patient had a tonic-clonic seizure. The patient also had a history since December 2024 of recurrence syncope. However extensive cardiac and neuro workup as outpatient as described by H&P are negative so far. Patient had a loading dose of Keppra IV 2 g in the ER. Neurology was called by her ER physician who recommend that we can safely admit the patient here and to monitor patient for recurrent signs of seizure overnight. Recommend to get a brain MRI in the morning. 2. Recurrent syncope. As discussed above. Extensive workup has been negative so far. Patient currently has a cardiac event loop recorder placed yesterday. Will continue to monitor. Patient syncope could be related to seizure rather than cardiac but it is unclear at this time. 3. Mild hypokalemia. potassium 3.2. Replace and monitor. 4. Coronary Artery disease. Again troponins been negative x 2. Will continue to monitor for now. Resume home cardiac medication. 5. Postictal confusion. Will monitor patient mental status. Patient has no sign of infection. CT head is negative. Patient confusion is improving per the patient's who was at the bedside. 6. Hyperlipidemia. Resume home statin. 7. Hypertension. Monitor blood pressure and resume home medication accordingly. 8. Depression. Resume home antidepressant once medication is reconciled morning. PLAN: -confirm whether or not his loop recorder is MRI compatible with [facility]. He was followed by [facility]. -continue Keppra 500 b.i.d.. Anticipate discharge on this orally. He does have a neurology appointment scheduled for June at [facility]. This may not be an inappropriate interval to see if his episodes improve in terms of frequency while on Keppra. -he will require a 2nd midnight of care to further monitor his clinical status, and telemetry. We will also be washing for evidence of recurrent seizure activity. -Monitor K MEENA: 04/09. DVT prophylaxis SCDs due to observational status. CODE STATUS full code. Disposition likely home in 1 to 2 days Time-Based Coding :: [TOTAL MINUTES] spent with patient and on the chart (including review of chart, obtaining history, exam, reviewing outside data, placing orders, documenting exam and treatment plan, and counseling patient) on [DATE]. Quality VTE Deep Vein Thrombosis/Pulmonary Embolism Present on Admission: No
[2025-04-08] MEDS: CLOPIDOGREL 75 MG TABLET PO (09:03)
[2025-04-08] MEDS: FLUoxetine 10 MG CAPSULE PO (09:04)
[2025-04-08] MEDS: PANTOPRAZOLE DR 40 MG TABLET PO (09:04)
[2025-04-08] MEDS: ISOSORBIDE MONONITRATE ER 30 MG TABLET PO (09:04)
[2025-04-08] MEDS: ENOXAPARIN 40 MG/0.4 ML SYRINGE SUBCUT (09:04)
[2025-04-08] MEDS: ASPIRIN EC 81 MG TABLET PO (09:04)
[2025-04-08] MEDS: RANOLAZINE 500 MG TAB.ER.12H PO ×2 (09:04→21:10)
--- NOTE | 2025-04-08 11:25 | PT.IIE ---
Surgical History (Last Reviewed 04/08/25 @ 08:01 by Antony Reese MD) Ankle pain (~2009) Colon polyps H/O hernia repair Hx of tonsillectomy S/P angioplasty Medical History (Last Reviewed 04/08/25 @ 08:01 by Antony Reese MD) Chicken pox Coronary artery disease (~2004) Diverticular disease Fatigue Heart attack (04/09/05) Hiatal hernia Insomnia Iron deficiency anemia Lumbar spinal stenosis Melanoma (~10/2018) Obesity (BMI 30-39.9) Vision disorder Physical Therapy Inpatient Evaluation/Re-Eval M1 PT/OT-IP Prior Functional Status Start: 04/08/25 12:34 Freq: NEEDED Status: Active Protocol: Document 04/08/25 11:25 AB (Rec: 04/08/25 12:48 AB [id number]) Medical Review Prior Functional Status Medical History Yes Reviewed Communication able to make needs known Mobility and Gait pt stated that he was independent with all mobilities and ambulation without AD Social History Household Members spouse Living Arrangements House Number of Floors ( Two Floors Floors) Number of Stairs To 6 steps B rails to enter the house Enter/Railing? has 16 steps B rails to bedroom level Home Environment Standard Height Toilet,Walk in Shower Home Equipment Hand Held Shower Additional Social pt has an adjustable bed History Comment M2 PT-IP Current Condition Start: 04/08/25 12:34 Freq: NEEDED Status: Active Protocol: Document 04/08/25 11:25 AB (Rec: 04/08/25 12:48 AB [id number]) Physical Therapy Current Condition Current Condition Evaluation Date 04/08/25 Treatment Diagnosis seizure; difficulty in walking Onset Date 04/07/25 M3 PT-IP Subjective Start: 04/08/25 12:34 Freq: NEEDED Status: Active Protocol: Document 04/08/25 11:25 AB (Rec: 04/08/25 12:48 AB [id number]) Subjective Physical Therapy Visit Type Type Initial Evaluation Visit Start Time 11:25 Visit Stop Time 12:00 Number of REPORTS ANALYSIS MANAGER Visits 0 Physical Therapy Visit Comments Patient Comments agreeable to do PT; requested to use the toilet Therapy Pain Assessment Pain Present Pain Present Denied Pain M4 PT-IP Mobility and Gait Start: 04/08/25 12:34 Freq: NEEDED Status: Active Protocol: Document 04/08/25 11:25 AB (Rec: 04/08/25 12:48 AB [id number]) PT-Bed Mobility Assessment Supine to Sit Supine to Sit Independent PT-Transfer Assessment Sit to and From Stand Sit to and from Standby Assistance Stand Equipment Transfer Assistive None,Gait Belt Device Orthotic/Prosthetic No Devices or Brace: Transfers Transfer Destination Toilet Transfer Technique ambulated Transfer Ability Level of Assist Standby Assistance,1 Person Assistance,Use of Upper Extremities Comments Mobility Comments pt in bed and spouse in room. pt agreed to do PT and requested to use the toilet. obtained PLOF and home set up. BP in supine: 122/70 O2 sat at RA: 96%. pt completed supine to sit mod I. sit to stand SBA and ambulated to the toilet SBA. presents with unsteady gait. OT assisted pt with toileting needs. pt agreed to ambulate in the hallway ~ 250 ft without AD. presents with antalgic gait with increase lateral trunk lean to the R with slight LOB x 1 but was able to recover without needing assistance. pt completed up/ down stairs using B rails SBA with step through pattern . pt ambulated back to his room SBA and sat on the chair. positioned pt on the chair. call light and table placed within reach. informed pt and spouse that no further PT needs in the hospital at this time and both agreed. informed nurse. Gait Assessment Gait Gait Assistance Standby Assistance Required: Distance (Feet) 250 Able to Maintain Yes Weight Bearing Status During Gait Assistive Devices Assistive Device None,Gait Belt Orthotic/Prosthetic No Devices or Brace: Gait Deviations General Gait Pattern Antalgic Factors Limiting Gait Function Factors Limiting Decreased Activity Tolerance Gait Function Stair Climbing Assessment Evaluation Level of Assist On Standby Assistance Stairs Devices Stair Climbing Left Railing,Right Railing Assistive Devices Technique/Endurance Stair Climbing Ascend and Descend Direction Stair Climbing Step Over Step Technique Number of Steps 3 Climbed Query Text: Stair Climbing Set # 1 Repetitions (reps) PT-Balance Assessment Sitting Balance and Reactions Static Sitting Normal Balance Ability Dynamic Sitting Normal Balance Ability Standing Balance and Reactions Static Standing Normal Balance Ability Dynamic Standing Good Balance Ability Device Used without AD M5 PT-IP Objective Assessments Start: 04/08/25 12:34 Freq: NEEDED Status: Active Protocol: Document 04/08/25 11:25 AB (Rec: 04/08/25 12:48 AB [id number]) Orientation Orientation/Cognition Level of Alertness Alert Orientation Name,Place,Situation Safety Awareness Decreased Safety Awareness Memory Description Short Term Impaired Gross Range of Motion Lower Extremity ROM Assessment Within Functional Limits Strength Lower Extremity Strength Assessment Left Impaired Hip 4-/5 Knee 4/5 Coordination Assessment Gross Coordination Gross Coordination WNL Sensation Assessment Sensation Gross Sensation WNL Muscle Tone Muscle Tone WNL Yes M6 PT-IP Treatment Start: 04/08/25 12:34 Freq: NEEDED Status: Active Protocol: Document 04/08/25 11:25 AB (Rec: 04/08/25 12:48 AB [id number]) Physical Therapy Treatment Education Education Provided Safety M7 PT-IP Assessment and Plan Start: 04/08/25 12:34 Freq: NEEDED Status: Active Protocol: Document 04/08/25 11:25 AB (Rec: 04/08/25 12:48 AB [id number]) PT Summary Assessment and Plan Potential Rehabilitation Good Potential Status of Condition Stable at Evaluation Summary Impairments Strength,Balance,Gait Assessment Summary pt is a 74 y/o M who is admitted for seizures. pt requiring SBA with transfers and ambulation without AD. SBA provided for safety. pt plans to go home with spouse to assist. No further PT needs at this time. pt may go home when medically stable. Goals Bed Mobility Goal Independent Transfer Goal Independent Gait Goal Independent Gait Distance 250 Other Goals up/down 16 steps B rails mod I Days to Meet Goals 1 Frequency of Treatment Frequency Of Discharge Treatment Treatment Plan Physical Therapy Bed Mobility Training,Transfer Training,Gait Training, Treatment Plan Therapeutic Exercise,Balance Retraining,Discharge Planning,Hot or Cold Pack,Neuromuscular Re-ed, Coordination Retraining Precautions Other Precautions seizure Recommendations To Nursing Amount of Assist Standby Assistance Needed Discharge Recommendations PT Discharge Home with Assistance,Outpatient PT Recommendations Transportation Needs Private Vehicle at Discharge - PT assist 1
--- NOTE | 2025-04-08 12:55 | OT.IP.EVAL ---
Past Medical History (Last Reviewed 04/08/25 @ 08:01 by Antony Reese MD) Chicken pox Coronary artery disease (~2004) Diverticular disease Fatigue Heart attack (04/09/05) Hiatal hernia Insomnia Iron deficiency anemia Lumbar spinal stenosis Melanoma (~10/2018) Obesity (BMI 30-39.9) Vision disorder Surgical History (Last Reviewed 04/08/25 @ 08:01 by Antony Reese MD) Ankle pain (~2009) Colon polyps H/O hernia repair Hx of tonsillectomy S/P angioplasty Occupational Therapy Inpatient Evaluation/Re-Eval M1 PT/OT-IP Prior Functional Status Start: 04/08/25 12:34 Freq: NEEDED Status: Active Protocol: Document 04/08/25 11:25 AB (Rec: 04/08/25 12:48 AB [id number]) Medical Review Prior Functional Status Medical History Yes Reviewed Communication able to make needs known Mobility and Gait pt stated that he was independent with all mobilities and ambulation without AD Social History Household Members spouse Living Arrangements House Number of Floors ( Two Floors Floors) Number of Stairs To 6 steps B rails to enter the house Enter/Railing? has 16 steps B rails to bedroom level Home Environment Standard Height Toilet,Walk in Shower Home Equipment Hand Held Shower Additional Social pt has an adjustable bed History Comment M1 PT/OT-IP Prior Functional Status Start: 04/08/25 12:41 Freq: NEEDED Status: Active Protocol: Document 04/08/25 12:30 SOHAIL (Rec: 04/08/25 12:55 SOHAIL Desktop) Medical Review Prior Functional Status Medical History Yes Reviewed Communication pt able to make needs known Mobility and Gait pt amb with AD in home and for at least 1 mile walks 3 times a week Activities of Daily pt was I with BADLs, medication mgmt, caring for dog, Living and IADL's assisting in housework, and driving Social History Household Members spouse Living Arrangements House Number of Floors ( Two Floors Floors) Number of Stairs To Bedroom is upstairs, 16 steps B rails Enter/Railing? House entrance has 6 steps and B rails Home Environment Standard Height Toilet,Walk in Shower Home Equipment Straight Cane Employment Status Retired Additional Social Pt has adjustable bed. History Comment M2 OT-IP Current Condition Start: 04/08/25 12:41 Freq: Status: Active Protocol: Document 04/08/25 12:30 SOHAIL (Rec: 04/08/25 12:55 [facility]) Occupational Therapy Current Condition Current Condition Evaluation Date 04/08/25 Treatment Diagnosis seizure Diagnosis Onset Date 04/07/25 M3 OT- IP Subjective and Pain Start: 04/08/25 12:41 Freq: Status: Active Protocol: Document 04/08/25 12:30 [facility] (Rec: 04/08/25 12:55 [facility] OT- Subjective Occupational Therapy Visit Type Type Initial Evaluation Visit Start Time 11:25 Visit Stop Time 12:00 Notes Pt reclined in bed with spouse present and agreeable to participating in OT eval Occupational Therapy Visit Comments Patient Comments I want to go home. OT Pain Assessment Pain When Pain Assessed At Rest Pain Present Pain Present Pain Reported Location Left Upper Leg Intensity 4 Scale Used Numeric (0 - 10) M4 OT- IP ADL's Start: 04/08/25 12:41 Freq: Status: Active Protocol: Document 04/08/25 12:30 FRIDALUAN (Rec: 04/08/25 12:55 [facility]) OT CIU-Acnu-Matapmi General Evaluation Self-Feeding Ability Independent Comments OT Self-Feeding pt demonstrates drinking coffee I Comments OT ADL-Grooming Comments OT Grooming Comments Pt washes his hands sink side I'ly. Pt declines other grooming tasks. OT ADL-Oral Care Comments Oral Care Comments pt declines OT ADL-Dressing General Eval Upper Body Dressing Independent Ability Lower Body Dressing Independent Ability Comments OT Dressing Comments Pt donned B socks while EOB I. Pt later doffed B socks I'ly to don shoes I. Pt manages underwear I. OT ADL-Toileting General Evaluation Toileting Ability Independent Devices Toileting Assistive Commode Devices Comments OT Toileting Pt sits on commode to void. I with clothing mgmt and Comments hygiene OT ADL-Bathing Comments OT Bathing Comments pt declined M5 OT- IP IADL's Start: 04/08/25 12:41 Freq: Status: Active Protocol: Document 04/08/25 12:30 SOHAIL (Rec: 04/08/25 12:55 [facility] Desktop) OT-Instrumental Activities of Daily Living Deficits IADL Deficits No Deficits Identified Home Safety Awareness Awareness of Need Good Awareness for Assistance at Home Medication Management Medication No Deficits Identified Management Money Management Money Management No Deficits Identified Meal Preparation Meal Preparation No Deficits Identified Logistics Assistant Logistics Assistant No Deficits Identified Driving Driving Caregiver Provides Assist M6 OT- IP Functional Cognition Start: 04/08/25 12:41 Freq: Status: Active Protocol: Document 04/08/25 12:30 [facility] (Rec: 04/08/25 12:55 [facility]) Cognitive Factors Limiting Selfcare Function Cognitive Ability Level of Alertness Alert Patient Orientation Name,Age,Birthday,Month,Date,Year,Day of Week,Place, Situation Attention Span Capable of Focused Attention,Capable of Sustained Ability Attention Ability to Follow Able to Follow One Step Commands,Able to Follow Multi- Commands Step Commands Memory Description No Deficits Noted Safety Awareness No Deficits Noted Problem Solving No deficits Noted Ability Executive Function No Deficits Noted Ability Abstract Thinking No Deficits Noted Ability OT- Vision and Hearing OT- Hearing Assessment OT- Hearing WFL Assessment OT- Vision Assessment Visual Acuity WFL,Glasses All The Time M7 OT- IP Mobility and Balance Start: 04/08/25 12:41 Freq: Status: Active Protocol: Document 04/08/25 12:30 [facility] (Rec: 04/08/25 12:55 [facility]) OT- Bed Mobility Assessment Supine to Sit Supine to Sit Assist Independent OT-Transfer Assessment Sit to and From Stand Sit to and from Independent Stand Transfers Transfer Ability Independent Technique Transfer Destination Chair,Toilet Transfer Technique Stand Step Pivot Devices Transfer Assistive None,Gait Belt Devices Comments Mobility Comments See PT eval for additional details. OT- Gait Assessment Gait Gait Assistance Independent Required: Distance (Feet) 15 Assistive Devices Assistive Device Gait Belt Comments Gait Ability Pt amb throughout room for toileting, sink side hand Comments hygiene, and to t/f to chair. Pt able to self correct LOB. See PT eval for additional details. OT- Balance Assessment Sitting Balance and Reactions Static Sitting Normal Balance Ability Dynamic Sitting Good Balance Ability Standing Balance and Reactions Static Standing Normal Balance Ability Dynamic Standing Good Balance Ability M8 OT- IP Objective Assessments Start: 04/08/25 12:41 Freq: Status: Active Protocol: Document 04/08/25 12:30 [facility] (Rec: 04/08/25 12:55 SOHAIL Kramer) OT Gross Range of Motion Upper Extremity Range of Motion Assessment Within Functional Limits OT Strength Upper Extremity Strength Assessment Within Functional Limits Hand Physicist Acoustics Strength Hand Dominance Right Comments Strength Comments 5/5 overall UE strength OT-Muscle Tone Assessment Muscle Tone WNL Yes OT Sensation Assessment Edema Edema Absent M9 OT- IP Assessment and Plan Start: 04/08/25 12:41 Freq: Status: Active Protocol: Document 04/08/25 12:30 SOHAIL (Rec: 04/08/25 12:55 SOHAIL Kramer) OT Summary Assessment and Plan Summary OT Impairments Pain Progress Towards Goals Met Goals Assessment Summary Pt is 74 yo M who presented to the ED on 04/07/25 after his found him in the recliner and noted that he was having a seizure with UE and LE shaking for approximately 5 minutes. At time of eval, pt demonstrates I with BADL, I with functional t/f to toilet, I with sink side ADLS, and normal UE AROM and strength. With respect to the skilled OT scope of practice, pt is functioning at his base line. Skilled OT services are not indicated at this time. D/C OT order. Frequency of Treatment Frequency Of Discharge Treatment Discharge Recommendations OT Discharge Home Recommendations Transportation Needs Private Vehicle at Discharge
--- NOTE | 2025-04-08 18:49 | PC.NURSE ---
PT A/OX4. STILL UNABLE TO RECALL SEIZURE EVENT. ON/ OFF 2L NC, USED ESPECIALLY WHEN SLEEPING. PASSED BEDSIDE SWALLOW THIS MORNING. PT ABLE TO REST TODAY. UP TO CHAIR MULTIPLE TIMES. WORKED WITH PHY THERAPY WHO SIGNED OFF. WALKED AROUND UNIT WITH . PLAN FOR MRI TOMORROW PER DR JORDAN. PER DR. JORDAN, PATIENT'S SALES OPERATIONS CONSULTANT STATES LOOP RECORDER IS OK FOR MRI. 1848: Interrogation completed by AMANDO Moy. States information has been sent.
[2025-04-08] MEDS: ATORVASTATIN 20 MG TABLET 40 MG PO (21:09)
[2025-04-09] VITALS: BP 146/71; PULSE 54; RESP 18; TEMP 36.7; O2SAT 99
[2025-04-09 04:00] VITALS: BP 133/76; RESP 20; TEMP 36.4; O2SAT 97
[2025-04-09 05:06] LABS: Hematocrit 44.6 % (41-53); Hemoglobin 14.8 g/dL (13.5-17.5); Mean Corpuscular HGB Conc 33.1 % (30-36); Mean Corpuscular Hemoglobin 28.8 PG (26-34); Mean Corpuscular Volume 87.1 fL (80-100); Platelet Count 115 X10^3/uL (150-400)
[2025-04-09 05:13] LABS: Blood Urea Nitrogen 13 mg/dL (9-20); Calcium 9.0 mg/dL (8.4-10.2); Carbon Dioxide 24 mmol/L (22-32); Chloride 110 mmol/L (98-107); Estimated Glomerular Filt Rate > 60 mL/min (>60); Glucose 83 mg/dL (70-99); HEMOLYSIS < 15 (0-50); Potassium 3.6 mmol/L (3.4-5.1); Sodium 139 mmol/L (137-145)
--- NOTE | 2025-04-09 07:24 | P.PN_ITS ---
Subjective Subjective Date Patient Seen: 04/09/25 Time Patient Seen: 10:29 Exam Vital Signs (past 8 hours): - 04/09/25 00:00 04/09/25 04:00 Temperature 98.0 F 97.6 F Pulse Rate 54 L Respiratory Rate 18 20 Blood Pressure 146/71 H 133/76 Pulse Oximetry 99 97 Oxygen Delivery Method Room Air,Nasal Cannula Oxygen Flow Rate 2 Objective Labs 04/09/25 04:10 04/09/25 04:10 Labs: Laboratory Results - last 24 hr 04/09/25 04:10 WBC 6.0 RBC 5.12 Hgb 14.8 Hct 44.6 MCV 87.1 MCH 28.8 MCHC 33.1 RDW 16.9 H Plt Count 115 L Sodium 139 Potassium 3.6 Chloride 110 H Carbon Dioxide 24 BUN 13 Creatinine 0.93 Estimated GFR > 60 BUN/Creatinine Ratio 14.0 Glucose 83 Calcium 9.0 PFSH Medical History Heart attack (04/09/05) Fatigue Hiatal hernia Iron deficiency anemia Lumbar spinal stenosis Obesity (BMI 30-39.9) Insomnia Melanoma (~10/2018) Vision disorder Chicken pox Diverticular disease Coronary artery disease (~2004) Surgical History Hx of tonsillectomy H/O hernia repair S/P angioplasty Ankle pain (~2009) Colon polyps Family History Father No problems noted. Mother No problems noted. Sister No problems noted. Social History marital status: household members: spouse lives independently: Yes occupational status: previously employed Smoking Status: Current every day smoker alcohol intake: current substance use type: does not use Assessment & Plan Assessment & Plan narrative: 1. Possible first episodes of seizure. It was reported that the patient had a tonic-clonic seizure. The patient also had a history since December 2024 of recurrence syncope. However extensive cardiac and neuro workup as outpatient as described by H&P are negative so far. Patient had a loading dose of Keppra IV 2 g in the ER. Neurology was called by her ER physician who recommend that we can safely admit the patient here and to monitor patient for recurrent signs of seizure overnight. Recommend to get a brain MRI in the morning. 2. Recurrent syncope. As discussed above. Extensive workup has been negative so far. Patient currently has a cardiac event loop recorder placed yesterday. Will continue to monitor. Patient syncope could be related to seizure rather than cardiac but it is unclear at this time. 3. Mild hypokalemia. potassium 3.2. Replace and monitor. 4. Coronary Artery disease. Again troponins been negative x 2. Will continue to monitor for now. Resume home cardiac medication. 5. Postictal confusion. Will monitor patient mental status. Patient has no sign of infection. CT head is negative. Patient confusion is improving per the patient's who was at the bedside. 6. Hyperlipidemia. Resume home statin. 7. Hypertension. Monitor blood pressure and resume home medication accordingly. 8. Depression. Resume home antidepressant once medication is reconciled morning. PLAN: -confirm whether or not his loop recorder is MRI compatible with [facility]. He was followed by [facility]. -continue Keppra 500 b.i.d.. Anticipate discharge on this orally. He does have a neurology appointment scheduled for June at [facility]. This may not be an inappropriate interval to see if his episodes improve in terms of frequency while on Keppra. -he will require a 2nd midnight of care to further monitor his clinical status, and telemetry. We will also be washing for evidence of recurrent seizure activity. -Monitor K MEENA: 04/09. DVT prophylaxis SCDs due to observational status. CODE STATUS full code. Disposition likely home in 1 to 2 days Time-Based Coding :: [TOTAL MINUTES] spent with patient and on the chart (including review of chart, obtaining history, exam, reviewing outside data, placing orders, documenting exam and treatment plan, and counseling patient) on [DATE]. Quality VTE Deep Vein Thrombosis/Pulmonary Embolism Present on Admission: No
[2025-04-09 08:00] VITALS: BP 133/85; PULSE 60; RESP 19; TEMP 36.6; O2SAT 98
[2025-04-09] MEDS: PANTOPRAZOLE DR 40 MG TABLET PO (08:15)
[2025-04-09] MEDS: FLUoxetine 10 MG CAPSULE PO (08:15)
[2025-04-09] MEDS: ASPIRIN EC 81 MG TABLET PO (08:15)
[2025-04-09] MEDS: RANOLAZINE 500 MG TAB.ER.12H PO (08:15)
[2025-04-09] MEDS: CLOPIDOGREL 75 MG TABLET PO (08:15)
[2025-04-09] MEDS: ISOSORBIDE MONONITRATE ER 30 MG TABLET PO (08:15)
[2025-04-09] MEDS: ENOXAPARIN 40 MG/0.4 ML SYRINGE SUBCUT (08:16)
[2025-04-09 10:10] LABS: Troponin I < 0.012 ng/mL (0.01-0.034)
[2025-04-09 12:00] VITALS: BP 132/78; PULSE 60; RESP 19; TEMP 36.6; O2SAT 97
--- NOTE | 2025-04-09 12:19 | P.DS_ITS ---
History of Present Illness History of Present Illness Date Patient Seen: 04/09/25 Time Patient Seen: 12:19 Chief complaint: Seizure/AMS/Unresponsive Narrative: History of Present Illness History of Present Illness Chief complaint: Seizure/AMS/Unresponsive Narrative: 74-year-old male with past medical history of coronary disease status post stents, hyperlipidemia, hypertension, GERD and depression presents with seizure. Of note the patient still has some mild confusion and unable to give a reliable history. Per the patient's , who is at the bedside, the patient has been having recurrent syncopal episodes since December 2024. The patient did have extensive outpatient workup including echocardiogram, CT head and neck, brain MRI ambulatory cardiac catheterization technologist and a recent long-term loop recorder that was placed yesterday by a local shell mold bonding machine operator Dr. Lo. Today, the patient woke up feeling unwell and around 3 PM while in the recliner the patient saw that the patient had a tonic-clonic seizure. Per report the patient never had prior history of seizure activity. Prior to arriving to our ER at the seizure/shaking stopped on its own. There is no report of any focal weakness though there was some confusion postictal. Otherwise there is no report of any recent fever, chills, nausea, vomiting, diarrhea, chest pain, palpitation or shortness of breath. In our emergency room, the patient was seen dynamically stable. However the patient did require 2 L of oxygen per nasal cannula. Chest x-ray and CT angio of the chest shows no signs of PE pneumonia or PE respectively. Labs were relatively benign except for a potassium of 3.2. Troponin were negative x 2. BNP 855. Again EKG shows no signs of arrhythmia or signs of acute ischemia. CT head without contrast also was negative. Patient was nonfocal on exam but was somewhat confused and only was oriented to self and place but not the date. The patient did have a loading dose of Keppra 2 g IV. Neurology was consulted over the phone and recommended that we admit the patient for observation overnight and to monitor for any recurrent seizure activity. Also to obtain brain MRI in the morning. Note, per ER physician discussion with neurologist bail bondsman: [facility] Neurology on-call Dr. Paiz, agrees with IV Keppra load for now, feels the patient can be managed here, understands hypoxia concern for further evaluation, negative for aspiration on imaging, negative for PE end gross fluid overload. Recommends patient have MRI brain without contrast and with contrast in the morning. Can give oral Keppra 500 mg in the morning. If MRI negative then with first-time seizure patient might not necessarily need further Keppra for discharge. If MRI can not be obtained tomorrow then she recommends patient be continued on Keppra as an outpatient, and have outpatient EEG evaluation. Discharge Providers Provider Date of admission: 04/07/25 22:30 Discharge Date: 04/09/25 Primary care physician: Kathryn Weinstein, Consults: 04/07/25 21:30 Consult to Occupational Therapy Evaluate & Treat Comment: Physician Instructions: Evaluate and treat Consult to Physical Therapy Evaluate & Treat Comment: Physician Instructions: Evaluate and Treat 04/07/25 21:32 Consult to Speech Therapy Evaluate & Treat Comment: brenton muller Physician Instructions: Evaluate and treat Discharge provider: Deon Hunt MD Summary Hospital Course Hospital Course: 1. Possible first episodes of seizure. It was reported that the patient had a tonic-clonic seizure. The patient also had a history since December 2024 of recurrent syncope. However extensive cardiac workup as outpatient as described by H&P are negative so far. Patient had a loading dose of Keppra IV 2 g in the ER. Neurology was called by her ER physician who recommend that we can safely admit the patient here and to monitor patient for recurrent signs of seizure overnight. Recommend to get a brain MRI in the morning. 2. Recurrent syncope. Extensive workup has been negative so far. Patient currently has a cardiac event loop recorder placed yesterday. Will continue to monitor. Patient syncope could be related to seizure rather than cardiac but it is unclear at this time. 3. Mild hypokalemia. potassium 3.2. Replaced 4. Coronary Artery disease. 5. Postictal confusion. Resolved. 6. Hyperlipidemia. 7. Hypertension. 8. Depression/Anxiety. PLAN: -Loop recorder was MRI compatible so an MRI Brain was done on the day of discharge. It was normal. Suggested one more night of observation on Keppra but he declined. -continue Keppra 500 b.i.d. He does have a neurology appointment scheduled for June at [facility]. Recommend PCP order an EEG while waiting for the Consult. His points out that he took buspirone 5 mg, for the 1st time, the night before this occurred. That is not a common cause of seizures but will be held due to the temporal relationship. The possibility of partial seizures leading to a generalized seizure in the context of his previous neurological episodes is discussed. An EEG is recommended. Continuation of Keppra 500 mg b.i.d. until seen by Neurology is recommended. I advised him to stay 1 more night for observation on the Keppra but he declined. He appears to be quite hyper anxious but his significant postictal appearance and amnesia about all events since his loop monitor implantation a few days a few days ago, suggests that this was not a psychogenic nonepileptic seizure, despite the anxiety relationship. Alcohol withdrawal was considered but he states, without contradiction from family that his alcohol intake is only 1-2 beers per day and that he has gone for up to 4 days in a row without experiencing any withdrawal or seizures in the past. CODE STATUS full code. Status at Discharge Cognitive/behavioral status at discharge: at baseline, oriented Functional status at discharge: independent ambulation Overall status at discharge: patient is back to baseline Exam Vital Signs (past 8 hours): - 04/09/25 07:00 04/09/25 08:00 Temperature 97.9 F Pulse Rate 60 Respiratory Rate 19 Blood Pressure 133/85 Pulse Oximetry 98 Oxygen Delivery Method Room Air Oxygen Delivery Method Room Air Oxygen Flow Rate 2 Narrative Exam Narrative: Alert and oriented x3. Appears to be in mild anxiety related distress. Heart is regular rate and rhythm without murmur Lungs are clear to auscultation bilaterally Extremities have no ankle edema Neuro exam cranial nerves 2-12 test intact. Reflexes are symmetric. There is no tremor. Motor function is 5/5 throughout. The patient appears to be hyper anxious. Objective Labs 04/09/25 04:10 04/09/25 04:10 Labs: Laboratory Results - last 24 hr 04/09/25 04:10 WBC 6.0 RBC 5.12 Hgb 14.8 Hct 44.6 MCV 87.1 MCH 28.8 MCHC 33.1 RDW 16.9 H Plt Count 115 L Sodium 139 Potassium 3.6 Chloride 110 H Carbon Dioxide 24 BUN 13 Creatinine 0.93 Estimated GFR > 60 BUN/Creatinine Ratio 14.0 Glucose 83 Calcium 9.0 Troponin I < 0.012 [facility] Medical History Heart attack (04/09/05) Fatigue Hiatal hernia Iron deficiency anemia Lumbar spinal stenosis Obesity (BMI 30-39.9) Insomnia Melanoma (~10/2018) Vision disorder Chicken pox Diverticular disease Coronary artery disease (~2004) Surgical History Hx of tonsillectomy H/O hernia repair S/P angioplasty Ankle pain (~2009) Colon polyps Family History Father No problems noted. Mother No problems noted. Sister No problems noted. Social History marital status: household members: spouse lives independently: Yes occupational status: previously employed Smoking Status: Current every day smoker alcohol intake: current substance use type: does not use Discharge Plan Discharge Plan Patient Disposition: Home Provider Discharge Comment: Followup with Dr. Weinstein and ask about ordering an EEG before your neurology appointment in June. Discharge orders & Medications Prescriptions: New levetiracetam 250 mg Tablet 500 mg PO BID Qty: 120 0RF Continued cetirizine [Zyrtec] 10 mg tablet 10 mg PO DAILY PRN (Reason: Allergy Symptoms) nitroglycerin 0.4 mg tablet, sublingual 0.4 mg sublingual Q5-15M PRN (Reason: Chest Pain) Rx Instructions: do not exceed 3 doses per episode aspirin [Adult Low Dose Aspirin] 81 mg tablet,delayed release (DR/EC) 81 mg PO DAILY atorvastatin 40 mg tablet 40 mg PO BEDTIME Qty: 90 3RF clopidogrel [Plavix] 75 mg tablet 75 mg PO DAILY Qty: 90 0RF Trelegy Ellipta 100-62.5-25 mcg blister with device 1 inh inhalation DAILY Qty: 90 3RF Rx Instructions: [facility] Fax: fluoxetine 10 mg capsule 10 mg PO DAILY Qty: 90 0RF hydrocodone-acetaminophen 5-325 mg tablet 1 tab PO Q8H PRN (Reason: pain) Qty: 15 0RF Patient Comments: RARELY TAKES PER ranolazine 500 mg tablet extended release 12 hr 500 mg PO BID ondansetron 4 mg tablet,disintegrating 4 mg PO TID PRN (Reason: nausea and vomiting) Qty: 30 1RF lisinopril 5 mg tablet 5 mg PO DAILY Qty: 90 1RF isosorbide dinitrate 20 mg tablet 20 mg PO BID Qty: 180 1RF pantoprazole 40 mg tablet,delayed release (DR/EC) 40 mg PO DAILY multivitamin Tablet 1 tab PO DAILY Glucosamine Chondroitin 1,200 mg tablet 1,200 mg PO BID Discontinued buspirone 5 mg tablet 5 mg PO .nightly PRN (Reason: insomnia) Qty: 30 0RF Follow up/Referrals: Kathryn Weinstein DO [Primary Care Provider, Family Practice] Diet/Activity/Treatments Diet: Regular Visit Report/Discharge Packet Stand Alone Forms: Patient Portal/API, Stroke Signs & Symptoms Discharge Data Primary Care Provider: Kathryn Weinstein Attending Provider: Marcelo Wilson Admit Date/Time: 04/07/25 22:30 Quality VTE Deep Vein Thrombosis/Pulmonary Embolism Present on Admission: No
--- NOTE | 2025-04-09 13:14 | PC.NURSE ---
Discharge instructions given to pt and spouse. Pt and spouse took all belongings. Pt wheeled to vehicle by hospital staff.
--- NOTE | 2025-04-09 13:21 | CM.DANOTE ---
DCP Assessment Note pt is a 74yo M admitted after recurrent syncopal episodes. provider believes likely due to new onset seizure disorder PCP Js [place] medicare and regence. SECURITY REPRESENTATIVE reviewed EMR per provider in morning rounds, pt to dc later today with new med. rec sooner f/u with PCP/neurology. rec EEG. SECURITY REPRESENTATIVE met with pt and spouse in room. pt confirms lives indep in [place] with spouse. no DME. ambulating in hallways with spouse. pt eager to dc home. denies any DCP/CM needs. SECURITY REPRESENTATIVE messaged TCM group P: dc today with spouse support and OP f/u. CM team will continue to follow as needed SANCHO Restrepo Discharge Planning/Care Management CM Discharge Assessment Start: 04/07/25 23:58 Freq: Status: Discharge Protocol: Document 04/09/25 13:20 SL (Rec: 04/09/25 13:21 SL Desktop) Discharge Planning Assessment Assigned Discharge SANCHO Najera Forest[employer] Crew Chief DPOA/Assigned Marvel spouse Designee Name Contact Information [phone] Advance Directives? No Advance Directives No on File History Provided By Patient,Medical Record Prior Living House Arrangements Household Members spouse Type of Drives own vehicle transporation used prior to admit Is patient alert and Yes oriented? Discharge Plan Home Referrals Initiated None needed Review Status In Process Please Provide Date 04/09/25 Initial DC Assessment Was Performed Next Review Type Continued Stay Review
== END 2025-04-09 13:15 | disposition home or self-care (01) | DRG 101 ==
LOC: ED 18:02 → AC 22:50 → ICU 04-08 11:46 → AC 04-11 06:17
PROVIDERS: Emergency Medicine; Family Medicine; Hospitalist; Admitting Provider Internal Medicine; Emergency Provider Emergency Medicine; PCP Family Medicine; Referring Provider Emergency Medicine; Visit Provider Internal Medicine
DX: R56.9 Unspecified convulsions (principal); E87.6 Hypokalemia; I25.10 Atherosclerotic heart disease of native coronary artery without angina pectoris; E78.5 Hyperlipidemia, unspecified; I10 Essential (primary) hypertension; F32.A Depression, unspecified; F17.200 Nicotine dependence, unspecified, uncomplicated; R55 Syncope and collapse; R09.02 Hypoxemia; F41.9 Anxiety disorder, unspecified; K21.9 Gastro-esophageal reflux disease without esophagitis; Z79.02 Long term (current) use of antithrombotics/antiplatelets; Z95.5 Presence of coronary angioplasty implant and graft
CPT/HCPCS: 36415; 70450; 70551; 71045; 71275; 74177; 80048; 80053; 82550; 82805; 83690; 83735; 83880; 84484; 85025; 85027; 85610; 85730; 87797; 93005; 93010; 94640; 96365; 97116; 97161; 97165; 97530; 97535; 99284; 99291; G0378; J1650; J1953; J2405; J7613; Q9967

== ENCOUNTER 2025-08-15 10:53 | Emergency (ER) | payer MEDICARE, OTHER, SELFPAY ==
[2025-04-08 01:14] VITALS: BMI 30.6
[2025-08-15 11:33] VITALS: BP 128/72; PULSE 71; RESP 18; TEMP 36.3; O2SAT 96; BMI 30.2
[2025-08-15 13:47] LABS: Add Manual Diff / Slide Review NO; Hematocrit 50.7 % (41-53); Hemoglobin 17.4 g/dL (13.5-17.5); Lymphocytes Absolute Auto 1000 /uL (1100-4500); Mean Corpuscular HGB Conc 34.2 % (30-36); Mean Corpuscular Hemoglobin 30.4 PG (26-34); Mean Corpuscular Volume 88.8 fL (80-100); Platelet Count 135 X10^3/uL (150-400)
[2025-08-15 13:57] LABS: Acetaminophen < 10 ug/mL (10-30); Alanine Aminotransferase 18 IU/L (<50); Albumin 4.5 g/dL (3.5-5.0); Albumin Globulin Ratio 1.7 (1.0-2.8); Alkaline Phosphatase 93 U/L (38-126); Blood Urea Nitrogen 23 mg/dL (9-20); Calcium 9.7 mg/dL (8.4-10.2); Carbon Dioxide 23 mmol/L (22-32); Chloride 109 mmol/L (98-107); Estimated Glomerular Filt Rate > 60 mL/min (>60); Ethanol (ETOH) < 10 mg/dL (<10); Globulin 2.7 g/dL (1.7-4.1); Glucose 102 mg/dL (70-99); HEMOLYSIS < 15 (0-50); Potassium 3.9 mmol/L (3.4-5.1); Salicylate < 1.0 mg/dL (<20); Sodium 143 mmol/L (137-145); Total Protein 7.2 g/dL (6.3-8.2)
[2025-08-15 14:27] LABS: TSH w/ Reflex to FT4 1.32 uIU/mL (0.47-4.68)
--- NOTE | 2025-08-15 16:39 | CM.SWNOTE ---
ED HARPOONER Assessment Note: HARPOONER - Waste Water Plant Operator Assessment HARPOONER/Waste Water Plant Operator Assessment Time Spent with Patient Start date 08/15/25 Visit Start Time 12:00 End date 08/15/25 Visit End Time 12:15 Total time Care 15 minutes Management spent on patient visit-in minutes Mental Health Screening Include Onset, Duration, Intensity Presenting Problem Patient presents to the ED for Suicidal ideation and MH crisis. Patient explains he has been experiencing increasing suicidal ideation in the last week with plan (hanging) with no intent. Precipitating Event( Patient reports having recent falls and syncopal s) episodes. He has been diagnosed with functional seizure disorder. Patient explains in the last week, he has blacked out and fallen and doesn't remember the episodes. Patient has been logging it with the help of his , who is also at bedside. Patient explains he has been feeling disconnected and lost. He reports his appetite has been nonexistant and he has about 6 hours of consistently interrupted sleep. Patient explains he had an appt with a Neurologist in [place] on 07/21/25. Patient Strengths Patient is supported by his , Marvel. Current Behavioral [facility] - Trisha Estrada MA [facility] (ph# Health Provider(s) [phone]) Include Facility, Provider, Ph. # Psych. Hx Mental Previous dx of depression, fluoxetine (Prozac) Health and Chemical prescription managed by PCP, Dr. Kathryn Suarez, DO Dependency . Family Hx of None reported. Behavioral Abuse Psychiatric None reported. Hospitalizations ( date(s)/location) Psychosocial Patient is a 75yo male, resident of [place] with his information & , Marvel. Support Systems School/Work Retired. Legal Concerns Legal Matters - None reported. Outstanding Issues Mental Status Orientation (Person/ AOx3 Place/Time) Stated Mood Disconnected, Lost Affect (Congruent Dysthymic, congruent with mood. with Mood?) Thought Content - None reported, none identified during assessment. Specify/Describe Obsessions, Delusions, Hallucinations Thought Processes ( Logical, coherent Logical-Coherent- Goal Directed- Detailed-Tangential- Circumstantial- Logical-Disorganized -Thought Blocking) Speech (Normal-Slow- Normal [id number]- Loud-Pressured) Motor (Normal- Normal [id number]-Ryzav ) Insight (Good-Fair- Good Poor/Limited) Judgement (Good-Fair Fair -Poor/Limited) Impulse Control ( Impaired Adequate-Impaired) Memory (Immediate- Impaired, states problems recently with short term Recent-Remote, memory Impaired-Intact) Concentration ( Intacta Intact-Impaired) Attention (Intact- Intact Impaired) Behavior ( Appropriate Appropriate- Inappropriate) Additional Comment Patient is calm, cooperative and communicative during assessment. Risk Assessment Suicidal Ideation ( Yes: Moderate Risk Plan) Homicidal Ideation ( No Plan) Comment [place]-SUICIDE SEVERITY RATING SCALE 1) Have you wished you were or wished you could go to sleep and not wake up? YES 2) Have you actually had any thoughts of killing yourself? YES 3) Have you been thinking about how you might do this? YES; hanging 4) Have you had these thoughts and had some intention of acting on them? NO 5) Have you started to work out or worked out the details of how to kill yourself? Do you intend to carry out this plan? NO 6) Have you ever done anything, started to do anything, or prepared to do anything to end your life? NO If YES, ask: Was this within the past three months? N/A Intervention Intervention Reviewed chart and discussed with ED Provider pt's medical status and discharge needs. ED HARPOONER meets with patient. Patient endorses feeling disconnected with himself and increasingly hopeless due to the attempts at managing new diagnosis of functional seizure disorder. Patient explains they have had minimal appetite and do not have full restful sleep in the last week. Patient explains they came in to the ED today because they were feeling unsafe at home as their suicidal ideations were increasing and constant. Patient is tearful while discussing this with HARPOONER, appearing anxious about current mental status. ED HARPOONER and patient discuss goals of care. Patient explains they are agreeable to receive inpatient behavioral health hospitalization at this time if available. Open to also safety planning with if no available beds. At this time, it is the opinion of this HARPOONER that patient would benefit from inpatient psychiatric hospitalization for SI, crisis and medication stabilization. HARPOONER informs ED provider, Dr. Pizano, who indicates agreement. HARPOONER informs AMANDO Morrison. Plan RA Plan Once patient is medically clear, ED staff will attempt to find inpatient placement for patient. Soledad Reid FREIGHT ASSOCIATE
--- NOTE | 2025-08-15 17:01 | ED.PSYCH ---
HPI - Psych General Chief Complaint: Psychiatric Symptoms Stated Complaint: Per , Falls are causing mental break down Time Seen by Provider: 08/15/25 15:07 Source: patient and family Mode of arrival: Ambulatory History of Present Illness HPI Narrative: 75-year-old gentleman presents to the emergency department with suicidal ideation. He has is had episodes of depression but it seems to be getting worse over the last week. He does have a plan which would include hanging, there are no guns in the home. He presents with his and would like to be considered for voluntary psychiatric admission to help with his acute suicidal ideation. He notes that he had a seizure in April of this year, was admitted to [facility] for 4 days. Brain MRI at that time did not show any abnormalities. He has since followed up with Neurology and had an EEG and has been no diagnosed with functional seizures. He is no longer on his Keppra. He continues with his fluoxetine. The seizure-like episodes that he has are described as ?graying out? and associated with periods of amnesia. He describes no recent fevers or chills. He is seeing a therapist and working with cognitive behavioral therapies. Hughes suicide score = MODERATE risk Related Data Home Medications ?Medication ?Instructions ?Recorded ?Confirmed aspirin 81 mg tablet,delayed 81 mg PO DAILY 09/03/21 06/15/25 release (Adult Low Dose Aspirin) cetirizine 10 mg tablet (Zyrtec) 10 mg PO DAILY PRN Allergy Symptoms 12/03/21 06/15/25 nitroglycerin 0.4 mg sublingual 0.4 mg sublingual Q5-15M PRN Chest 12/03/21 06/15/25 tablet Pain multivitamin 1 tab PO DAILY 11/28/22 06/15/25 ranolazine 500 mg tablet,extended 500 mg PO BID 08/04/23 06/15/25 release,12 hr Glucosamine Chondroitin 1,200 mg PO BID 04/08/25 06/15/25 levetiracetam 500 mg tablet 500 mg PO BID 04/29/25 06/15/25 pantoprazole 40 mg tablet,delayed 40 mg PO DAILY 04/29/25 06/15/25 release Previous Rx's ?Medication ?Instructions ?Recorded atorvastatin 40 mg tablet 40 mg PO BEDTIME #90 tabs 02/02/21 isosorbide dinitrate 20 mg tablet 20 mg PO BID #180 tabs 12/08/23 hydrocodone 5 mg-acetaminophen 325 1 tab PO Q8H PRN pain #15 tabs 04/22/24 mg tablet fluoxetine 10 mg capsule 10 mg PO DAILY #90 caps 03/08/25 ondansetron 4 mg disintegrating 4 mg PO TID PRN nausea and 06/15/25 tablet vomiting #30 tabs fluticasone fur. 100 mcg-umeclid 1 inh inhalation DAILY #90 ea 06/30/25 62.5 mcg-vilant 25 mcg inhalat.powder (Trelegy Ellipta) Allergies Allergy/AdvReac Type Severity Reaction Status Date / Time No Known Drug Allergies Allergy Verified 06/15/25 07:22 Review of Systems Review of Systems Narrative: Pertinent positive and negative findings as per HPI Patient History Medical History Heart attack (04/09/05) Fatigue Hiatal hernia Iron deficiency anemia Lumbar spinal stenosis Obesity (BMI 30-39.9) Insomnia Melanoma (~10/2018) Vision disorder Chicken pox Diverticular disease Coronary artery disease (~2004) Surgical History Hx of tonsillectomy H/O hernia repair S/P angioplasty Ankle pain (~2009) Colon polyps Family History Father No problems noted. Mother No problems noted. Sister No problems noted. Social History marital status: household members: spouse lives independently: Yes occupational status: previously employed Tobacco: How many years used: 22 alcohol intake: current substance use type: marijuana alcohol intake frequency: 0-2 drinks per day Exam Initial Vital Signs Initial Vital Signs: Vital Signs Temperature 97.4 F L 08/15/25 11:33 Pulse Rate 71 08/15/25 11:33 Respiratory Rate 18 08/15/25 11:33 Blood Pressure 128/72 08/15/25 11:33 Pulse Oximetry 96 08/15/25 11:33 Oxygen Delivery Method Room Air 08/15/25 11:33 General: Able to give a complete and coherent history. Well-nourished well-developed HEENT: Moist mucous membranes, normal sclera with reactive pupils, Neck: No JVD, supple Respiratory: Lungs are clear to auscultation, no wheezing no rales no rhonchi. Full and symmetrical air movement Cardiac: Regular rate and rhythm no murmurs no bruits Abdomen: Soft, nontender, no rebound or guarding, no flank pain Skin: Warm and dry, no rashes Neurologic: Grossly neurologically intact with no obvious asymmetries or abnormalities Extremities: No trauma, well perfused Psych: Cooperative, sad, rather flat affect but appropriate thought content, speech fluency and good eye contact Course Orders Ordered: ED Orders 08/15/25 17:18 CT head/brain wo con Stat 08/15/25 19:25 COVID19 -Nasal RAPID Stat Discontinued Medications Acetaminophen (Acetaminophen 325 Mg Tablet) 975 mg PO NOW ONE Stop: 08/15/25 17:02 Last Admin: 08/15/25 17:14 Dose: 975 mg Documented By: EB Vital Signs Vital signs: Vital Signs - 8 hr 08/15/25 20:15 Temperature 99.0 F Pulse Rate 56 L Respiratory Rate 15 Blood Pressure 119/68 Pulse Oximetry 92 Oxygen Delivery Method Room Air MDM - Psych Lab Data 08/15/25 13:40 08/15/25 13:40 Labs: Lab Results 08/15/25 08/15/25 08/15/25 Range/Units 13:40 15:10 19:25 WBC 6.4 (4.5-11.0) X10^3/uL RBC 5.71 (4.5-5.9) X10^6/uL Hgb 17.4 (13.5-17.5) g/dL Hct 50.7 (41-53) % MCV 88.8 (80-100) fL MCH 30.4 (26-34) PG MCHC 34.2 (30-36) % RDW 16.9 H (11.6-14.8) % Plt Count 135 L (150-400) X10^3/uL Neut % (Auto) 71.2 (50-75) % Lymph % (Auto) 15.5 L (25-40) % [place] % (Auto) 10.3 (3-14) % Eos % (Auto) 2.3 (2-4) % Baso % (Auto) 0.7 (0-2) % Neut # (Auto) 4600 (7762-0701) /uL Lymph # (Auto) 1000 L (0695-5551) /uL [place] # (Auto) 700 (0-900) /uL Eos # (Auto) 200 (0-450) /uL Baso # (Auto) 0 (0-100) /uL Sodium 143 (137-145) mmol/L Potassium 3.9 (3.4-5.1) mmol/L Chloride 109 H (98-107) mmol/L Carbon Dioxide 23 (22-32) mmol/L BUN 23 H (9-20) mg/dL Creatinine 1.08 (0.66-1.25) mg/dL Estimated GFR > 60 (>60) mL/min BUN/Creatinine Ratio 21.3 (6-22) Glucose 102 H (70-99) mg/dL Calcium 9.7 (8.4-10.2) mg/dL Total Bilirubin 1.7 H (0.2-1.3) mg/dL AST 22 (17-59) IU/L ALT 18 (<50) IU/L Alkaline Phosphatase 93 (38-126) U/L Total Protein 7.2 (6.3-8.2) g/dL Albumin 4.5 (3.5-5.0) g/dL Globulin 2.7 (1.7-4.1) g/dL Albumin/Globulin Ratio 1.7 (1.0-2.8) TSH 1.32 (0.47-4.68) uIU/mL Salicylates < 1.0 (<20) mg/dL U Opiates 300ng/mL cut Negative (Negative) Ur Oxycodone Screen Negative (Negative) Urine Methadone Screen Negative (Negative) Acetaminophen < 10 (10-30) ug/mL Ur Barbiturates Screen Negative (Negative) U Tricyclic Antidepress Negative (Negative) Ur Phencyclidine Scrn Negative (Negative) Ur Amphetamines Screen Negative (Negative) U Methamphetamines Scrn Negative (Negative) Ur MDMA Scrn (Ecstasy) Negative (Negative) U Benzodiazepines Scrn Negative (Negative) Urine Cocaine Screen Negative (Negative) U Marijuana (THC) Screen Positive H (Negative) Urine pH Normal (Normal) Urine Specific [place] Normal (Normal) Ethyl Alcohol < 10 (<10) mg/dL Ur Creatinine Normal (Normal) SARS-CoV-2 (PCR) Negative (Negative) MDM Narrative Medical decision making narrative: CC: Suicidal ideation, moderate risk category Complicating co-morbidities: Coronary artery disease, 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 Pertinent findings: CBC is unremarkable Chemistries are reassuring. Total bili is at 1.7 which is his baseline TSH is 1.3 Tylenol and aspirin levels are nondetectable Urinalysis shows only marijuana COVID is Independently reviewed EKG: Sinus rhythm at a rate of 70. QTC of 453 Imaging studies He does describe 3 episodes of near-syncope which are consistent with his previous seizure-like activity. We will proceed with CT scan of the brain for reassurance that he does not have any acute physical abnormalities Consultations: Discussion with social services counselor, Treatments: Tylenol for low-grade headache Discussion: 75-year-old gentleman with worsening depression, currently working with a cognitive behavioral therapist, on an SSRI, April began having worsening functional seizures that are likely related to his depression. He presents today after considering the possibility of pain himself in his requesting voluntary hospitalization regarding his suicidal ideation. He has been evaluated by our social services counselor. I believe he represents good adal voluntary admission and we will begin working on options Has been accepted at [facility] voluntary psychiatric inpatient. We will arrange for transplant Discharge Plan Departure Patient Disposition: Xfer Psychiatric Hosp Clinical Impression: Depression with suicidal ideation Prescriptions: No Action cetirizine [Zyrtec] 10 mg tablet 10 mg PO DAILY PRN (Reason: Allergy Symptoms) nitroglycerin 0.4 mg tablet, sublingual 0.4 mg sublingual Q5-15M PRN (Reason: Chest Pain) Rx Instructions: do not exceed 3 doses per episode aspirin [Adult Low Dose Aspirin] 81 mg tablet,delayed release (DR/EC) 81 mg PO DAILY atorvastatin 40 mg tablet 40 mg PO BEDTIME Qty: 90 3RF fluoxetine 10 mg capsule 10 mg PO DAILY Qty: 90 0RF Trelegy Ellipta 100-62.5-25 mcg blister with device 1 inh inhalation DAILY Qty: 90 3RF Rx Instructions: [facility] fax hydrocodone-acetaminophen 5-325 mg tablet 1 tab PO Q8H PRN (Reason: pain) Qty: 15 0RF Patient Comments: RARELY TAKES PER ondansetron 4 mg tablet,disintegrating 4 mg PO TID PRN (Reason: nausea and vomiting) Qty: 30 1RF ranolazine 500 mg tablet extended release 12 hr 500 mg PO BID isosorbide dinitrate 20 mg tablet 20 mg PO BID Qty: 180 1RF levetiracetam 500 mg tablet 500 mg PO BID pantoprazole 40 mg tablet,delayed release (DR/EC) 40 mg PO DAILY multivitamin Tablet 1 tab PO DAILY Glucosamine Chondroitin 1,200 mg tablet 1,200 mg PO BID Referrals: aKthryn Weinstein DO [Primary Care Provider, Family Practice]
[2025-08-15] MEDS: ACETAMINOPHEN 325 MG TABLET 975 MG PO (17:14)
--- NOTE | 2025-08-15 17:18 | DI.CT.S_ITS ---
PROCEDURE: CT HEAD/BRAIN WO CON
[2025-08-15 18:39] LABS: UR Morphine/Opiate cutoff 300 Negative (Negative); Ur Specific Gravity Normal (Normal); Urine MDMA Negative (Negative); Urine Methamphetamines Negative (Negative); Urine Tetrahydrocannabinol Positive (Negative); Urine Tricyclic Antidepressant Negative (Negative)
--- NOTE | 2025-08-15 19:37 | CM.SWNOTE ---
Addendum entered by SANCHO Moran 08/15/25 19:56: ED VISION CARE ASSOCIATE Note: VISION CARE ASSOCIATE received call from Srinivasan at [facility], Intake reports patient is accepted for inpatient treatment, they are requesting patient to arrive at their facility at next available transport time. Provider: ION Gutierrez RN-RN Report#: [phone] ED ASSISTANT EDUCATION DIRECTOR graciously will call transport on pt behalf. VISION CARE ASSOCIATE notified inhalation therapy aides teacher, ASSISTANT EDUCATION DIRECTOR, and pt RN; requested to relay this to provider when available. VISION CARE ASSOCIATE notified pt. TSEPHANIE Adams Original Note: ED VISION CARE ASSOCIATE Note: ED VISION CARE ASSOCIATE initiated bed search for inpatient BH treatment. Pt expressed preference for only inquiring with [facility]. VISION CARE ASSOCIATE calls [facility], it was reported that there are beds available but they do not consider pts over the age of 65 in their BH Unit. VISION CARE ASSOCIATE calls [facility], it was reported that there are beds available. VISION CARE ASSOCIATE sent packet for review via fax. Also reviewed Voluntary Admission Agreement with pt, who signed the form; sent via fax. Plan: Pending acceptance at inpatient BH facility for BH treatment. STEPHANIE Adams
[2025-08-15 19:44] LABS: COVID19 -Nasal RAPID Negative (Negative)
[2025-08-15 20:15] VITALS: BP 119/68; PULSE 56; RESP 15; TEMP 37.2; O2SAT 92
== END 2025-08-15 21:27 ==
PROVIDERS: Emergency Medicine; Emergency Provider Emergency Medicine; PCP Family Medicine
DX: F32.A Depression, unspecified (principal)
CPT/HCPCS: 70450; 80053; 80305; 80320; 80329; 84443; 85025; 87635; 93005; 99284; G0480

== ENCOUNTER 2025-09-12 06:47 | Emergency (ER) | payer MEDICARE, OTHER, SELFPAY ==
[2025-04-08 01:14] VITALS: BMI 30.6
[2025-09-12] VITALS (27 sets, daily range): BP systolic 131–177; BP diastolic 60–99; PULSE 59–93; RESP 9–19; TEMP 36.2–37; O2SAT 88–99
--- NOTE | 2025-09-12 06:58 | ED.SEIZURE ---
HPI - Seizure <Solomon Stoner MD - Last Filed: 09/13/25 01:02> General Chief Complaint: Seizure Stated Complaint: seizure Time Seen by Provider: 09/12/25 06:57 History of Present Illness HPI Narrative: 75-year-old male comes in via paramedics status post grand mal seizure for an unknown amount of time that was witnessed by his . He was 1st witnessed having a seizure earlier in March this year and recently diagnosed in June as having functional seizure disorder. He is still currently in a postictal state here in the ER. He was given 2 mg of Versed via paramedics prior to arrival. Patient is sleepy but arousable here in the ED. Related Data Home Medications ?Medication ?Instructions ?Recorded ?Confirmed aspirin 81 mg tablet,delayed 81 mg PO DAILY 09/03/21 08/24/25 release (Adult Low Dose Aspirin) cetirizine 10 mg tablet (Zyrtec) 10 mg PO DAILY PRN Allergy Symptoms 12/03/21 08/24/25 nitroglycerin 0.4 mg sublingual 0.4 mg sublingual Q5-15M PRN Chest 12/03/21 08/24/25 tablet Pain multivitamin 1 tab PO DAILY 11/28/22 08/24/25 ranolazine 500 mg tablet,extended 500 mg PO BID 08/04/23 08/24/25 release,12 hr Glucosamine Chondroitin 1,200 mg PO BID 04/08/25 08/24/25 pantoprazole 40 mg tablet,delayed 40 mg PO DAILY 04/29/25 08/24/25 release Previous Rx's ?Medication ?Instructions ?Recorded atorvastatin 40 mg tablet 40 mg PO BEDTIME #90 tabs 02/02/21 isosorbide dinitrate 20 mg tablet 20 mg PO BID #180 tabs 12/08/23 hydrocodone 5 mg-acetaminophen 325 1 tab PO Q8H PRN pain #15 tabs 04/22/24 mg tablet ondansetron 4 mg disintegrating 4 mg PO TID PRN nausea and 06/15/25 tablet vomiting #30 tabs fluticasone fur. 100 mcg-umeclid 1 inh inhalation DAILY #90 ea 06/30/25 62.5 mcg-vilant 25 mcg inhalat.powder (Trelegy Ellipta) zolpidem 5 mg tablet (Ambien) 2.5 - 5 mg (0.5 - 1 x 5 mg) PO 08/24/25 BEDTIME PRN insomnia #30 tabs fluoxetine 20 mg capsule 20 mg PO DAILY #90 caps 09/12/25 Allergies Allergy/AdvReac Type Severity Reaction Status Date / Time No Known Drug Allergies Allergy Verified 09/12/25 07:03 Review of Systems <Solomon Stoner MD - Last Filed: 09/13/25 01:02> Review of Systems ROS Unobtainable: Unobtainable due to mental status/LOC Patient History <Solomon Stoner MD - Last Filed: 09/13/25 01:02> Medical History Heart attack (04/09/05) Fatigue Hiatal hernia Iron deficiency anemia Lumbar spinal stenosis Obesity (BMI 30-39.9) Insomnia Melanoma (~10/2018) Vision disorder Chicken pox Diverticular disease Coronary artery disease (~2004) Surgical History Hx of tonsillectomy H/O hernia repair S/P angioplasty Ankle pain (~2009) Colon polyps Family History Father No problems noted. Mother No problems noted. Sister No problems noted. Social History marital status: household members: spouse lives independently: Yes occupational status: previously employed Tobacco: How many years used: 22 alcohol intake: current substance use type: marijuana alcohol intake frequency: 0-2 drinks per day Exam <Solomon Stoner MD - Last Filed: 09/13/25 01:02> Narrative Exam Narrative: General: Patient appears to be sleepy but arousable Head: normocephalic, atraumatic, HEENT: Pupils equal round reactive, eyes tracking well, neck supple, no JVD Heart: regular rate and rhythm, no murmurs, rubs, or gallops heard Lungs: clear to auscultation, no adventitious sounds Abdomen: soft , nontender, nondistended, positive bowel sounds Neurological: no focal neurological signs, moving all extremities well Initial Vital Signs Initial Vital Signs: Vital Signs Pulse Rate 93 H 09/12/25 07:02 Pulse Oximetry 89 L 09/12/25 07:02 <Oli Allred MD - Last Filed: 09/13/25 07:19> Initial Vital Signs Initial Vital Signs: Vital Signs Pulse Rate 93 H 09/12/25 07:02 Pulse Oximetry 89 L 09/12/25 07:02 Course <Solomon Stoner MD - Last Filed: 09/13/25 01:02> Orders Ordered: Discontinued Medications Sodium Chloride (Normal Saline 0.9%) 1,000 mls @ 1,000 mls/hr IV BOLUS ONE Stop: 09/12/25 08:41 Last Infusion: 09/12/25 09:37 Dose: Infused Documented By: Admin: 09/12/25 08:08 Dose: 1,000 mls/hr Documented By: VALERIE Levetiracetam 1,000 mg/ Sodium (Chloride) 110 mls @ 440 mls/hr IV NOW ONE Stop: 09/12/25 09:18 Last Infusion: 09/12/25 13:36 Dose: Infused Documented By: Admin: 09/12/25 09:37 Dose: 440 mls/hr Documented By: SASHA Acetaminophen (Ofirmev) 1,000 mg in 100 mls @ 400 mls/hr IV NOW ONE Stop: 09/12/25 12:58 Last Infusion: 09/12/25 13:36 Dose: Infused Documented By: Admin: 09/12/25 13:11 Dose: 400 mls/hr Documented By: SASHA Lorazepam (Lorazepam 2 Mg/Ml Inj) 1 mg IV NOW ONE Stop: 09/12/25 09:22 Last Admin: 09/12/25 09:18 Dose: 1 mg Documented By: VALERIE Metoclopramide HCl (Metoclopramide 10 Mg/2 Ml Inj) 10 mg IV NOW ONE Stop: 09/12/25 15:15 Last Admin: 09/12/25 15:26 Dose: 10 mg Documented By: NICOLE Vital Signs Vital signs: Vital Signs - 8 hr 09/12/25 07:02 09/12/25 07:03 09/12/25 07:30 Temperature 97.2 F L Pulse Rate 93 H 72 Respiratory Rate 16 Blood Pressure 143/80 H 131/82 Pulse Oximetry 89 L 88 L Oxygen Delivery Method Room Air 09/12/25 07:30 09/12/25 08:00 09/12/25 08:01 Temperature Pulse Rate 76 69 66 Respiratory Rate 15 14 10 L Blood Pressure Pulse Oximetry 91 91 91 Oxygen Delivery Method 09/12/25 08:01 09/12/25 08:30 09/12/25 08:30 Temperature Pulse Rate 65 Respiratory Rate 11 L Blood Pressure 146/99 H 168/87 H Pulse Oximetry 99 Oxygen Delivery Method 09/12/25 08:58 09/12/25 08:58 09/12/25 09:00 Temperature Pulse Rate 65 68 Respiratory Rate 12 13 Blood Pressure 161/80 H Pulse Oximetry 99 99 Oxygen Delivery Method 09/12/25 09:00 09/12/25 09:30 09/12/25 09:30 Temperature Pulse Rate 73 Respiratory Rate 19 Blood Pressure 158/82 H 155/81 H Pulse Oximetry 97 Oxygen Delivery Method 09/12/25 10:00 09/12/25 10:00 09/12/25 10:30 Temperature Pulse Rate 71 Respiratory Rate 19 Blood Pressure 170/87 H 144/91 H Pulse Oximetry 93 Oxygen Delivery Method 09/12/25 10:30 09/12/25 11:00 09/12/25 11:00 Temperature Pulse Rate 67 61 Respiratory Rate 15 9 L Blood Pressure 159/83 H Pulse Oximetry 95 98 Oxygen Delivery Method 09/12/25 11:30 09/12/25 11:30 09/12/25 12:00 Temperature Pulse Rate 62 59 L Respiratory Rate 18 19 Blood Pressure 141/82 H Pulse Oximetry 98 97 Oxygen Delivery Method 09/12/25 12:00 09/12/25 12:30 09/12/25 12:30 Temperature Pulse Rate 59 L Respiratory Rate 12 Blood Pressure 162/76 H 149/78 H Pulse Oximetry 97 Oxygen Delivery Method 09/12/25 13:00 09/12/25 13:01 09/12/25 13:01 Temperature Pulse Rate 61 61 Respiratory Rate 13 13 Blood Pressure 177/79 H Pulse Oximetry 94 95 Oxygen Delivery Method 09/12/25 13:30 09/12/25 13:30 09/12/25 14:00 Temperature Pulse Rate 61 Respiratory Rate 18 Blood Pressure 151/79 H 132/60 Pulse Oximetry 94 Oxygen Delivery Method 09/12/25 14:00 Temperature 98.6 F Pulse Rate 62 Respiratory Rate 13 Blood Pressure Pulse Oximetry 94 Oxygen Delivery Method <Oli Allred MD - Last Filed: 09/13/25 07:19> Orders Ordered: Discontinued Medications Sodium Chloride (Normal Saline 0.9%) 1,000 mls @ 1,000 mls/hr IV BOLUS ONE Stop: 09/12/25 08:41 Last Infusion: 09/12/25 09:37 Dose: Infused Documented By: Admin: 09/12/25 08:08 Dose: 1,000 mls/hr Documented By: VALERIE Levetiracetam 1,000 mg/ Sodium (Chloride) 110 mls @ 440 mls/hr IV NOW ONE Stop: 09/12/25 09:18 Last Infusion: 09/12/25 13:36 Dose: Infused Documented By: Admin: 09/12/25 09:37 Dose: 440 mls/hr Documented By: SASHA Acetaminophen (Ofirmev) 1,000 mg in 100 mls @ 400 mls/hr IV NOW ONE Stop: 09/12/25 12:58 Last Infusion: 09/12/25 13:36 Dose: Infused Documented By: Admin: 09/12/25 13:11 Dose: 400 mls/hr Documented By: SASHA Lorazepam (Lorazepam 2 Mg/Ml Inj) 1 mg IV NOW ONE Stop: 09/12/25 09:22 Last Admin: 09/12/25 09:18 Dose: 1 mg Documented By: VALERIE Metoclopramide HCl (Metoclopramide 10 Mg/2 Ml Inj) 10 mg IV NOW ONE Stop: 09/12/25 15:15 Last Admin: 09/12/25 15:26 Dose: 10 mg Documented By: NICOLE Vital Signs Vital signs: Vital Signs - 8 hr 09/12/25 07:02 09/12/25 07:03 09/12/25 07:30 Temperature 97.2 F L Pulse Rate 93 H 72 Respiratory Rate 16 Blood Pressure 143/80 H 131/82 Pulse Oximetry 89 L 88 L Oxygen Delivery Method Room Air 09/12/25 07:30 09/12/25 08:00 09/12/25 08:01 Temperature Pulse Rate 76 69 66 Respiratory Rate 15 14 10 L Blood Pressure Pulse Oximetry 91 91 91 Oxygen Delivery Method 09/12/25 08:01 09/12/25 08:30 09/12/25 08:30 Temperature Pulse Rate 65 Respiratory Rate 11 L Blood Pressure 146/99 H 168/87 H Pulse Oximetry 99 Oxygen Delivery Method 09/12/25 08:58 09/12/25 08:58 09/12/25 09:00 Temperature Pulse Rate 65 68 Respiratory Rate 12 13 Blood Pressure 161/80 H Pulse Oximetry 99 99 Oxygen Delivery Method 09/12/25 09:00 09/12/25 09:30 09/12/25 09:30 Temperature Pulse Rate 73 Respiratory Rate 19 Blood Pressure 158/82 H 155/81 H Pulse Oximetry 97 Oxygen Delivery Method 09/12/25 10:00 09/12/25 10:00 09/12/25 10:30 Temperature Pulse Rate 71 Respiratory Rate 19 Blood Pressure 170/87 H 144/91 H Pulse Oximetry 93 Oxygen Delivery Method 09/12/25 10:30 09/12/25 11:00 09/12/25 11:00 Temperature Pulse Rate 67 61 Respiratory Rate 15 9 L Blood Pressure 159/83 H Pulse Oximetry 95 98 Oxygen Delivery Method 09/12/25 11:30 09/12/25 11:30 09/12/25 12:00 Temperature Pulse Rate 62 59 L Respiratory Rate 18 19 Blood Pressure 141/82 H Pulse Oximetry 98 97 Oxygen Delivery Method 09/12/25 12:00 09/12/25 12:30 09/12/25 12:30 Temperature Pulse Rate 59 L Respiratory Rate 12 Blood Pressure 162/76 H 149/78 H Pulse Oximetry 97 Oxygen Delivery Method 09/12/25 13:00 09/12/25 13:01 09/12/25 13:01 Temperature Pulse Rate 61 61 Respiratory Rate 13 13 Blood Pressure 177/79 H Pulse Oximetry 94 95 Oxygen Delivery Method 09/12/25 13:30 09/12/25 13:30 09/12/25 14:00 Temperature Pulse Rate 61 Respiratory Rate 18 Blood Pressure 151/79 H 132/60 Pulse Oximetry 94 Oxygen Delivery Method 09/12/25 14:00 Temperature 98.6 F Pulse Rate 62 Respiratory Rate 13 Blood Pressure Pulse Oximetry 94 Oxygen Delivery Method MDM - Seizure <Solomon Stoner MD - Last Filed: 09/13/25 01:02> Lab Data 09/12/25 06:45 09/12/25 15:54 Labs: Lab Results 09/12/25 09/12/25 09/12/25 Range/Units 06:45 08:55 09:18 WBC 10.3 (4.5-11.0) X10^3/uL RBC 5.84 (4.5-5.9) X10^6/uL Hgb 18.1 H (13.5-17.5) g/dL Hct 52.5 (41-53) % MCV 89.8 (80-100) fL MCH 30.9 (26-34) PG MCHC 34.4 (30-36) % RDW 17.2 H (11.6-14.8) % Plt Count 149 L (150-400) X10^3/uL Neut % (Auto) 75.4 H (50-75) % Lymph % (Auto) 16.3 L (25-40) % Ponce % (Auto) 6.0 (3-14) % Eos % (Auto) 1.6 L (2-4) % Baso % (Auto) 0.7 (0-2) % Neut # (Auto) 7800 H (7559-9538) /uL Lymph # (Auto) 1700 (3370-1386) /uL Ponce # (Auto) 600 (0-900) /uL Eos # (Auto) 200 (0-450) /uL Baso # (Auto) 100 (0-100) /uL Sodium 142 (137-145) mmol/L Potassium 3.7 (3.4-5.1) mmol/L Chloride 108 H (98-107) mmol/L Carbon Dioxide 12 L (22-32) mmol/L BUN 16 (9-20) mg/dL Creatinine 0.91 (0.66-1.25) mg/dL Estimated GFR > 60 (>60) mL/min BUN/Creatinine Ratio 17.6 (6-22) Glucose 159 H (70-99) mg/dL Lactate 10.0 H* 3.4 H (0.7-2.1) mmol/L Calcium 9.7 (8.4-10.2) mg/dL Total Bilirubin 1.4 H (0.2-1.3) mg/dL AST 31 (17-59) IU/L ALT 31 (<50) IU/L Alkaline Phosphatase 109 (38-126) U/L Total Creatine Kinase 43 L (55-170) U/L Total Protein 7.7 (6.3-8.2) g/dL Albumin 5.0 (3.5-5.0) g/dL Globulin 2.7 (1.7-4.1) g/dL Albumin/Globulin Ratio 1.9 (1.0-2.8) Urine Color Yellow Urine Appearance Clear Urine pH 5.5 (4.5-8.0) Ur Specific [place] >=1.030 H (1.000-1.035) Urine Protein 1+ H (Negative) Urine Glucose (UA) Negative (Negative) g/dL Urine Ketones Negative (NEGATIVE) Urine Occult Blood Negative (Negative) Urine Nitrate Negative (Negative) Urine Bilirubin Negative (NEGATIVE) Urine Urobilinogen 0.2 (0.2) E.U./dL Ur Leukocyte Esterase Negative (NEGATIVE) Urine RBC None seen (0-5/HPF) Urine WBC None seen (0-5/HPF) Ur Squamous Epith Cells None seen (0-5/HPF) Urine Bacteria None seen (None) Ur Culture Indicated? Cult not indicated Vol Urine Centrifuged 10ml (spun) 09/12/25 09/12/25 Range/Units 11:14 15:54 WBC (4.5-11.0) X10^3/uL RBC (4.5-5.9) X10^6/uL Hgb (13.5-17.5) g/dL Hct (41-53) % MCV (80-100) fL MCH (26-34) PG MCHC (30-36) % RDW (11.6-14.8) % Plt Count (150-400) X10^3/uL Neut % (Auto) (50-75) % Lymph % (Auto) (25-40) % [place] % (Auto) (3-14) % Eos % (Auto) (2-4) % Baso % (Auto) (0-2) % Neut # (Auto) (6332-4031) /uL Lymph # (Auto) (9891-0590) /uL Ponce # (Auto) (0-900) /uL Eos # (Auto) (0-450) /uL Baso # (Auto) (0-100) /uL Sodium 142 (137-145) mmol/L Potassium 3.6 (3.4-5.1) mmol/L Chloride 111 H (98-107) mmol/L Carbon Dioxide 21 L (22-32) mmol/L BUN 13 (9-20) mg/dL Creatinine 0.76 (0.66-1.25) mg/dL Estimated GFR > 60 (>60) mL/min BUN/Creatinine Ratio 17.1 (6-22) Glucose 87 (70-99) mg/dL Lactate 1.4 (0.7-2.1) mmol/L Calcium 9.4 (8.4-10.2) mg/dL Total Bilirubin 1.6 H (0.2-1.3) mg/dL AST 24 (17-59) IU/L ALT 20 (<50) IU/L Alkaline Phosphatase 101 (38-126) U/L Total Creatine Kinase (55-170) U/L Total Protein 6.9 (6.3-8.2) g/dL Albumin 4.4 (3.5-5.0) g/dL Globulin 2.5 (1.7-4.1) g/dL Albumin/Globulin Ratio 1.8 (1.0-2.8) Urine Color Urine Appearance Urine pH (4.5-8.0) Ur Specific [place] (1.000-1.035) Urine Protein (Negative) Urine Glucose (UA) (Negative) g/dL Urine Ketones (NEGATIVE) Urine Occult Blood (Negative) Urine Nitrate (Negative) Urine Bilirubin (NEGATIVE) Urine Urobilinogen (0.2) E.U./dL Ur Leukocyte Esterase (NEGATIVE) Urine RBC (0-5/HPF) Urine WBC (0-5/HPF) Ur Squamous Epith Cells (0-5/HPF) Urine Bacteria (None) Ur Culture Indicated? Vol Urine Centrifuged <Oli Allred MD - Last Filed: 09/13/25 07:19> Lab Data Labs: Lab Results 09/12/25 09/12/25 09/12/25 Range/Units 06:45 08:55 09:18 WBC 10.3 (4.5-11.0) X10^3/uL RBC 5.84 (4.5-5.9) X10^6/uL Hgb 18.1 H (13.5-17.5) g/dL Hct 52.5 (41-53) % MCV 89.8 (80-100) fL MCH 30.9 (26-34) PG MCHC 34.4 (30-36) % RDW 17.2 H (11.6-14.8) % Plt Count 149 L (150-400) X10^3/uL Neut % (Auto) 75.4 H (50-75) % Lymph % (Auto) 16.3 L (25-40) % [place] % (Auto) 6.0 (3-14) % Eos % (Auto) 1.6 L (2-4) % Baso % (Auto) 0.7 (0-2) % Neut # (Auto) 7800 H (8989-1739) /uL Lymph # (Auto) 1700 (9926-4257) /uL Ponce # (Auto) 600 (0-900) /uL Eos # (Auto) 200 (0-450) /uL Baso # (Auto) 100 (0-100) /uL Sodium 142 (137-145) mmol/L Potassium 3.7 (3.4-5.1) mmol/L Chloride 108 H (98-107) mmol/L Carbon Dioxide 12 L (22-32) mmol/L BUN 16 (9-20) mg/dL Creatinine 0.91 (0.66-1.25) mg/dL Estimated GFR > 60 (>60) mL/min BUN/Creatinine Ratio 17.6 (6-22) Glucose 159 H (70-99) mg/dL Lactate 10.0 H* 3.4 H (0.7-2.1) mmol/L Calcium 9.7 (8.4-10.2) mg/dL Total Bilirubin 1.4 H (0.2-1.3) mg/dL AST 31 (17-59) IU/L ALT 31 (<50) IU/L Alkaline Phosphatase 109 (38-126) U/L Total Creatine Kinase 43 L (55-170) U/L Total Protein 7.7 (6.3-8.2) g/dL Albumin 5.0 (3.5-5.0) g/dL Globulin 2.7 (1.7-4.1) g/dL Albumin/Globulin Ratio 1.9 (1.0-2.8) Urine Color Yellow Urine Appearance Clear Urine pH 5.5 (4.5-8.0) Ur Specific [place] >=1.030 H (1.000-1.035) Urine Protein 1+ H (Negative) Urine Glucose (UA) Negative (Negative) g/dL Urine Ketones Negative (NEGATIVE) Urine Occult Blood Negative (Negative) Urine Nitrate Negative (Negative) Urine Bilirubin Negative (NEGATIVE) Urine Urobilinogen 0.2 (0.2) E.U./dL Ur Leukocyte Esterase Negative (NEGATIVE) Urine RBC None seen (0-5/HPF) Urine WBC None seen (0-5/HPF) Ur Squamous Epith Cells None seen (0-5/HPF) Urine Bacteria None seen (None) Ur Culture Indicated? Cult not indicated Vol Urine Centrifuged 10ml (spun) 09/12/25 09/12/25 Range/Units 11:14 15:54 WBC (4.5-11.0) X10^3/uL RBC (4.5-5.9) X10^6/uL Hgb (13.5-17.5) g/dL Hct (41-53) % MCV (80-100) fL MCH (26-34) PG MCHC (30-36) % RDW (11.6-14.8) % Plt Count (150-400) X10^3/uL Neut % (Auto) (50-75) % Lymph % (Auto) (25-40) % [place] % (Auto) (3-14) % Eos % (Auto) (2-4) % Baso % (Auto) (0-2) % Neut # (Auto) (0593-1131) /uL Lymph # (Auto) (9688-2427) /uL [place] # (Auto) (0-900) /uL Eos # (Auto) (0-450) /uL Baso # (Auto) (0-100) /uL Sodium 142 (137-145) mmol/L Potassium 3.6 (3.4-5.1) mmol/L Chloride 111 H (98-107) mmol/L Carbon Dioxide 21 L (22-32) mmol/L BUN 13 (9-20) mg/dL Creatinine 0.76 (0.66-1.25) mg/dL Estimated GFR > 60 (>60) mL/min BUN/Creatinine Ratio 17.1 (6-22) Glucose 87 (70-99) mg/dL Lactate 1.4 (0.7-2.1) mmol/L Calcium 9.4 (8.4-10.2) mg/dL Total Bilirubin 1.6 H (0.2-1.3) mg/dL AST 24 (17-59) IU/L ALT 20 (<50) IU/L Alkaline Phosphatase 101 (38-126) U/L Total Creatine Kinase (55-170) U/L Total Protein 6.9 (6.3-8.2) g/dL Albumin 4.4 (3.5-5.0) g/dL Globulin 2.5 (1.7-4.1) g/dL Albumin/Globulin Ratio 1.8 (1.0-2.8) Urine Color Urine Appearance Urine pH (4.5-8.0) Ur Specific [place] (1.000-1.035) Urine Protein (Negative) Urine Glucose (UA) (Negative) g/dL Urine Ketones (NEGATIVE) Urine Occult Blood (Negative) Urine Nitrate (Negative) Urine Bilirubin (NEGATIVE) Urine Urobilinogen (0.2) E.U./dL Ur Leukocyte Esterase (NEGATIVE) Urine RBC (0-5/HPF) Urine WBC (0-5/HPF) Ur Squamous Epith Cells (0-5/HPF) Urine Bacteria (None) Ur Culture Indicated? Vol Urine Centrifuged Imaging Data CT scan - head: Radiologist's Impression: [place] [address] CT Scan Report Signed Patient: Sharif Manning MR#: [id number] : 1950 Acct:[id number] Age/Sex: 75 / M Date of Service: 09/12/25 Loc: ED Accession Number: [id number] Procedure: CT head/brain wo con Ordering Provider: Oli Allred MD PROCEDURE: CT HEAD/BRAIN WO CON INDICATIONS: seizure TECHNIQUE: Noncontrast 4.5 mm thick angled axial sections acquired from the foramen magnum to the vertex, with coronal and sagittal reformats. For radiation dose reduction, the following was used: automated exposure control, adjustment of mA and/or kV according to patient size. COMPARISON: , CT, CT HEAD/BRAIN WO CON, 08/15/2025, 17:24. FINDINGS: Image quality: Diagnostic. CSF spaces: Basal cisterns are patent. No extra-axial fluid collections. The ventricles are symmetric in size and shape. Brain: No intracranial bleeds or mass effect. There is cerebral volume loss, with resultant ventricular and sulcal prominence. There are periventricular and deep white matter chronic small vessel ischemic changes. There is intracranial internal carotid artery atherosclerosis. Skull and face: Calvarium and visualized facial bones appear intact, without suspicious lesions. Sinuses: Visualized sinuses and mastoids are clear. IMPRESSION: No acute intracranial pathology. Approved by: Tracy Rey M.D.,Ph.D. on 09/12/2025 at 11:20 [facility] Narrative Medical decision making narrative: 75-year-old male comes in via paramedics status post grand mal seizure for an unknown amount of time that was witnessed by his . He was 1st witnessed having a seizure earlier in March this year and recently diagnosed in June as having functional seizure disorder. He is still currently in a postictal state here in the ER. He was given 2 mg of Versed via paramedics prior to arrival. Patient is sleepy but arousable here in the ED. 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 April 08, 2025 brain MRI done here. EKG sinus bradycardia rate [address]-elevation Lab Test results independently reviewed as above. Pertinent findings: WBC 10.3 hemoglobin 18, sodium 142 potassium 3.7 BUN 16 creatinine 0.91 glucose 159 lactate 10.0 calcium 9.7 urinalysis negative nitrate negative ketone negative leukocyte esterase Consultations: 9:45 a.m.. I spoke with patient's neurologist at [place], dr gore, does agree the patient should be transferred but they do not have bed available at this time. Agrees with Keppra, 1000 mg b.i.d. 10:36 a.m., I spoke with Dr. Zimmerman, [facility]. They will check if they have continuous EEG ability to accept patient she recommends repeat CT head 11:37 a.m.. I spoke with [facility] Dr. Lopez, will accept patient Re-evaluations: 9:18 a.m.. Patient just experience a 2 minute generalized seizure. I responded immediately to the room. 1 mg Ativan provided. Reviewed with will need to transfer to [place] for breakthrough seizures. Keppra will be started. She agrees. 10:30 a.m.. Updated patient and . No beds available at [facility]. We will look at [facility] [place]. Or possibly [place] Discussion: Appropriate for transfer as need higher level of care with neurology services and continuity of care at [facility]. Diagnosis: Breakthrough seizure September 12, 2025 at 7:[address] Allred: Sign-out from Dr. Stoner 3-10 minute episode. Patient has history of functional seizure disorder. Has been evaluated by [facility] MRI brain CT head EEG. No medications required for this type of seizure according to . patient here for grand mal seizure. Witnessed by . 3-10 minute episode. 7:20 a.m.. I spoke with at bedside patient now awake alert or x3. This is his typical seizures according to them. No bowel or bladder incontinence. No tongue biting. No fall or injury. No recent illness. No preceding chest pain headache abdominal pain back pain. states he has daily small seizures. They have appointment with new neurologist in [place] this Friday. Patient in no distress. They agree no imaging indicated at this time. Basic lab work will be done and EKG as well. Has clear speech. No tongue abrasion. Moving all 4 extremities without difficulty. No unilateral weakness. Fast exam is negative. Discharge Plan Departure Patient Disposition: [facility] Clinical Impression: Breakthrough seizure Prescriptions: No Action cetirizine [Zyrtec] 10 mg tablet 10 mg PO DAILY PRN (Reason: Allergy Symptoms) nitroglycerin 0.4 mg tablet, sublingual 0.4 mg sublingual Q5-15M PRN (Reason: Chest Pain) Rx Instructions: do not exceed 3 doses per episode aspirin [Adult Low Dose Aspirin] 81 mg tablet,delayed release (DR/EC) 81 mg PO DAILY atorvastatin 40 mg tablet 40 mg PO BEDTIME Qty: 90 3RF Trelegy Ellipta 100-62.5-25 mcg blister with device 1 inh inhalation DAILY Qty: 90 3RF Rx Instructions: [facility] fax fluoxetine 20 mg capsule 20 mg PO DAILY Qty: 90 0RF hydrocodone-acetaminophen 5-325 mg tablet 1 tab PO Q8H PRN (Reason: pain) Qty: 15 0RF Patient Comments: RARELY TAKES PER ondansetron 4 mg tablet,disintegrating 4 mg PO TID PRN (Reason: nausea and vomiting) Qty: 30 1RF ranolazine 500 mg tablet extended release 12 hr 500 mg PO BID isosorbide dinitrate 20 mg tablet 20 mg PO BID Qty: 180 1RF pantoprazole 40 mg tablet,delayed release (DR/EC) 40 mg PO DAILY zolpidem [Ambien] 5 mg tablet 2.5 - 5 mg PO BEDTIME PRN (Reason: insomnia) Qty: 30 0RF multivitamin Tablet 1 tab PO DAILY Glucosamine Chondroitin 1,200 mg tablet 1,200 mg PO BID Referrals: Kathryn Weinstein DO [Primary Care Provider, Family Practice] Stand Alone Forms: Patient Portal/API
[2025-09-12 07:18] LABS: Add Manual Diff / Slide Review NO; Hematocrit 52.5 % (41-53); Hemoglobin 18.1 g/dL (13.5-17.5); Lymphocytes Absolute Auto 1700 /uL (1100-4500); Mean Corpuscular HGB Conc 34.4 % (30-36); Mean Corpuscular Hemoglobin 30.9 PG (26-34); Mean Corpuscular Volume 89.8 fL (80-100); Platelet Count 149 X10^3/uL (150-400)
[2025-09-12 07:25] LABS: Alanine Aminotransferase 31 IU/L (<50); Albumin 5.0 g/dL (3.5-5.0); Albumin Globulin Ratio 1.9 (1.0-2.8); Alkaline Phosphatase 109 U/L (38-126); Blood Urea Nitrogen 16 mg/dL (9-20); Calcium 9.7 mg/dL (8.4-10.2); Carbon Dioxide 12 mmol/L (22-32); Chloride 108 mmol/L (98-107); Estimated Glomerular Filt Rate > 60 mL/min (>60); Globulin 2.7 g/dL (1.7-4.1); Glucose 159 mg/dL (70-99); HEMOLYSIS 15 (0-50); Potassium 3.7 mmol/L (3.4-5.1); Sodium 142 mmol/L (137-145); Total Protein 7.7 g/dL (6.3-8.2)
[2025-09-12 07:41] LABS: Lactate (Lactic Acid) 10.0 mmol/L (0.7-2.1)
[2025-09-12 07:50] LABS: Creatine Kinase 43 U/L (55-170)
[2025-09-12] MEDS: SODIUM CHLORIDE 0.9% 1,000 ML 1000 ML IV (08:08)
[2025-09-12 08:51] LABS: Reflexed Lactate in 2 Hours Y
[2025-09-12 09:07] LABS: Appearance Urine UA CLEAR; Bilirubin Urine UA NEGATIVE (NEGATIVE); Color Urine UA YELLOW; Glucose Urine UA NEGATIVE (Negative); Ketones Urine UA NEGATIVE (NEGATIVE); Leukocyte Esterase Urine UA NEGATIVE (NEGATIVE); Nitrite Urine UA NEGATIVE (Negative); Occult Blood Urine UA NEGATIVE (Negative); Protein Urine UA 1+ (Negative); Specific Gravity Urine UA >=1.030 (1.000-1.035); Urobilinogen Urine UA 0.2 E.U./dL (0.2); pH Urine UA 5.5 (4.5-8.0)
[2025-09-12 09:17] LABS: Culture Indicated Urine Cult Not Indicated
[2025-09-12 09:38] LABS: Lactate (Lactic Acid) 3.4 mmol/L (0.7-2.1)
--- NOTE | 2025-09-12 10:35 | DI.CT.S_ITS ---
PROCEDURE: CT HEAD/BRAIN WO CON INDICATIONS: seizure TECHNIQUE: Noncontrast 4.5 mm thick angled axial sections acquired from the foramen magnum to the vertex, with coronal and sagittal reformats. For radiation dose reduction, the following was used: automated exposure control, adjustment of mA and/or kV according to patient size. COMPARISON: [facility], CT, CT HEAD/BRAIN WO CON, 08/15/2025, 17:24. FINDINGS: Image quality: Diagnostic. CSF spaces: Basal cisterns are patent. No extra-axial fluid collections. The ventricles are symmetric in size and shape. Brain: No intracranial bleeds or mass effect. There is cerebral volume loss, with resultant ventricular and sulcal prominence. There are periventricular and deep white matter chronic small vessel ischemic changes. There is intracranial internal carotid artery atherosclerosis. Skull and face: Calvarium and visualized facial bones appear intact, without suspicious lesions. Sinuses: Visualized sinuses and mastoids are clear. IMPRESSION: No acute intracranial pathology. Approved by: Tracy Rey M.D.,Ph.D. on 09/12/2025 at 11:20
--- NOTE | 2025-09-12 10:58 | EKG_ITS ---
[place] [address] [place] [id number] Test Date: 2025-09-12 Pat Name: Sharif Manning Department: [facility] Room: Gender: Male Fund Controller: : 1950 Requested By: Order Number: [id number] Reading MD: Dashawn Howard MD Measurements Intervals [place] Rate: 58 P: 3 NH: 192 QRS: 45 QRSD: 96 T: 103 QT: 472 QTc: 463 Interpretive Statements Sinus bradycardia Nonspecific T wave abnormality Prolonged QT Electronically Signed On 09-12-2025 11:24:30 PST by Dashawn Howard MD
[2025-09-12 11:00] LABS: Reflexed Lactate in 2 Hours Y
[2025-09-12 11:42] LABS: Lactate 2HR (Lactic Acid Rflx) 1.4 mmol/L (0.7-2.1)
[2025-09-12] MEDS: ACETAMINOPHEN IV 1,000 MG/100 ML VIAL 400 MG IV (13:11)
[2025-09-12] MEDS: METOCLOPRAMIDE 10 MG/2 ML INJ IV (15:26)
[2025-09-12 16:18] LABS: Alanine Aminotransferase 20 IU/L (<50); Albumin 4.4 g/dL (3.5-5.0); Albumin Globulin Ratio 1.8 (1.0-2.8); Alkaline Phosphatase 101 U/L (38-126); Blood Urea Nitrogen 13 mg/dL (9-20); Calcium 9.4 mg/dL (8.4-10.2); Carbon Dioxide 21 mmol/L (22-32); Chloride 111 mmol/L (98-107); Estimated Glomerular Filt Rate > 60 mL/min (>60); Globulin 2.5 g/dL (1.7-4.1); Glucose 87 mg/dL (70-99); HEMOLYSIS < 15 (0-50); Potassium 3.6 mmol/L (3.4-5.1); Sodium 142 mmol/L (137-145); Total Protein 6.9 g/dL (6.3-8.2)
--- NOTE | 2025-09-12 16:59 | PC.NURSE ---
JACQUARD LOOM CARD CHANGER NOTE: Started transfer for patient at 0920. /[facility], no beds per Dr. Edwards with neurology.. [facility] accepted [address] Lopez. Hold in ED until EEG bed becomes open. Given bed assignment [facility] [address], bed 535. [facility] contacted for transport, ETA [id number]. Nurse report goes to [phone], please give ETA with ursing report.
== END 2025-09-12 17:16 | disposition short-term general hospital (02) ==
PROVIDERS: Emergency Provider Emergency Medicine; PCP Family Medicine
DX: G40.802 Other epilepsy, not intractable, without status epilepticus (principal)
CPT/HCPCS: 36415; 70450; 80053; 81001; 82550; 83605; 85025; 93005; 93010; 96361; 96365; 96366; 96367; 96368; 96375; 96376; 99284; J0131; J1953; J2060; J2765; J7030; J7050